=== PATIENT | female | born 1955 | race Caucasian/White ===

== ENCOUNTER 2020-02-24 17:44 | Inpatient (IN) | payer OTHER, SELFPAY ==
[2020-02-24] VITALS (9 sets, daily range): BP systolic 174–208; BP diastolic 77–105; PULSE 65–85; RESP 13–18; TEMP 36.4–36.5; O2SAT 92–100; BMI 46.8
--- NOTE | 2020-02-24 17:56 | XR_ITS ---
WS: [id number] PORTABLE CHEST HISTORY: near syncope COMPARISON: 07/24/2018 Lung volumes are decreased. No abnormality identified. No pleural effusion or pneumothorax. Cardiac size: Normal. Mediastinum/Aorta: Normal mediastinum. No osseous abnormality seen. XR/XR chest 1V portable [id number] IMPRESSION: Unremarkable portable chest.
--- NOTE | 2020-02-24 17:57 | ECG_ITS ---
Measurements Intervals [place] Rate: 74 P: 54 FL: 153 QRS: 10 QRSD: 89 T: 60 QT: 384 QTc: 428 SINUS RHYTHM LEFT VENTRICULAR HYPERTROPHY AND ST-T CHANGE [VOLTAGE CRITERIA PLUS ST/T ABNORMALITY] Compared to ECG 07/24/2018 15:37:15 Left ventricular hypertrophy now present ST (T wave) deviation now present Electronically Signed On 02-24-2020 21:54:43 CDT by Jael Pagan M.D. [id number]
--- NOTE | 2020-02-24 18:02 | W.ED.BACK ---
HPI - Back Pain/Injury General: Chief Complaint: Back Pain/Injury Stated Complaint: R SIDED BACK PAIN Time Seen by Provider: 02/24/20 17:46 History of Present Illness: HPI Narrative: Patient arrived via ambulance with an episode earlier today where she felt dizzy when vomited then she had a charley horse in the right side of her low back and she felt kind of faint and went and sat down and nurse that she does working with her decide an ambulance need to be called and she arrived here much improved since feels little tight in her low back on the right side but that it denies any inHas longstanding history of back pain also takes blood pressure medication has a history of fibromyalgia MD elicited complaint: back pain Pertinent past history: prior back pain Onset (ago): hour(s) Timing: now resolved Severity: mild Location: right flank Radiation: none Exacerbating factors: movement Relieving factors: immobilization Context: other (After vomiting) Associated symptoms: Reports vomiting (X1); Deny abdominal pain, chills, fever(s) or nausea Review of Systems Const: Denies: fever(s), chills or body aches Eyes: Denies: change in vision or blurry vision ENMT: Denies: throat pain or nasal congestion Card: Denies: chest pain or dyspnea on exertion Resp: Denies: dyspnea, productive cough or non-productive cough GI: Reports: vomiting (X1); Denies: abdominal pain or nausea Musc: Reports: back pain (Right flank); Denies: extremity pain Skin/Breast: Denies: rash Neuro: Denies: headache(s) Psych: Denies: anxiety or depression James/Lymph: Denies: easy bruising PFS ED PFSH: Social History Smoking and tobacco status: never smoked Physical Exam Const: COMMON NORMALS: no acute distress, average body habitus and patient oriented x3 HENMT: COMMON NORMALS: normocephalic HEAD & SCALP: normal to inspection and normocephalic FACE & SINUS: normal facial exam Eye: COMMON NORMALS: conjunctivae normal GENERAL EYE: appearance normal, both eyes and all related structures CONJUNCTIVA: Yes conjunctivae normal Neck/C-Spine: COMMON NORMALS: no JVD Chest: COMMONS NORMALS: normal inspection of the chest Resp: COMMON NORMALS: normal respiratory effort and clear to auscultation bilaterally AUSCULTATION: clear to auscultation bilaterally Cardio: COMMON NORMALS: no JVD, regular rate and regular rhythm RATE: regular rate RHYTHM: regular rhythm GI: COMMON NORMALS: Normal to inspection, nondistended, normoactive bowel sounds present : BLADDER/KIDNEY EXAM: Yes CVA tenderness Back/Pelvis: GENERAL BACK: Yes CVA tenderness CVA tenderness: right Extremity: COMMON NORMALS: normal to inspection and full ROM Neuro: COMMON NORMALS: patient oriented x3 Course Vital Signs: Vital signs: Vital Signs Temperature 97.7 F 02/24/20 17:46 Pulse Rate 71 02/24/20 17:46 Respiratory Rate 16 02/24/20 17:46 Blood Pressure 180/77 02/24/20 17:46 Pulse Oximetry 98 02/24/20 17:46 MDM - Back Pain/Injury MDM Narrative: Medical decision making narrative: Reviewed troponin level EKG with Dr. De 1929 Lab Data: Labs: Lab Results 02/24/20 02/24/20 02/24/20 Range/Units 18:08 18:08 18:08 WBC 9.0 (4.0-10.0) 10^3/ uL RBC 4.43 (4.1-5.3) 10^6/u L Hgb 13.1 (11.5-15.3) g/dL Hct 43.6 (37.0-47.0) % MCV 98.4 (81-99) fL MCH 29.6 (28.0-34.0) pg MCHC 30.0 (30.0-36.0) g/dL RDW 14.6 (12.1-15.1) % Plt Count 344 (130-400) 10^3/c mm MPV 10.4 (7.4-10.4) fL Neut % (Auto) 69.9 % Lymph % (Auto) 19.7 % [place] % (Auto) 8.8 % Eos % (Auto) 1.1 % Baso % (Auto) 0.3 % Neut # (Auto) 6.3 (1.8-7.7) 10^3/u L Lymph # (Auto) 1.8 (0.8-4.8) 10^3/u L [place] # (Auto) 0.8 (0.2-0.9) 10^3/u L Eos # (Auto) 0.1 (0.0-0.8) 10^3/u L Baso # (Auto) 0.0 (0.0-0.1) 10^3/u L Nucleated RBC % (a uto) 0 % Nucleated RBCs # 0.0 /100WBC Sodium 141 (136-145) mmol/L Potassium 3.9 (3.5-5.1) mmol/L Chloride 102 (98-107) mmol/L Carbon Dioxide 25 (22-29) mmol/L Anion Gap 17.9 (5-19) BUN 13 (8-23) mg/dL Creatinine 0.7 (0.5-0.9) mg/dL GFR Calculation 84.8 L (90-130) mL/min Glucose 120 H (65-115) mg/dL Calculated Osmolal ity 289 (285-295) mOsm/k g Lactate 2.3 H (0.5-2.2) mmol/L Calcium 9.3 (8.5-10.5) mg/dL Total Bilirubin 0.5 (0.15-1.2) mg/dL AST 24 (0-32) U/L ALT 27 (0-33) U/L Alkaline Phosphata se 73 (35-105) IU/L Troponin T Gen 5 n g/L (0-10) ng/mL Total Protein 7.2 (6.6-8.7) g/dL Albumin 4.1 (3.5-5.2) g/dL Globulin 3.1 (1.3-4.6) g/dL Lipase 19 (13-60) U/L Urine Color (Yellow) Urine Appearance (CLEAR) Urine pH (5-7) Ur Specific Gravit y (1.005-1.030) Urine Protein (Negative) Urine Glucose (UA) (Normal) Urine Ketones (Negative) Urine Blood (Negative) Urine Nitrate (Negative) Urine Bilirubin (NEGATIVE) Urine Urobilinogen (Negative) mg/dL Ur Leukocyte Cinda ase (Negative) Urine RBC (0-2) /hpf Urine WBC (0-5) /hpf Ur Squamous Epith Cells (0-5) Ur Transition Epit h Cell /hpf Urine Bacteria (NONE) Hyaline Casts Urine Mucus 02/24/20 02/24/20 Range/Units 18:08 18:17 WBC (4.0-10.0) 10^3/ uL RBC (4.1-5.3) 10^6/u L Hgb (11.5-15.3) g/dL Hct (37.0-47.0) % MCV (81-99) fL MCH (28.0-34.0) pg MCHC (30.0-36.0) g/dL RDW (12.1-15.1) % Plt Count (130-400) 10^3/c mm MPV (7.4-10.4) fL Neut % (Auto) % Lymph % (Auto) % [place] % (Auto) % Eos % (Auto) % Baso % (Auto) % Neut # (Auto) (1.8-7.7) 10^3/u L Lymph # (Auto) (0.8-4.8) 10^3/u L [place] # (Auto) (0.2-0.9) 10^3/u L Eos # (Auto) (0.0-0.8) 10^3/u L Baso # (Auto) (0.0-0.1) 10^3/u L Nucleated RBC % (a uto) % Nucleated RBCs # /100WBC Sodium (136-145) mmol/L Potassium (3.5-5.1) mmol/L Chloride (98-107) mmol/L Carbon Dioxide (22-29) mmol/L Anion Gap (5-19) BUN (8-23) mg/dL Creatinine (0.5-0.9) mg/dL GFR Calculation (90-130) mL/min Glucose (65-115) mg/dL Calculated Osmolal ity (285-295) mOsm/k g Lactate (0.5-2.2) mmol/L Calcium (8.5-10.5) mg/dL Total Bilirubin (0.15-1.2) mg/dL AST (0-32) U/L ALT (0-33) U/L Alkaline Phosphata se (35-105) IU/L Troponin T Gen 5 n g/L 102 H* (0-10) ng/mL Total Protein (6.6-8.7) g/dL Albumin (3.5-5.2) g/dL Globulin (1.3-4.6) g/dL Lipase (13-60) U/L Urine Color Brown (Yellow) Urine Appearance Cloudy (CLEAR) Urine pH 5 (5-7) Ur Specific Gravit y 1.025 (1.005-1.030) Urine Protein Trace (Negative) Urine Glucose (UA) Norm (Normal) Urine Ketones Negative (Negative) Urine Blood 3+ H (Negative) Urine Nitrate Negative (Negative) Urine Bilirubin 1+ H (NEGATIVE) Urine Urobilinogen Norm (Negative) mg/dL Ur Leukocyte Cinda ase Negative (Negative) Urine RBC Too numerous to c nt H (0-2) /hpf Urine WBC 0-4 H (0-5) /hpf Ur Squamous Epith Cells 0-4 H (0-5) Ur Transition Epit h Cell 0-4 /hpf Urine Bacteria 3+ H (NONE) Hyaline Casts 10-15 H Urine Mucus 4+ EKG Data^: EKG 1: EKG interpretation date: 02/24/20 EKG interpretation time: 18:31 Interpretation: Patient has sinus rhythm ventricular rate 74 bpm has left ventricular hypertrophy ER intervals 153 ms QRS durations [address] depression V5 V6 Discharge Plan Discharge Prescriptions: No Action levothyroxine 100 mcg tablet 100 mcg PO DAILY RF: 0 furosemide 20 mg tablet 20 mg PO DAILY RF: 0 losartan 100 mg tablet 100 mg PO DAILY RF: 0 atenolol 50 mg tablet 50 mg PO DAILY RF: 0 duloxetine 60 mg capsule,delayed release(DR/EC) 60 mg PO BID RF: 0 Coding Level of Care Code 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
[2020-02-24] MEDS: sodium chloride 0.9% 1,000 ML 999 ML IV (18:21)
[2020-02-24 18:22] LABS: Basophils % 0.3 %; Eosinophils # 0.1 10^3/uL (0.0-0.8); Eosinophils % 1.1 %; Hematocrit 43.6 % (37.0-47.0); Hemoglobin 13.1 g/dL (11.5-15.3); Lymphocytes # 1.8 10^3/uL (0.8-4.8); Lymphocytes % 19.7 %; Mean Corpuscular Hemoglobin 29.6 pg (28.0-34.0); Mean Corpuscular Volume 98.4 fL (81-99); Mean Platelet Volume 10.4 fL (7.4-10.4); Monocytes # 0.8 10^3/uL (0.2-0.9); Monocytes % 8.8 %; Neutrophils # 6.3 10^3/uL (1.8-7.7); Neutrophils % 69.9 %; Nucleated Red Blood Cells % 0 %; Platelet Count 344 10^3/cmm (130-400); Red Blood Count 4.43 10^6/uL (4.1-5.3); Red Cell Distribution Width 14.6 % (12.1-15.1)
[2020-02-24 18:35] LABS: Specific Gravity, Urine 1.025 (1.005-1.030); Urine Appearance Cloudy (CLEAR); Urine Color Brown (Yellow); pH Urine 5 (5-7)
[2020-02-24 18:36] LABS: Alanine Aminotransferase 27 U/L (0-33); Albumin Level 4.1 g/dL (3.5-5.2); Alkaline Phosphatase 73 IU/L (35-105); Anion Gap 17.9 (5-19); Aspartate Amino Transferase 24 U/L (0-32); Blood Urea Nitrogen 13 mg/dL (8-23); Calcium 9.3 mg/dL (8.5-10.5); Carbon Dioxide 25 mmol/L (22-29); Chloride 102 mmol/L (98-107); Globulin 3.1 g/dL (1.3-4.6); Glomerular Filtration Rate 84.8 mL/min (90-130); Glucose 120 mg/dL (65-115); Lactate (Lactic Acid level) 2.3 mmol/L (0.5-2.2); Lipase 19 U/L (13-60); Osmolality Calculated 289 mOsm/kg (285-295); Potassium 3.9 mmol/L (3.5-5.1); Sodium 141 mmol/L (136-145); Total Bilirubin 0.5 mg/dL (0.15-1.2); Total Protein 7.2 g/dL (6.6-8.7)
[2020-02-24 18:36] LABS: Add Urine Microscopic? YES; Bilirubin Urine 1+ (NEGATIVE); Blood Urine 3+ (Negative); Glucose Urine UA Norm (Normal); Ketones Urine Negative (Negative); Leukocyte Esterase Urine Negative (Negative); Nitrate Urine Negative (Negative); Protein Urine Trace (Negative); Urobilinogen Urine Norm (Negative)
--- NOTE | 2020-02-24 18:43 | CTR_ITS ---
PROCEDURE INFORMATION: Exam: CT Abdomen And Pelvis Without Contrast Exam date and time: 02/24/2020 6:43 PM Age: 64 years old Clinical indication: Abdominal pain; Localized; Right; Prior surgery; Surgery type: , hysto; Additional info: Right flank pain TECHNIQUE: Imaging protocol: Computed tomography of the abdomen and pelvis without contrast. Radiation optimization: All CT scans at this facility use at least one of these dose optimization techniques: automated exposure control; mA and/or kV adjustment per patient size (includes targeted exams where dose is matched to clinical indication); or iterative reconstruction. COMPARISON: No relevant prior studies available. FINDINGS: There is mild right hydronephrosis secondary to approximately 8 x 7 x 6 mm calculus in proximal portion of ureter. There is small stone in each kidney, without significant left hydronephrosis. Urinary bladder is nearly collapsed. Low density throughout the liver is most compatible with fatty infiltration. Spleen, pancreas, and adrenal glands appear grossly unremarkable. Structure felt to represent the appendix appears grossly unremarkable. Bowel loops do not appear significantly dilated. There is mild diverticulosis of the sigmoid colon. No large amount of free fluid demonstrated. Abdominal aorta does not appear dilated. There is retroaortic left renal vein. There is small fat-containing umbilical hernia. There are degenerative changes in the lumbar spine. There are prominent endplate degenerative changes at L5-S1. Visualized heart appears mildly enlarged. Visualized lung bases demonstrate no significant opacification. Please note examination is limited without IV contrast and enteric contrast. CT/CT kidney stone 31497 IMPRESSION: There is mild right hydronephrosis secondary to approximately 8 x 7 x 6 mm calculus in proximal portion of ureter. There is small stone in each kidney, without significant left hydronephrosis. Low density throughout the liver is most compatible with fatty infiltration. There are degenerative changes in the lumbar spine. There are prominent endplate degenerative changes at L5-S1. Visualized heart appears mildly enlarged. Other findings as discussed above. Total DLP: 1791.59 mGy-cm Radiation Dose CTDIVOL = (mGy): DLP = 1791.59 (mGy-cm)
[2020-02-24] MEDS: ondansetron 2 mg/ML SDV 2 mL 4 MG IVP (18:48)
[2020-02-24] MEDS: ketorolac 30 mg/mL INJ IVP (18:48)
[2020-02-24 18:59] LABS: Mucus Urine 4+; RBC Urine TOO NUMEROUS TO CNT /hpf (0-2)
[2020-02-24 19:01] LABS: Bacteria Urine 3+; Squamous Epithelial Cell Urine 0-4 (0-5); Transitional Epi Cells Urine 0-4 /hpf; WBC Urine 0-4 /hpf (0-5)
[2020-02-24 19:02] LABS: Add Urine Culture? Yes
--- NOTE | 2020-02-24 19:04 | PC.NURSE ---
REPORT RECEIVED FROM TRUMAN KNAPP AND CARE TRANSFERRED TO TRUMAN ARNDT
[2020-02-24 19:17] LABS: Troponin T (5th) Once 102 ng/mL (0-10)
[2020-02-24] MEDS: morphine 4 mg/mL SDV 1 mL IVP (19:47)
--- NOTE | 2020-02-24 20:14 | PM.HP ---
Providers/Chief Complaint Primary Care Provider: Antonio Walls DO Chief Complaint: R SIDED BACK PAIN History of Present Illness Amanda Simpson is a 64 year old female came in with chief complaint of right flank pain. Patient is stating that she was at work when she started experiencing right flank pain which are associated with nausea and vomiting. She vomited 3 times which was bilious in nature. She did not notice any fever but has been experiencing hot flashes. Her pain is not radiating towards her groin area, she is denying dysuria, she has not noticed any blood in her urine. She has not experienced these kind of symptoms before. After vomiting 3 times she felt dizzy and had 1 presyncopal event. She did not experience any chest pain, shortness of breath, orthopnea, PND. Patient has been experiencing acid reflux for last few weeks but she would not call it chest pain. Diagnostics in the ER revealed 6 mm stone in right kidney with mild hydronephrosis EKG showed ST depression in V5 V6, her systolic blood pressure was 200 mmHg Fifth generation troponin 102 with negative delta Patient chest pain-free at the time of my interview Review of Systems Const: Denies: fever(s) or chills Eyes: Denies: change in vision ENMT: Denies: throat pain Card: Denies: chest pain, palpitations, edema, swelling of feet/ankles, syncope or pre-syncope Resp: Denies: dyspnea GI: Reports: abdominal pain, nausea, vomiting and heartburn; Denies: hematemesis, diarrhea or constipation : Reports: flank pain; Denies: difficulty voiding, dysuria or urinary frequency Musc: Denies: neck pain Skin/Breast: Denies: rash Neuro: Denies: headache(s) Psych: Denies: anxiety Endo: Denies: polyuria James/Lymph: Denies: easy bruising All/Imm: Denies: urticaria Medications/Allergies Home Medications Medication Instructions Recorded Confirmed Last Taken Type atenolol 50 mg PO DAILY 02/24/20 02/24/20 02/23/20 History duloxetine 60 mg PO BID 02/24/20 02/24/20 02/23/20 History furosemide 20 mg PO DAILY 02/24/20 02/24/20 Unknown History levothyroxine 100 mcg PO DAILY 02/24/20 02/24/20 02/23/20 History losartan 100 mg PO DAILY 02/24/20 02/24/20 02/23/20 History Allergies Allergy/AdvReac Type Severity Reaction Status Date / Time No Known Allergies Allergy Verified 02/24/20 17:55 PFSH Acute PFSH: Medical History (Updated 02/24/20 @ 22:00 by Wyatt Miller MD) Anxiety Fibromyalgia Hypertension Hypothyroidism Surgical History (Updated 02/24/20 @ 21:55 by Wyatt Miller MD) H/O: hysterectomy Family History (Updated 02/24/20 @ 21:55 by Wyatt Miller MD) Grandfather Family history of premature coronary artery disease Grandfather of HI at age 50 Social History (Updated 02/24/20 @ 21:55 by Wyatt Miller MD) Smoking and tobacco status: never smoked Alcohol intake: never Substance/Drug Use: never Household members: family Housing: House Vitals/I&O/Wt Last Vital Signs Temp 97.7 F 02/24/20 17:46 Pulse 74 02/24/20 19:34 Resp 18 02/24/20 19:47 BP 208/86 02/24/20 19:34 Pulse Ox 98 02/24/20 19:34 Weight last 48 hrs Weight 108.862 kg Physical Exam Narrative: EXAM NARRATIVE: Head to toe examination Morbidly obese female Uncomfortable because of right flank pain Systolic blood pressure 180 mmHg Able to give me above-mentioned detail EOMI, PERRLA Awake alert oriented x3, GCS 15 Neurologically nonfocal exam Skin does not show any sign ischemia gangrene ulcer Abdomen soft, nontender, No CVA tenderness S1, S2 sinus tachycardia Lungs are clear to auscultation Nonpitting edema of lower extremities Appropriate mood and affect Pertinent negative No CVA tenderness Data : 02/24/20 18:08 02/24/20 18:08 A&P Assessment and plan (1) Nephrolithiasis: Status: Acute (2) Renal colic on right side: Status: Acute (3) Hydronephrosis: Status: Acute (4) Morbid obesity: Status: Acute (5) GERD (gastroesophageal reflux disease): Status: Acute (6) Abnormal finding on EKG: Status: Acute Additional A&P Information Right-sided nephrolithiasis 6 mm stone with mild hydronephrosis Creatinine is normal Patient is denying any signs of UTI I will go ahead and treat her with alpha-1 blocking agent to facilitate passage of stone since it is less than 10 mm no urgent need of intervention however hydronephrosis is unusual with a 6 mm stone we will consult Dr. Marc Marks with Dilaudid Abnormal EKG Patient is chest pain-free, ST depression V5 V6, hypertensive urgency, abnormal troponin 102 I would go ahead and treat her with full dose Lovenox for now we will get echo in the morning to see any wall motion abnormality, load her with aspirin and Plavix Hypothyroidism: Continue levothyroxine Hypertensive urgency due to renal colic I would continue her losartan and atenolol Full code DVT prophylaxis Lovenox Cardiac Attestations Medical Necessity Statement*: Anticipating her stay to be more than 2 midnights currently needs hospitalization for renal colic, hydronephrosis and abnormal EKG and abnormal troponin currently being treated with ACS work-up Time Spent in Patient Care: 50 Coding Level of Care Code 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
[2020-02-24] MEDS: HYDROmorphone 1 mg/mL INJ 1 mL IVP (20:43)
--- NOTE | 2020-02-24 21:24 | ECG_ITS ---
Measurements Intervals [place] Rate: 73 P: 63 AR: 155 QRS: 30 QRSD: 86 T: 67 QT: 396 QTc: [address] DEPRESSION [0.05+ mV ST DEPRESSION] Compared to ECG 07/24/2018 15:37:15 ST (T wave) deviation now present Electronically Signed On 02-24-2020 22:07:09 CDT by Jael Pagan M.D. [id number]
[2020-02-24 21:41] LABS: Troponin 5 2HR 85.73 ng/mL (0-10)
[2020-02-24] MEDS: atorvastatin 40 mg Tablet 80 MG PO (22:27)
[2020-02-24] MEDS: aspirin 325 mg EC Tablet PO (22:27)
[2020-02-24] MEDS: enoxaparin 120 mg/0.8 mL Syringe 110 MG SUBCUT (22:27)
[2020-02-24] MEDS: clopidogrel 300 mg Tablet PO (22:27)
[2020-02-24] MEDS: HYDROmorphone 1 mg/mL INJ 1 mL 2 MG IVP (23:22)
[2020-02-25] VITALS (14 sets, daily range): BP systolic 116–188; BP diastolic 57–109; PULSE 66–99; RESP 13–23; TEMP 36.5–36.7; O2SAT 91–99
--- NOTE | 2020-02-25 00:17 | PC.NURSE ---
The patient has been up and down in bed and side of bed for the last few hours, seemingly restless and cant leep. medication already in play will continue to monitor.
--- NOTE | 2020-02-25 00:26 | PC.NURSE ---
patient arrived on the floor via stretcher from ER. patient alert and oriented and not c/o pain until later. patients blood pressure was high upon arrival at near 200 over 80s
--- NOTE | 2020-02-25 01:24 | ECG_ITS ---
Measurements Intervals [place] Rate: 63 P: 19 WV: 156 QRS: 20 QRSD: 89 T: 65 QT: 437 QTc: [address] & T-WAVE ABNORMALITY Compared to ECG 02/24/2020 21:36:21 T-wave abnormality now present ST (T wave) deviation no longer present Electronically Signed On 02-25-2020 11:53:25 CDT by Jael Pagan M.D. [id number]
[2020-02-25] MEDS: hyDRALAzine 20 mg/mL INJ 1 mL 10 MG IVP (01:37)
--- NOTE | 2020-02-25 02:27 | PC.NURSE ---
Patients bp was still close to [address] Miller before 1 and got an order for hydralazine one time to see if it helps. Administered and bp was 185/97. Will run bp one hour after giving and continue to monitor.
[2020-02-25 05:00] LABS: Basophils % 0.3 %; Hematocrit 44.9 % (37.0-47.0); Hemoglobin 13.2 g/dL (11.5-15.3); Lymphocytes # 1.6 10^3/uL (0.8-4.8); Lymphocytes % 15.5 %; Mean Corpuscular HGB Conc 29.4 g/dL (30.0-36.0); Mean Corpuscular Hemoglobin 29.7 pg (28.0-34.0); Mean Corpuscular Volume 100.9 fL (81-99); Mean Platelet Volume 10.5 fL (7.4-10.4); Monocytes # 0.7 10^3/uL (0.2-0.9); Monocytes % 7.2 %; Neutrophils # 7.8 10^3/uL (1.8-7.7); Neutrophils % 76.8 %; Nucleated Red Blood Cells % 0 %; Platelet Count 340 10^3/cmm (130-400); Red Blood Count 4.45 10^6/uL (4.1-5.3); Red Cell Distribution Width 14.6 % (12.1-15.1); White Blood Count 10.1 10^3/uL (4.0-10.0)
[2020-02-25] MEDS: HYDROmorphone 1 mg/mL INJ 1 mL 2 MG IVP (05:04)
--- NOTE | 2020-02-25 05:06 | ECG_ITS ---
Measurements Intervals [place] Rate: 79 P: 40 MN: 155 QRS: 7 QRSD: 87 T: 71 QT: 395 QTc: 454 SINUS RHYTHM LEFT VENTRICULAR HYPERTROPHY AND ST-T CHANGE Compared to ECG 02/24/2020 21:36:21 Left ventricular hypertrophy now present ST (T wave) deviation still present Electronically Signed On 02-25-2020 11:50:14 CDT by Jael Pagan M.D. [id number]
[2020-02-25 05:14] LABS: Blood Urea Nitrogen 19 mg/dL (8-23); Calcium 9.1 mg/dL (8.5-10.5); Carbon Dioxide 27 mmol/L (22-29); Chloride 101 mmol/L (98-107); Glomerular Filtration Rate 84.8 mL/min (90-130); Glucose 147 mg/dL (65-115); Osmolality Calculated 289 mOsm/kg (285-295); Sodium 140 mmol/L (136-145)
[2020-02-25 05:22] LABS: Anion Gap 17.3 (5-19); Potassium 5.3 mmol/L (3.5-5.1)
--- NOTE | 2020-02-25 05:40 | NMCV_ITS ---
NM jade perf SPECT r/s* [id number] Amanda Simpson Age: 64 Gender: F : 1955 Exam Date: 02/25/2020 05:40 Ordering Phys: Wyatt Miller MD Technologist: LIZ Kaufman Exam Location: [facility] Indications: back pain STRESS TEST Please see separate stress test report in [facility]any for full findings IMAGE PROTOCOL Rest/Stress 1 Lexiscan Day Radiopharmaceutical Dose (mCi) Administration Site Administered by Rest: Tc-99m 11.0 IV LIZ Baig Sestamibi Stress:Tc-99m 32.6 IV LIZ Kaufman Sestamibi Rest: 25-Feb-2020 60 Discovery 630 Stress: 25-Feb-2020 45 Discovery 630 0.4mg Lexiscan. Images obtained in supine and prone position. SPECT RESULTS Technical Quality: Good Raw Data Analysis: Breast attenuation, Subdiaphragmatic activity Image Corrections: No attenuation or motion correction applied Summed Stress Score: 7 Summed Rest Score: 4 Summed Difference Score: 5 PERFUSION FINDINGS Small area of patchy decreased tracer uptake noted in mid to distal anterior wall on the rest images which showed medium-sized area of moderate reversibility on stress images suggestive of small area for myocardial infarction surrounded by moderate area of neel-infarct ischemia in LAD territory. Large area of decreased tracer uptake noted in basal to distal inferior and basal to mid inferolateral wall on the rest images which improved on stress images suggestive of artifact. FUNCTIONAL RESULTS (calculated via Gated SPECT) Stress Image LV EF (%): 71 Stress EDV (mL):75 TID: 1.15 Stress ESV (mL):22 FUNCTIONAL FINDINGS: There is normal left ventricular systolic function. IMPRESSIONS Small area of old myocardial infarction surrounded by moderate area of medium- sized neel-infarct ischemia noted in mid to distal anterior wall suggestive of possible lesion in LAD territory.TID ratio was elevated which could be secondary to left ventricle hypertrophy/subendocardial ischemia however cannot rule out multivessel coronary artery disease. EKG segment will be documented separately. Wyatt Blas MD (Electronically Signed) Final Date: 25 Feb 2020 14:13 S
--- NOTE | 2020-02-25 06:00 | ECG_ITS ---
NAME OF STUDY: LEXISCAN SESTAMIBI STRESS TEST INDICATION: Angina RESULTS TO LEONELA ESPINO DO LEXISCAN STRESS TEST ORDERING PHYSICIAN: Hospitalist CLINICAL INFORMATION: Unknown INTERPRETATION: 1. The patient was brought to the laboratory where Lexiscan was infused over 20 seconds. The resting blood pressure was 132/75. Maximum blood pressure was 232/68. The resting heart rate was 77 beats per minute. The maximum heart rate is 107 beats per minute. 2. The baseline electrocardiogram reveals sinus rhythm with unusual R wave progression and nonspecific ST wave changes 3. With Lexiscan infusion, there were no ST segment changes to suggest ischemia. 4. The patient experienced no symptoms or arrhythmias during the examination. CONCLUSION: 1. Unremarkable Lexiscan infusion. 2. Nuclear imaging to follow. Electronically Signed On 02-25-2020 12:00:24 CDT by Nomi Lora M.D. [id number]
--- NOTE | 2020-02-25 07:00 | USCV_ITS ---
Amanda Simpson Age: 64 Gender: F : 1955 Exam Date: 02/25/2020 06:12 Ordering Phys: Wyatt Miller MD Technologist: Dorothy Boudreaux [place] [facility] [place] Indication: wall motion abnormality BP: 167 / 107 HR: 75 Rhythm: Sinus Technical Quality: Suboptimal MEASUREMENTS (Male / Female) Normal Values 2D ECHO LV Diastolic Diameter PLAX 3.0 cm 4.2 - 5.9 / 3.9 - 5.3 cm LV Systolic Diameter PLAX 2.0 cm LV Chamber Size 2.9 cm IVS Diastolic Thickness 1.4 cm 0.6 - 1.0 / 0.6 - 0.9 cm IVS Systolic Thickness 1.3 cm LVPW Diastolic Thickness 2.2 cm 0.6 - 1.0 / 0.6 - 0.9 cm LVPW Systolic Thickness 2.1 cm RV Chamber Size 2.0 cm LVOT Diameter 2.0 cm LV Ejection Fraction 2D Teich 64.3 % LV Ejection Fraction MOD 2C 37.0 % LV Ejection Fraction 2C AL 39.1 % LA Diameter 4.0 cm LA Width 2.8 cm LA Height 4.3 cm RA Width 2.1 cm RA Height 2.6 cm Aorta at Sinotubular Diameter 2.5 cm M-MODE LV Diastolic Diameter MM 3.1 cm 4.2 - 5.9 / 3.9 - 5.3 cm LV Systolic Diameter MM 1.3 cm LV Ejection Fraction MM Teich 88.4 % IVS Diastolic Thickness MM 0.9 cm 0.6 - 1.0 / 0.6 - 0.9 cm IVS Systolic Thickness MM 1.3 cm LVPW Diastolic Thickness MM 1.2 cm 0.6 - 1.0 / 0.6 - 0.9 cm LVPW Systolic Thickness MM 2.1 cm Aortic Annulus Diameter 2.9 cm LA Ao Ratio MM 1.4 MV E Point Septal Separation 0.7 cm DOPPLER AV Peak Velocity 170.0 cm/s LVOT Peak Velocity 110.0 cm/s AV Area Cont Eq vti 2.1 cm squared AV Area Cont Eq pk 2.1 cm squared MV Area PHT 6.7 cm squared Mitral E to A Ratio 0.8 MV E' Velocity 11.0 cm/s Mitral E to MV E' Ratio 8.3 Mitral E to LV E' Lateral Ratio 8.3 Mitral E to LV E' Septal Ratio 8.3 TR Peak Velocity 253.0 cm/s TR Peak Gradient 25.5 mmHg TV Peak E Velocity 59.0 cm/s Right Atrial Pressure 3.0 mmHg Pulmonary Artery Systolic Pressu 28.6 mmHg PV Peak Velocity 88.0 cm/s RV Acceleration Time 0.1 s RV Ejection Time 0.3 s RV AcT/ET 0.4 FINDINGS Left Ventricle Left ventricle is poorly seen. There are no obvious wall motion disturbances. There may be mild left ventricular hypertrophy. The overall ejection fraction is within normal range. There is grade 1 diastolic dysfunction. Right Ventricle Normal right ventricular size and systolic function. Normal right ventricular systolic pressure. Right Atrium The right atrium is normal in size. Left Atrium Mildly increased left atrial size. Mitral Valve Poorly seen without obvious regurgitation Aortic Valve Poorly seen without obvious stenosis or regurgitation Tricuspid Valve Poorly seen Pulmonic Valve Not seen Pericardium Normal pericardium without effusion. Aorta Normal ascending aorta dimension. CONCLUSIONS Left ventricle is poorly seen. There are no obvious wall motion disturbances. There may be mild left ventricular hypertrophy. The overall ejection fraction is within normal range. There is grade 1 diastolic dysfunction. Mildly increased left atrial size. There are no prior echocardiogram studies to compare. Dr. Nomi Lora MD (Electronically Signed) Final Date: 25 Feb 2020 09:08 S
--- NOTE | 2020-02-25 07:47 | XR_ITS ---
WS: [id number] ABDOMEN 1 VIEW(S) HISTORY: f/u right ureteral stone COMPARISON: 02/24/2020 Normal bowel gas pattern. 9 mm calcification in the RIGHT abdomen at the L3 level corresponds in size and location to the guero mckee described stone in the ureter. Additional 7 mm calcification lower pole RIGHT kidney. No bone abnormality. XR/XR KUB [id number] IMPRESSION: Mid RIGHT ureteral calcification measures 9 mm. No interval change in location since 02/24/2020.
--- NOTE | 2020-02-25 07:49 | P.CONIM_ITS ---
Providers/Reason For Consult Consulting Physican/Specialty*: Urology/Tran Reason for Consult*: Obstructing right proximal ureteral stone Attending Physician: Wyatt Miller MD Primary Care Provider: Antonio Walls DO History of Present Illness History of Present Illness Amanda Simpson is a 64 year old female who I evaluated for the first time today at the request of Dr. Kraus for an obstructing right proximal ureteral stone complicated by concern for possible cardiac ischemia. No prior history of stones. Pain began suddenly the day of admission and was associated with nausea and vomiting but no fever and chills. No significant lower urinary tract symptoms. CT scan confirmed an 8 x 6 x 6 mm stone in the right proximal ureter and 2 smaller stones 1 in each kidney. Creatinine was well maintained in the normal range. Due to the severity of her pain which she described as 10 out of 10, the worst she is ever experienced she was admitted for further symptomatic control as well as work-up of elevated troponin, EKG changes with ST elevation. KUB this morning confirmed that the stone was roughly in the same position. Possibly slightly larger than initial measurement. Pain is been reasonably well controlled. Still with ongoing evaluation for cardiac status and final recommendations pending. I reviewed with the patient the findings on CT scan, usual treatment options available including ESWL and endoscopy or if necessary temporizing stent for relief of obstruction while remainder of cardiac evaluation is completed. Reviewed that ESWL cannot be performed on anticoagulation. Stent and endoscopy can though. Review of Systems Const: Denies: fever(s), chills or body aches Eyes: Denies: change in vision or other ENMT: Denies: odynophagia or hoarseness Card: Denies: chest pain, palpitations or orthopnea Resp: Denies: productive cough, non-productive cough or wheezing GI: Reports: abdominal pain, nausea and vomiting; Denies: change in bowel habits : Reports: flank pain; Denies: difficulty voiding, urinary urgency or hematuria Musc: Denies: extremity pain, joint swelling or joint redness Skin/Breast: Denies: rash, pruritus or erythema Neuro: Denies: headache(s), lack of coordination, difficulty walking or behavioral changes Psych: Reports: anxiety (Related to the severity of her pain.); Denies: depression Endo: Denies: polydipsia or flushing James/Lymph: Denies: easy bruising, easy bleeding or enlarged lymph nodes All/Imm: Denies: urticaria or throat swelling Meds/Allergies Home Medications and Allergies Home Medications Medication Instructions Recorded Confirmed Last Taken Type atenolol 50 mg PO DAILY 02/24/20 02/24/20 02/23/20 History duloxetine 60 mg PO BID 02/24/20 02/24/20 02/23/20 History furosemide 20 mg PO DAILY 02/24/20 02/24/20 Unknown History levothyroxine 100 mcg PO DAILY 02/24/20 02/24/20 02/23/20 History losartan 100 mg PO DAILY 02/24/20 02/24/20 02/23/20 History Allergies Allergy/AdvReac Type Severity Reaction Status Date / Time No Known Allergies Allergy Verified 02/24/20 17:55 Current Medications Current Medications Generic Name Dose Route Start Last Admin Trade Name Freq PRN Reason Stop Dose Admin Atorvastatin Calcium 80 mg 02/24/20 22:18 02/24/20 22:27 Lipitor PO 80 mg BEDTIME GABRIEL Administration PFSH Acute PFSH: Medical History Anxiety Fibromyalgia Hypertension Hypothyroidism Right ureteral calculus Surgical History H/O: hysterectomy Family History Grandfather Family history of premature coronary artery disease Grandfather of [place] at age 50 Social History Smoking and tobacco status: never smoked Alcohol intake: never Substance/Drug Use: never Household members: family Housing: House Vitals/I&O/Wt Last Vital Signs Temp 97.8 F 02/25/20 07:00 Pulse 77 02/25/20 07:00 Resp 14 02/25/20 07:00 BP 188/83 02/25/20 07:00 Pulse Ox 91 02/25/20 07:00 02/24/20 02/25/20 02/25/20 22:59 06:59 14:59 Intake Total 0 / 0 1230 / 1230 Balance 0 / 0 1230 / 1230 Weight last 48 hrs Weight 240 lb Physical Exam Const: COMMON NORMALS: no acute distress, alert and well nourished GENERAL APPEARANCE: well kempt and well developed ORIENTATION/CONSCIOUSNESS: not confused HENMT: COMMON NORMALS: normocephalic and atraumatic HEAD & SCALP: normocephalic and atraumatic Eye: COMMON NORMALS: conjunctivae normal and no scleral icterus CONJUNCTIVA: Yes conjunctivae normal Neck/C-Spine: COMMON NORMALS: full ROM GENERAL: Yes normal visual inspection Resp: COMMON NORMALS: normal respiratory effort EFFORT & INSPECTION: No labored and No Actively coughing Neuro: SENSORIUM/ORIENTATION: Yes alert Psych: COMMON NORMALS: mental status grossly normal APPEARANCE: Yes grossly normal and Yes well kempt ATTITUDE: Yes calm and Yes engaged Skin: COMMON NORMALS: no rashes or lesions noted and no jaundice GENERAL SKIN EXAM: no rashes or lesions noted A&P Assessment and plan (1) Right ureteral calculus: Approximately 9 mm right proximal ureteral stone with obstructive changes and severe symptomatology presentation. Pain being well managed now currently. Definitive treatment options pending evaluation of cardiac status (elevated troponin and ST elevation) at presentation to the emergency department. Reviewed temporizing stenting versus endoscopic laser lithotripsy versus ESWL all of which will be dependent to some degree on cardiac evaluation status. Recommendations: More to follow. Status: Acute (2) Renal colic on right side: Secondary to 9 mm proximal right ureteral stone Status: Acute (3) Hydronephrosis: Secondary to 9 mm proximal right ureteral stone Status: Acute Qualifiers: Hydronephrosis type: with ureteral calculous obstruction Qualified Code(s): N13.2 - Hydronephrosis with renal and ureteral calculous obstruction (4) Nephrolithiasis: Small bilateral nonobstructing stones. Identified on CT scan during evaluation of right renal colicky symptoms. Status: Acute Consult Attestations Medical Necessity Statement: See attending Coding Level of Care Code Acute Agricultural Adviser for [facility] Fwd Diagnoses Right ureteral calculus N20.1 Renal colic on right side N23 Hydronephrosis N13.2 Hydronephrosis type: with ureteral calculous obstruction Nephrolithiasis N20.0
--- NOTE | 2020-02-25 09:26 | SUR.PREOP ---
Patient reports no pain or discomfort prior to the start of the procedure.
[2020-02-25] MEDS: regadenoson 0.4 Mg/5 ml Syringe IVP (09:44)
--- NOTE | 2020-02-25 09:46 | P.PN_ITS ---
Subjective Subjective: Interval history: Chart reviewed, including imaging, AM labs noted with mild hyperkalemia. Significantly hypertensive but afebrile. Seen after returning from nuclear stress test, reports continued R flank pain and some substernal chest tightness but does not appear overtly uncomfortable or in acute distress. Discussed stress test results with Dr. Blas and case discussed with Dr. Tran. Medications: Reviewed: Yes Medication Review Details: Active Medications Generic Name Dose Route Start Last Admin Trade Name Freq PRN Reason Stop Dose Admin Aminophylline 25 mg 02/25/20 07:02 Aminophylline IVP 02/26/20 07:01 Q2M PRN see dose instruct ions Aspirin 81 mg 02/25/20 09:00 Aspirin Ec PO DAILY [facility] Atenolol 50 mg 02/25/20 09:00 Tenormin PO DAILY [facility] Atorvastatin Calci um 80 mg 02/24/20 22:18 02/24/20 22:27 Lipitor PO 80 mg BEDTIME GABRIEL Administration Clopidogrel Bisulf ate 75 mg 02/25/20 09:00 Plavix PO DAILY [facility] Duloxetine HCl 60 mg 02/25/20 09:00 Cymbalta PO BID [facility] Enoxaparin Sodium 110 mg 02/25/20 08:00 Lovenox SUBCUT Q12H [facility] Furosemide 20 mg 02/25/20 08:00 Lasix PO DAILY@0800 [facility] Hydromorphone HCl 1 mg 02/25/20 05:42 Dilaudid Inj IVP Q4H PRN PAIN Levothyroxine Sodi um 100 mcg 02/25/20 09:00 Synthroid PO DAILY [facility] Losartan Potassium 100 mg 02/25/20 09:00 Cozaar PO DAILY [facility] Nitroglycerin 0.5 inch 02/25/20 05:45 Nitro-Bid TOPICAL Q6H GABRIEL Nitroglycerin 0.4 mg 02/25/20 07:02 Nitrostat SUBLINGUAL 02/26/20 07:01 Q5M PRN CHEST PAIN Ondansetron HCl 4 mg 02/25/20 07:02 Zofran IVP Q2M PRN NAUSEA Senna/Docusate Sod ium 1 tab 02/25/20 09:00 Senna-S PO DAILY [facility] Tamsulosin HCl 0.4 mg 02/25/20 09:00 Flomax PO DAILY [facility] No Known Allergies Allergy (Verified 02/24/20 17:55) Vitals/I&O/Wt Last Vital Signs Temp 97.8 F 02/25/20 07:00 Pulse 77 02/25/20 08:57 Resp 14 02/25/20 07:00 BP 188/83 02/25/20 07:00 Pulse Ox 93 02/25/20 08:57 02/24/20 02/25/20 02/25/20 22:59 06:59 14:59 Intake Total 0 / 0 1230 / 1230 Balance 0 / 0 1230 / 1230 Weight last 48 hrs Weight 108.862 kg Physical Exam Const: COMMON NORMALS: no acute distress, patient oriented x3 and alert GENERAL APPEARANCE: cooperative and comfortable NUTRITIONAL APPEARANCE: obese morbidly obese ORIENTATION/CONSCIOUSNESS: Yes awake HENMT: COMMON NORMALS: normocephalic, atraumatic, hearing grossly normal bilaterally and moist oral mucous membranes HEAD & SCALP: normocephalic and atraumatic Eye: COMMON NORMALS: Equal, round and reactive pupils present, EOMs intact bilaterally and conjunctivae normal CONJUNCTIVA: Yes conjunctivae normal PUPIL: Yes Equal, round and reactive pupils present Neck/C-Spine: COMMON NORMALS: full ROM GENERAL: Yes normal visual inspection and Yes trachea midline Chest: CHEST: Yes Symmetrical chest wall rise Resp: COMMON NORMALS: normal respiratory effort, No retractions, No use of accessory muscles and clear to auscultation bilaterally EFFORT & INSPECTION: Yes able to speak in complete sentences, Yes symmetric chest movement and No tachypneic AUSCULTATION: clear to auscultation bilaterally OTHER: -on 2 L NC Cardio: COMMON NORMALS: regular rate, regular rhythm, S1 normal heart sound present, S2 normal heart sound present and No murmurs present (Cardio) RATE: regular rate RHYTHM: regular rhythm HEART SOUNDS: S1 normal heart sound present and S2 normal heart sound present GI: COMMON NORMALS: Normal to inspection, nondistended, normoactive bowel sounds present, Soft to palpation and non-tender INSPECTION: Yes central obesity PALPATION: Yes Soft to palpation : BLADDER/KIDNEY EXAM: Yes CVA tenderness on the right and localized Back/Pelvis: GENERAL BACK: Yes CVA tenderness CVA tenderness: right Extremity: COMMON NORMALS: normal to inspection, full ROM, no clubbing, cyanosis or edema and no pedal edema Neuro: COMMON NORMALS: patient oriented x3, moves all extremities, no focal motor deficits, no sensory deficits noted and gait normal SENSORIUM/ORIENTATION: Yes alert Psych: COMMON NORMALS: mental status grossly normal, Normal thought process present, cooperative, normal affect and speech normal SPEECH: Yes normal speech THOUGHT PROCESS: Normal thought process present Skin: COMMON NORMALS: no rashes or lesions noted, no jaundice, no petechiae and no mottling GENERAL SKIN EXAM: no rashes or lesions noted Data : 02/25/20 04:40 02/25/20 04:40 A&P Assessment and plan (1) Nephrolithiasis: -noted to have R 8 x 7 x 6 mm calculus with mild hydronephrosis -Urology consult by Dr. Tran appreciated -pain control, IVF hydration, strain urine -UA with noted hematuria, bacteria, hyaline casts -renal function wnl, continue to monitor -monitor urine output -flomax Status: Acute (2) Hydronephrosis: -as noted above Status: Acute Qualifiers: Hydronephrosis type: unspecified Qualified Code(s): N13.30 - Unspecified hydronephrosis (3) Renal colic on right side: -as noted above Status: Acute (4) Abnormal finding on EKG: -Noted to have ST depression on EKG -Troponins noted, delta not calculated -Telemetry monitoring -Echo limited study but no noted gross wall motion abnormalities, G1DD -Nuclear stress testing today with noted small area of old NH surrounded by moderate area of medium sized neel-infarct ischemia noted in leads to distal anterior wall suggestive of possible lesion in the LAD territory, TID ratio is elevated. Will likely need further evaluation with cardiac catheterization. Results discussed with Dr. Blas. -On therapeutic Lovenox, aspirin, statin, Plavix; resume beta-kassy post stress testing. We will hold anticoagulation for planned procedure tomorrow -Noted hypertensive urgency, otherwise hemodynamically stable, continue to monitor vital signs Status: Acute (5) GERD (gastroesophageal reflux disease): Status: Chronic Qualifiers: Esophagitis presence: without esophagitis Qualified Code(s): K21.9 - Gastro-esophageal reflux disease without esophagitis (6) Hypertension: -Presented with hypertensive urgency, remains hypertensive -Continue to monitor vital signs -Continue losartan, Lasix; resume atenolol after stress test Status: Chronic Qualifiers: Hypertension type: essential hypertension Qualified Code(s): I10 - Ess ential (primary) hypertension (7) Hypothyroidism: -check TSH -continue levothyroxine Status: Chronic Qualifiers: Hypothyroidism type: unspecified Qualified Code(s): E03.9 - Hypothyroidism, unspecified (8) Anxiety: Status: Chronic (9) Fibromyalgia: -on Cymbalta Status: Chronic (10) Morbid obesity: -BMI-47 kg/m2 -Planning on gastric bypass surgery Status: Chronic Additional A&P Information -noted hyperglycemia, no dx of DM, check A1c -GI ppx with famotidine -DVT ppx not needed as on therapeutic lovenox -Dispo: home -Code status: FULL code Attestations Medical Necessity Statement*: Patient requires hospitalization for continued management of right nephrolithiasis with associated mild hydronephrosis, pending nuclear stress testing due to noted abnormal ECG findings. Time Spent in Patient Care: Greater than 35 minutes (>than 50% of time spent in counselling and/or direct pt care on unit) . Coding Level of Care Code Acute Insurance Processing Clerk for [facility] Fwd Exam Comprehensive Diagnoses Nephrolithiasis N20.0 Hydronephrosis N13.30 Hydronephrosis type: unspecified Renal colic on right side N23 Abnormal finding on EKG R94.31 GERD (gastroesophageal reflux disease) K21.9 Esophagitis presence: without esophagitis Hypertension I10 Hypertension type: essential hypertension Hypothyroidism E03.9 Hypothyroidism type: unspecified Anxiety F41.9 Fibromyalgia M79.7 Morbid obesity E66.01
[2020-02-25] MEDS: aminophylline 25 mg/mL SDV 10 mL IVP (09:51)
--- NOTE | 2020-02-25 10:13 | PC.CHAP ---
Pastoral Care Encounter/Spiritual Assessment Type of Contact [] Declined breakfast cook visit [] Patient/Family/Request visit [] Outpatient visit [] Follow-up visit [] Physician referral [] Code/Alert [x] Routine visit [] Staff referral [] Actively dying [] Patient sleeping [] Family support [] [] Out of room [] Palliative care [] [] Receiving care in room [] Pre-surgical visit [] Trauma [] Long length of stay [] ICU visit [] Other: Relational/Emotional Strength [] Patient feels connected with others/family/visitors/staff [] Distress [] Loneliness/isolation [] Abandonment Spirituality of Patient [] Person of Adele [] Attends Zoroastrian of their Adele [] Believes in Prayer [] Reads Bible or Roman Catholic materials [] There are Spiritual issues to be addressed Cotton Ball Bagger Interventions [x] Prayer [] Active listening [] Non-anxious presence [] Spiritual/emotional support [] Crisis/trauma care [] Spiritual counseling [] Bereavement support [] Provided bereavement packet [] Provided Bible/devotional materials [] Provided toy/stuffed animal, coloring book to patient or family member [] Provided Communion [] Anointing/[place] [] Salvation [x] Completed spiritual assessment [] Other: Impact on Illness or Injury [] Angry [] Fearful [] Anxious [] Often cries [] Exhaustion [] Unable to work [] Unable to attend buddhism [] Unable to walk/stand [] Unable to read [] Unable to drive [] Unable to eat/drink [] Unable to sleep [] Unable to be with family [] Patient intubated [] Other: Summary Patient resting well. Time spent with patient 5 min
--- NOTE | 2020-02-25 10:14 | PC.CHAP ---
Pastoral Care Encounter/Spiritual Assessment Type of Contact [] Declined telephone supervisor visit [] Patient/Family/Request visit [] Outpatient visit [] Follow-up visit [] Physician referral [] Code/Alert [] Routine visit [] Staff referral [] Actively dying [] Patient sleeping [] Family support [] [] Out of room [] Palliative care [] [] Receiving care in room [] Pre-surgical visit [] Trauma [] Long length of stay [] ICU visit [] Other: Relational/Emotional Strength [] Patient feels connected with others/family/visitors/staff [] Distress [] Loneliness/isolation [] Abandonment Spirituality of Patient [] Person of Adele [] Attends Zoroastrian of their Adele [] Believes in Prayer [] Reads Bible or Cheondoism materials [] There are Spiritual issues to be addressed High Heel Builder Interventions [] Prayer [] Active listening [] Non-anxious presence [] Spiritual/emotional support [] Crisis/trauma care [] Spiritual counseling [] Bereavement support [] Provided bereavement packet [] Provided Bible/devotional materials [] Provided toy/stuffed animal, coloring book to patient or family member [] Provided Communion [] Anointing/[place] [] Salvation [] Completed spiritual assessment [] Other: Impact on Illness or Injury [] Angry [] Fearful [] Anxious [] Often cries [] Exhaustion [] Unable to work [] Unable to attend mormon [] Unable to walk/stand [] Unable to read [] Unable to drive [] Unable to eat/drink [] Unable to sleep [] Unable to be with family [] Patient intubated [] Other: Summary Time spent with patient
[2020-02-25] MEDS: FUROsemide 20 mg Tablet PO (11:36)
[2020-02-25] MEDS: aspirin 81 mg EC Tablet PO (11:37)
[2020-02-25] MEDS: duloxetine 60 mg Capsule PO ×2 (11:37→17:49)
[2020-02-25] MEDS: levothyroxine 100 mcg Tablet PO (11:37)
[2020-02-25] MEDS: sennosides-docusate Tablet 1 TAB PO (11:37)
[2020-02-25] MEDS: tamsulosin 0.4 mg Capsule PO (11:38)
[2020-02-25] MEDS: enoxaparin 120 mg/0.8 mL Syringe 110 MG SUBCUT (11:38)
[2020-02-25] MEDS: losartan 50 mg Tablet 100 MG PO (11:38)
[2020-02-25] MEDS: clopidogrel 75 mg Tablet PO (11:38)
[2020-02-25] MEDS: HYDROmorphone 1 mg/mL INJ 1 mL IVP ×2 (14:01→20:53)
[2020-02-25] MEDS: famotidine 20 mg Tablet PO (17:49)
[2020-02-25] MEDS: atorvastatin 40 mg Tablet 80 MG PO (20:53)
[2020-02-26] VITALS (19 sets, daily range): BP systolic 107–174; BP diastolic 56–80; PULSE 64–85; RESP 14–24; TEMP 36.5–36.8; O2SAT 90–99
--- NOTE | 2020-02-26 | SCC_ITS ---
Procedure Done: 1. Cystoscopy with right retrograde ureteropyelogram 2. Ureteroscopic laser lithotripsy and right ureteral stent placement 60.1 seconds of fluoroscopic guidance, for a cumulative dose of 30.44 mGy, was provided to Dr. Tran by the radiology department. C-arm images of the abdomen were saved for the patient's permanent record. [facility]
[2020-02-26 04:51] LABS: Basophils % 0.3 %; Eosinophils # 0.1 10^3/uL (0.0-0.8); Eosinophils % 1.4 %; Hematocrit 36.8 % (37.0-47.0); Hemoglobin 11.1 g/dL (11.5-15.3); Lymphocytes # 2.5 10^3/uL (0.8-4.8); Lymphocytes % 29.2 %; Mean Corpuscular HGB Conc 30.2 g/dL (30.0-36.0); Mean Corpuscular Hemoglobin 29.5 pg (28.0-34.0); Mean Corpuscular Volume 97.9 fL (81-99); Mean Platelet Volume 10.8 fL (7.4-10.4); Monocytes # 0.8 10^3/uL (0.2-0.9); Monocytes % 8.9 %; Neutrophils # 5.2 10^3/uL (1.8-7.7); Nucleated Red Blood Cells % 0 %; Platelet Count 305 10^3/cmm (130-400); Red Blood Count 3.76 10^6/uL (4.1-5.3); Red Cell Distribution Width 14.6 % (12.1-15.1); White Blood Count 8.6 10^3/uL (4.0-10.0)
[2020-02-26 05:12] LABS: Anion Gap 14.7 (5-19); Blood Urea Nitrogen 24 mg/dL (8-23); Calcium 8.9 mg/dL (8.5-10.5); Carbon Dioxide 26 mmol/L (22-29); Chloride 100 mmol/L (98-107); Glomerular Filtration Rate 63.4 mL/min (90-130); Glucose 122 mg/dL (65-115); Osmolality Calculated 282 mOsm/kg (285-295); Potassium 3.7 mmol/L (3.5-5.1); Sodium 137 mmol/L (136-145)
[2020-02-26 05:16] LABS: Estmated Average Glucose 166; Hemoglobin A1C 7.4 % (4.0-6.0)
[2020-02-26 05:22] LABS: Thyroid Stimulating Hormone 2.76 uIU/mL (0.27-4.20)
--- NOTE | 2020-02-26 08:03 | XR_ITS ---
WS: [id number] ABDOMEN 1 VIEW(S) HISTORY: Follow-up right proximal ureteral stone COMPARISON: 02/25/2020 Increased amount of air and fecal material throughout the colon with mild improvement since the prior study. 9 mm calcification persists just to the RIGHT of L3. This is probably within the RIGHT ureter. No bone abnormality. XR/XR KUB [id number] IMPRESSION: Mid RIGHT ureteral 9 mm calcification unchanged.
--- NOTE | 2020-02-26 08:08 | P.PN_ITS ---
Subjective Subjective: Interval history: Still having some intermittent right flank pain. No fever or chills. Doing well from a cardiac perspective. She still desires to have the stone treated while she is here due to severity of her previous symptoms. I spoke with Dr. Mckenna last night who had reviewed her work-up for her heart and spoken directly to Dr. Blas who felt that her cardiac risk was acceptable to proceed with treatment of the stone. We will plan on a KUB today to confirm location of the stone and then add her onto today schedule when time available. Plan will be to perform: Cystoscopy, right retrograde ureteroscopy laser stent. If the stone is inaccessible then place a stent for passive dilation and relief of obstruction with delayed reattempt. All the above was explained in detail to the patient. She expressed good understanding. She has given informed consent to proceed. Medications: Reviewed: Yes Medication Review Details: Hold Plavix this a.m. Vitals/I&O/Wt Last Vital Signs Temp 978 F H 02/26/20 06:54 Pulse 83 02/26/20 06:54 Resp 14 02/26/20 06:54 BP 150/76 02/26/20 06:54 Pulse Ox 95 02/26/20 06:54 02/25/20 02/26/20 02/26/20 22:59 06:59 14:59 Intake Total 240 / 360 240 / 600 Balance 240 / 360 240 / 600 Weight last 48 hrs Weight 240 lb Physical Exam Const: COMMON NORMALS: no acute distress, alert and well nourished GENERAL APPEARANCE: well kempt and well developed ORIENTATION/CONSCIOUSNESS: not confused HENMT: COMMON NORMALS: normocephalic and atraumatic HEAD & SCALP: normocephalic and atraumatic Neck/C-Spine: GENERAL: Yes normal visual inspection Resp: COMMON NORMALS: normal respiratory effort EFFORT & INSPECTION: No labored and No Actively coughing Neuro: SENSORIUM/ORIENTATION: Yes alert Psych: COMMON NORMALS: mental status grossly normal APPEARANCE: Yes grossly normal and Yes well kempt ATTITUDE: Yes calm and Yes engaged Data : 02/26/20 04:20 02/26/20 04:20 A&P Assessment and plan (1) Right ureteral calculus: Approximately 9 mm right proximal ureteral stone with obstructive changes and severe symptomatology presentation. Pain being well managed now currently. Since yesterday her cardiac evaluation has led to the conclusion that she is reasonably a good candidate for intervention. We will plan on endoscopic approach today. Primary goal is drainage but if the stone is easily accessible in her clinical status is good in the operating room we will proceed with laser lithotripsy. Status: Acute (2) Renal colic on right side: Secondary to 9 mm proximal right ureteral stone. Ongoing Status: Acute (3) Hydronephrosis: Secondary to 9 mm proximal right ureteral stone Status: Acute Qualifiers: Hydronephrosis type: with ureteral calculous obstruction Qualified Code(s): N13.2 - Hydronephrosis with renal and ureteral calculous obstruction (4) Nephrolithiasis: Small bilateral nonobstructing stones. Identified on CT scan during evaluation of right renal colicky symptoms. Status: Acute Attestations Medical Necessity Statement*: See attending Coding Level of Care Code Acute Client Support Administrator for [facility] Fwd Diagnoses Right ureteral calculus N20.1 Renal colic on right side N23 Hydronephrosis N13.2 Hydronephrosis type: with ureteral calculous obstruction Nephrolithiasis N20.0
--- NOTE | 2020-02-26 08:25 | P.PN_ITS ---
Subjective Subjective: Interval history: Afebrile, hemodynamically stable, slight increase in BUN, Cr remains wnl, stable Hg, no leukocytosis. Patient resting quietly in bed, no apparent distress, reports continued right flank pain though less so compared to yesterday, denies difficulty with urination. Pending stent placement and lithotripsy scheduled for this afternoon by Dr. Tran. Medications: Reviewed: Yes Medication Review Details: Active Medications Generic Name Dose Route Start Last Admin Trade Name Freq PRN Reason Stop Dose Admin Aspirin 81 mg 02/25/20 09:00 02/25/20 11:37 Aspirin Ec PO 81 mg DAILY GABRIEL Administration Atenolol 50 mg 02/25/20 09:00 Tenormin PO DAILY GABRIEL Atorvastatin Calci um 80 mg 02/24/20 22:18 02/25/20 20:53 Lipitor PO 80 mg BEDTIME GABRIEL Administration Clopidogrel Bisulf ate 75 mg 02/25/20 09:00 02/25/20 11:38 Plavix PO 75 mg DAILY GABRIEL Administration Duloxetine HCl 60 mg 02/25/20 09:00 02/25/20 17:49 Cymbalta PO 60 mg BID GABRIEL Administration Enoxaparin Sodium 110 mg 02/25/20 08:00 02/25/20 11:38 Lovenox SUBCUT 110 mg Q12H GABRIEL Administration Famotidine 20 mg 02/25/20 18:00 02/25/20 17:49 Pepcid Tab PO 20 mg BID GABRIEL Administration Furosemide 20 mg 02/25/20 08:00 02/25/20 11:36 Lasix PO 20 mg DAILY@0800 GABRIEL Administration Hydromorphone HCl 1 mg 02/25/20 19:18 02/25/20 20:53 Dilaudid Inj IVP 1 mg Q2H PRN Administration PAIN Isosorbide Mononit rate 30 mg 02/26/20 09:00 Imdur PO DAILY GABRIEL Levothyroxine Sodi um 100 mcg 02/25/20 09:00 02/25/20 11:37 Synthroid PO 100 mcg DAILY GABRIEL Administration Losartan Potassium 100 mg 02/25/20 09:00 02/25/20 11:38 Cozaar PO 100 mg DAILY GABRIEL Administration Ondansetron HCl 4 mg 02/25/20 07:02 Zofran IVP Q2M PRN NAUSEA Senna/Docusate Sod ium 1 tab 02/25/20 09:00 02/25/20 11:37 Senna-S PO 1 tab DAILY GABRIEL Administration Tamsulosin HCl 0.4 mg 02/25/20 09:00 02/25/20 11:38 Flomax PO 0.4 mg DAILY GABRIEL Administration No Known Allergies Allergy (Verified 02/24/20 17:55) Vitals/I&O/Wt Last Vital Signs Temp 978 F H 02/26/20 06:54 Pulse 83 02/26/20 06:54 Resp 14 02/26/20 06:54 BP 150/76 02/26/20 06:54 Pulse Ox 95 02/26/20 06:54 02/25/20 02/26/20 02/26/20 22:59 06:59 14:59 Intake Total 240 / 360 240 / 600 Balance 240 / 360 240 / 600 Weight last 48 hrs Weight 108.862 kg Physical Exam Const: COMMON NORMALS: no acute distress, patient oriented x3 and alert GENERAL APPEARANCE: cooperative and comfortable NUTRITIONAL APPEARANCE: obese morbidly obese ORIENTATION/CONSCIOUSNESS: Yes awake HENMT: COMMON NORMALS: normocephalic, atraumatic, hearing grossly normal bilaterally and moist oral mucous membranes HEAD & SCALP: normocephalic and atraumatic Eye: COMMON NORMALS: Equal, round and reactive pupils present, EOMs intact bilaterally and conjunctivae normal CONJUNCTIVA: Yes conjunctivae normal PUPIL: Yes Equal, round and reactive pupils present Neck/C-Spine: COMMON NORMALS: full ROM GENERAL: Yes normal visual inspecti on and Yes trachea midline Chest: CHEST: Yes Symmetrical chest wall rise Resp: COMMON NORMALS: normal respiratory effort, No retractions, No use of accessory muscles and clear to auscultation bilaterally EFFORT & INSPECTION: Yes able to speak in complete sentences, Yes symmetric chest movement and No tachypneic AUSCULTATION: clear to auscultation bilaterally OTHER: -on CPAP Cardio: COMMON NORMALS: regular rate, regular rhythm, S1 normal heart sound present, S2 normal heart sound present and No murmurs present (Cardio) RATE: regular rate RHYTHM: regular rhythm HEART SOUNDS: S1 normal heart sound present and S2 normal heart sound present GI: COMMON NORMALS: Normal to inspection, nondistended, normoactive bowel sounds present, Soft to palpation and non-tender INSPECTION: Yes central obesity PALPATION: Yes Soft to palpation : BLADDER/KIDNEY EXAM: Yes CVA tenderness on the right and localized Back/Pelvis: GENERAL BACK: Yes CVA tenderness CVA tenderness: right Extremity: COMMON NORMALS: normal to inspection, full ROM, no clubbing, c yanosis or edema and no pedal edema Neuro: COMMON NORMALS: patient oriented x3, moves all extremities, no focal motor deficits, no sensory deficits noted and gait normal SENSORIUM/ORIENTATION: Yes alert Psych: COMMON NORMALS: mental status grossly normal, Normal thought process present, cooperative, normal affect and speech normal SPEECH: Yes normal speech THOUGHT PROCESS: Normal thought process present Skin: COMMON NORMALS: no rashes or lesions noted, no jaundice, no petechiae and no mottling GENERAL SKIN EXAM: no rashes or lesions noted Data : 02/26/20 04:20 02/26/20 04:20 A&P Assessment and plan (1) Nephrolithiasis: -noted to have R 8 x 7 x 6 mm calculus with mild hydronephrosis -Urology consult by Dr. Tran appreciated; scheduled for lithotripsy and right ureteral stent placement this afternoon -pain control, IVF hydration, strain urine -UA with noted hematuria, bacteria, hyaline casts -renal function wnl with slight increase in BUN today (19->24), continue to monitor -continue to monitor urine output; has been voiding independently -flomax Status: Acute (2) Hydronephrosis: -as noted above Status: Acute Qualifiers: Hydronephrosis type: with ureteral calculous obstruction Qualified Code(s): N13.2 - Hydronephrosis with renal and ureteral calculous obstruction (3) Renal colic on right side: -as noted above Status: Acute (4) Abnormal finding on EKG: -Noted to have ST depression on EKG -Troponins noted, delta not calculated -Telemetry monitoring -Echo limited study but no noted gross wall motion abnormalities, G1DD -Nuclear stress testing today with noted small area of old [place] surrounded by moderate area of medium sized neel-infarct ischemia noted in leads to distal anterior wall suggestive of possible lesion in the LAD territory, TID ratio is elevated. Will likely need further evaluation with cardiac catheterization. Results discussed with Dr. Blas. -on aspirin, statin, Plavix, beta-kassy. We will hold anticoagulation for planned procedure today. Given non-invasive nature of procedure, do not anticipate higher than average risk for complications -BP better controlled today, continue to monitor vital signs Status: Acute (5) GERD (gastroesophageal reflux disease): -on famotidine Status: Chronic Qualifiers: Esophagitis presence: without esophagitis Qualified Code(s): K21.9 - Gastro-esophageal reflux disease without esophagitis (6) Hypertension: -Presented with hypertensive urgency, remains hypertensive -Continue to monitor vital signs -Continue losartan, Lasix; resume atenolol after stress test Status: Chronic Qualifiers: Hypertension type: essential hypertension Qualified Code(s): I10 - Essential (primary) hypertension (7) Hypothyroidism: -check TSH -continue levothyroxine Status: Chronic Qualifiers: Hypothyroidism type: unspecified Qualified Code(s): E03.9 - Hypothyroidism, unspecified (8) Anxiety: Status: Chronic (9) Fibromyalgia: -on Cymbalta Status: Chronic (10) Morbid obesity: -BMI-47 kg/m2 -Planning on gastric bypass surgery Status: Chronic Additional A&P Information -noted hyperglycemia, no dx of DM, check A1c -GI ppx with famotidine -DVT ppx not needed as on therapeutic lovenox -Dispo: home -Code status: FULL code Attestations Medical Necessity Statement*: Patient requires hospitalization for continued management of right nephrolithiasis with hydronephrosis pending surgical intervention. Time Spent in Patient Care: 16 - 35 minutes (>than 50% of time spent in counselling and/or direct pt care on unit) . 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
[2020-02-26] MEDS: sennosides-docusate Tablet 1 TAB PO (08:59)
[2020-02-26] MEDS: atenolol 50 mg Tablet PO (08:59)
[2020-02-26] MEDS: duloxetine 60 mg Capsule PO ×2 (08:59→19:28)
[2020-02-26] MEDS: FUROsemide 20 mg Tablet PO (08:59)
[2020-02-26] MEDS: isosorbide mononitrate ER 30 mg Tablet PO (08:59)
--- NOTE | 2020-02-26 08:59 | PC.NURSE ---
dr bernal rounded on pt. decided to proceed with procedure this afternoon. dr bahena notified of the plan. instructed to hold morning aspirin and plavix until after procedure.
[2020-02-26] MEDS: famotidine 20 mg Tablet PO ×2 (09:00→19:28)
[2020-02-26] MEDS: losartan 50 mg Tablet 100 MG PO (09:00)
[2020-02-26] MEDS: levothyroxine 100 mcg Tablet PO (09:00)
[2020-02-26] MEDS: tamsulosin 0.4 mg Capsule PO (09:00)
[2020-02-26] MEDS: HYDROmorphone 1 mg/mL INJ 1 mL IVP ×2 (09:50→19:53)
--- NOTE | 2020-02-26 14:16 | SC_ITS ---
WS: [id number] C-ARM RADIOGRAPHS ABDOMEN; 6 IMAGES HISTORY: STENT PLACEMENT COMPARISON: None available. Retrograde imaging of the RIGHT ureter with intraoperative RIGHT ureteral stent placement. NV/C-arm FL for Urology IMPRESSION: Retrograde RIGHT ureteral imaging and RIGHT ureteral stent placement.
--- NOTE | 2020-02-26 15:06 | ANES.PREANE2 ---
Pre-Anesthetic Assessment Pre-Anesthetic Assessment: Height/Weight: Height 1.52 m Weight 108.862 kg Temp Pulse Resp BP Pulse Ox 98.3 F 85 15 123/70 90 02/26/20 10:35 02/26/20 10:35 02/26/20 10:35 02/26/20 10:35 02/26/20 10:35 Preop Diagnosis: Right proximal ureteral stone Proposed Procedure: Operation Date: 02/26/20 15:50 Proposed Procedures p Cystoscopy(Not Applicable) - Sumeet Tran MD s Laser Lithotripsy(Right) - Sumeet Tran MD s Ureteral Stent Placement(Right) - Sumeet Tran MD s Flexible Ureteroscopy(Not Applicable) - Sumeet Tran MD Social: Social History: No alcohol and No tobacco Exam: Pre-Anes Outpt Exam: alert, oriented x 3, clear to auscultation bilaterally and regular rate & rhythm Airway: Submandibular: WNL Cervical ROM: WNL MP: 1 Dentition: Other (teeth ok) History/ROS: No significant history except as noted Pulmonary: Pulmonary: BERGERON and Sleep apnea CV/HEM: CV/HEM: HTN and [place] Comments: stress test neg : Comments: kidney stones Hepatic: Hepatic: None reported GI: GI: GERD (not well controlled) Metabolic: Metabolic: Morbid obesity and Thyroid Musc/skel: Musc/skel: Lower Back Pain and OA/DJD Neuropsych: Neuropsych: Anxiety and Depression Anesthetic Plan: ASA status: 3 Anesthesia: Anesthesia Evaluation and General Risk of > 500 ml blood loss (7ml/kg in children): No Meds/Allergies Current Medications: Current Medications Generic Name Dose Route Start Last Admin Trade Name Freq PRN Reason Stop Dose Admin Aspirin 81 mg 02/25/20 09:00 02/25/20 11:37 Aspirin Ec PO 81 mg DAILY GABRIEL Administration Atenolol 50 mg 02/25/20 09:00 02/26/20 08:59 Tenormin PO 50 mg DAILY GABRIEL Administration Atorvastatin Calci um 80 mg 02/24/20 22:18 02/25/20 20:53 Lipitor PO 80 mg BEDTIME GABRIEL Administration Clopidogrel Bisulf ate 75 mg 02/25/20 09:00 02/25/20 11:38 Plavix PO 75 mg DAILY GABRIEL Administration Duloxetine HCl 60 mg 02/25/20 09:00 02/26/20 08:59 Cymbalta PO 60 mg BID GABRIEL Administration Enoxaparin Sodium 110 mg 02/25/20 08:00 02/25/20 11:38 Lovenox SUBCUT 110 mg Q12H GABRIEL Administration Famotidine 20 mg 02/25/20 18:00 02/26/20 09:00 Pepcid Tab PO 20 mg BID GABRIEL Administration Furosemide 20 mg 02/25/20 08:00 02/26/20 08:59 Lasix PO 20 mg DAILY@0800 GABRIEL Administration Hydromorphone HCl 1 mg 02/25/20 19:18 02/26/20 09:50 Dilaudid Inj IVP 1 mg Q2H PRN Administration PAIN Isosorbide Mononit rate 30 mg 02/26/20 09:00 02/26/20 08:59 Imdur PO 30 mg DAILY GABRIEL Administration Levothyroxine Sodi um 100 mcg 02/25/20 09:00 02/26/20 09:00 Synthroid PO 100 mcg DAILY GABRIEL Administration Losartan Potassium 100 mg 02/25/20 09:00 02/26/20 09:00 Cozaar PO 100 mg DAILY [facility] Administration Senna/Docusate Sod ium 1 tab 02/25/20 09:00 02/26/20 08:59 Senna-S PO 1 tab DAILY [facility] Administration Tamsulosin HCl 0.4 mg 02/25/20 09:00 02/26/20 09:00 Flomax PO 0.4 mg DAILY GABRIEL Administration Additional Medication Information: Active Medications Generic Name Dose Route Start Last Admin Trade Name Freq PRN Reason Stop Dose Admin Aspirin 81 mg 02/25/20 09:00 02/25/20 11:37 Aspirin Ec PO 81 mg DAILY [facility] Administration Atenolol 50 mg 02/25/20 09:00 Tenormin PO DAILY [facility] Atorvastatin Calci um 80 mg 02/24/20 22:18 02/25/20 20:53 Lipitor PO 80 mg BEDTIME GABRIEL Administration Clopidogrel Bisulf ate 75 mg 02/25/20 09:00 02/25/20 11:38 Plavix PO 75 mg DAILY GABRIEL Administration Duloxetine HCl 60 mg 02/25/20 09:00 02/25/20 17:49 Cymbalta PO 60 mg BID GABRIEL Administration Enoxaparin Sodium 110 mg 02/25/20 08:00 02/25/20 11:38 Lovenox SUBCUT 110 mg Q12H GABRIEL Administration Famotidine 20 mg 02/25/20 18:00 02/25/20 17:49 Pepcid Tab PO 20 mg BID GABRIEL Administration Furosemide 20 mg 02/25/20 08:00 02/25/20 11:36 Lasix PO 20 mg DAILY@0800 GABRIEL Administration Hydromorphone HCl 1 mg 02/25/20 19:18 02/25/20 20:53 Dilaudid Inj IVP 1 mg Q2H PRN Administration PAIN Isosorbide Mononit rate 30 mg 02/26/20 09:00 Imdur PO DAILY GABRIEL Levothyroxine Sodi um 100 mcg 02/25/20 09:00 02/25/20 11:37 Synthroid PO 100 mcg DAILY GABRIEL Administration Losartan Potassium 100 mg 02/25/20 09:00 02/25/20 11:38 Cozaar PO 100 mg DAILY GABRIEL Administration Ondansetron HCl 4 mg 02/25/20 07:02 Zofran IVP Q2M PRN NAUSEA Senna/Docusate Sod ium 1 tab 02/25/20 09:00 02/25/20 11:37 Senna-S PO 1 tab DAILY GABRIEL Administration Tamsulosin HCl 0.4 mg 02/25/20 09:00 02/25/20 11:38 Flomax PO 0.4 mg DAILY GABRIEL Administration No Known Allergies Allergy (Verified 02/24/20 17:55) PFSH Anesthesia PFSH: Medical History Anxiety Fibromyalgia Hypertension Hypothyroidism Right ureteral calculus Surgical History H/O: hysterectomy Family History Grandfather Family history of premature coronary artery disease Grandfather of [place] at age 50 Social History Smoking and tobacco status: never smoked Alcohol intake: never Substance/Drug Use: never Household members: family Housing: House Data Anesthesia CBC & Chem 7: 02/26/20 04:20 02/26/20 04:20 Other Labs: Laboratory Results - last 48 hr 02/24/20 02/24/20 02/24/20 18:08 18:08 18:08 WBC 9.0 RBC 4.43 Hgb 13.1 Hct 43.6 MCV 98.4 MCH 29.6 MCHC 30.0 RDW 14.6 Plt Count 344 MPV 10.4 Neut % (Auto) 69.9 Lymph % (Auto) 19.7 White % (Auto) 8.8 Eos % (Auto) 1.1 Baso % (Auto) 0.3 Neut # (Auto) 6.3 Lymph # (Auto) 1.8 White # (Auto) 0.8 Eos # (Auto) 0.1 Baso # (Auto) 0.0 Nucleated RBC % (auto) 0 Nucleated RBCs # 0.0 Sodium 141 Potassium 3.9 Chloride 102 Carbon Dioxide 25 Anion Gap 17.9 BUN 13 Creatinine 0.7 GFR Calculation 84.8 L Glucose 120 H Estimat Average Glucose Hemoglobin A1c Calculated Osmolality 289 Lactate 2.3 H Calcium 9.3 Total Bilirubin 0.5 AST 24 ALT 27 Alkaline Phosphatase 73 Troponin I 6 Hour Troponin I Hi Sens Del Troponin T Gen 5 ng/L Troponin T 120 Minute Delta Troponin T Total Protein 7.2 Albumin 4.1 Globulin 3.1 Lipase 19 TSH Urine Color Urine Appearance Urine pH Ur Specific [place] Urine Protein Urine Glucose (UA) Urine Ketones Urine Blood Urine Nitrate Urine Bilirubin Urine Urobilinogen Ur Leukocyte Esterase Urine RBC Urine WBC Ur Squamous Epith Cells Ur Transition Epith Cell Urine Bacteria Hyaline Casts Urine Mucus 02/24/20 02/24/20 02/24/20 18:08 18:17 21:16 WBC RBC Hgb Hct MCV MCH MCHC RDW Plt Count MPV Neut % (Auto) Lymph % (Auto) White % (Auto) Eos % (Auto) Baso % (Auto) Neut # (Auto) Lymph # (Auto) White # (Auto) Eos # (Auto) Baso # (Auto) Nucleated RBC % (auto) Nucleated RBCs # Sodium Potassium Chloride Carbon Dioxide Anion Gap BUN Creatinine GFR Calculation Glucose Estimat Average Glucose Hemoglobin A1c Calculated Osmolality Lactate Calcium Total Bilirubin AST ALT Alkaline Phosphatase Troponin I 6 Hour Troponin I Hi Sens Del Troponin T Gen 5 ng/L 102 H* Troponin T 120 Minute 85.73 H Delta Troponin T TNP Total Protein Albumin Globulin Lipase TSH Urine Color Brown Urine Appearance Cloudy Urine pH 5 Ur Specific [place] 1.025 Urine Protein Trace Urine Glucose (UA) Norm Urine Ketones Negative Urine Blood 3+ H Urine Nitrate Negative Urine Bilirubin 1+ H Urine Urobilinogen Norm Ur Leukocyte Esterase Negative Urine RBC Too numerous to cnt H Urine WBC 0-4 H Ur Squamous Epith Cells 0-4 H Ur Transition Epith Cell 0-4 Urine Bacteria 3+ H Hyaline Casts 10-15 H Urine Mucus 4+ 02/25/20 02/25/20 02/25/20 01:29 04:40 04:40 WBC 10.1 H RBC 4.45 Hgb 13.2 Hct 44.9 MCV 100.9 H MCH 29.7 MCHC 29.4 L RDW 14.6 Plt Count 340 MPV 10.5 H Neut % (Auto) 76.8 Lymph % (Auto) 15.5 White % (Auto) 7.2 Eos % (Auto) 0.0 Baso % (Auto) 0.3 Neut # (Auto) 7.8 H Lymph # (Auto) 1.6 White # (Auto) 0.7 Eos # (Auto) 0.0 Baso # (Auto) 0.0 Nucleated RBC % (auto) 0 Nucleated RBCs # 0.0 Sodium 140 Potassium 5.3 H Chloride 101 Carbon Dioxide 27 Anion Gap 17.3 BUN 19 Creatinine 0.7 GFR Calculation 84.8 L Glucose 147 H Estimat Average Glucose Hemoglobin A1c Calculated Osmolality 289 Lactate Calcium 9.1 Total Bilirubin AST ALT Alkaline Phosphatase Troponin I 6 Hour 74.90 H Troponin I Hi Sens Del TNP Troponin T Gen 5 ng/L Troponin T 120 Minute Delta Troponin T Total Protein Albumin Globulin Lipase TSH Urine Color Urine Appearance Urine pH Ur Specific [place] Urine Protein Urine Glucose (UA) Urine Ketones Urine Blood Urine Nitrate Urine Bilirubin Urine Urobilinogen Ur Leukocyte Esterase Urine RBC Urine WBC Ur Squamous Epith Cells Ur Transition Epith Cell Urine Bacteria Hyaline Casts Urine Mucus 02/26/20 02/26/20 02/26/20 04:20 04:20 04:20 WBC 8.6 RBC 3.76 L Hgb 11.1 L Hct 36.8 L MCV 97.9 MCH 29.5 MCHC 30.2 RDW 14.6 Plt Count 305 MPV 10.8 H Neut % (Auto) 60.0 Lymph % (Auto) 29.2 White % (Auto) 8.9 Eos % (Auto) 1.4 Baso % (Auto) 0.3 Neut # (Auto) 5.2 Lymph # (Auto) 2.5 White # (Auto) 0.8 Eos # (Auto) 0.1 Baso # (Auto) 0.0 Nucleated RBC % (auto) 0 Nucleated RBCs # 0.0 Sodium 137 Potassium 3.7 Chloride 100 Carbon Dioxide 26 Anion Gap 14.7 BUN 24 H Creatinine 0.9 GFR Calculation 63.4 L Glucose 122 H Estimat Average Glucose Hemoglobin A1c Calculated Osmolality 282 L Lactate Calcium 8.9 Total Bilirubin AST ALT Alkaline Phosphatase Troponin I 6 Hour Troponin I Hi Sens Del Troponin T Gen 5 ng/L Troponin T 120 Minute Delta Troponin T Total Protein Albumin Globulin Lipase TSH 2.76 Urine Color Urine Appearance Urine pH Ur Specific [place] Urine Protein Urine Glucose (UA) Urine Ketones Urine Blood Urine Nitrate Urine Bilirubin Urine Urobilinogen Ur Leukocyte Esterase Urine RBC Urine WBC Ur Squamous Epith Cells Ur Transition Epith Cell Urine Bacteria Hyaline Casts Urine Mucus 02/26/20 04:20 WBC RBC Hgb Hct MCV MCH MCHC RDW Plt Count MPV Neut % (Auto) Lymph % (Auto) White % (Auto) Eos % (Auto) Baso % (Auto) Neut # (Auto) Lymph # (Auto) White # (Auto) Eos # (Auto) Baso # (Auto) Nucleated RBC % (auto) Nucleated RBCs # Sodium Potassium Chloride Carbon Dioxide Anion Gap BUN Creatinine GFR Calculation Glucose Estimat Average Glucose 166 Hemoglobin A1c 7.4 H Calculated Osmolality Lactate Calcium Total Bilirubin AST ALT Alkaline Phosphatase Troponin I 6 Hour Troponin I Hi Sens Del Troponin T Gen 5 ng/L Troponin T 120 Minute Delta Troponin T Total Protein Albumin Globulin Lipase TSH Urine Color Urine Appearance Urine pH Ur Specific [place] Urine Protein Urine Glucose (UA) Urine Ketones Urine Blood Urine Nitrate Urine Bilirubin Urine Urobilinogen Ur Leukocyte Esterase Urine RBC Urine WBC Ur Squamous Epith Cells Ur Transition Epith Cell Urine Bacteria Hyaline Casts Urine Mucus Micro: Microbiology 02/24/20 18:17 Urine Culture - Preliminary Urine,Clean Catch Cardiac Studies: No Data to Display
--- NOTE | 2020-02-26 15:30 | PC.NURSE ---
pt taken to surgery for her procedure via wheelchair.
--- NOTE | 2020-02-26 16:38 | P.OP_ITS ---
Operative Report Date of procedure: February 26, 2020 Pre-op Diagnosis: Right proximal ureteral stone approximately 9 mm in size Post-op diagnosis: same Procedure Done: 1. Cystoscopy with right retrograde ureteropyelogram 2. Ureteroscopic laser lithotripsy and right ureteral stent placement Specimens removed/disposition: Stone fragments Pathology: Stone fragments Surgeon: Marc Anesthesia: General Estimated blood loss: Minimal Urine output: Not measured Complications: None Findings: Stone in the expected position. Treated with laser lithotripsy. Stent left indwelling. Condition: stable Disposition: PACU Brief History: Mrs. Simpson is a very pleasant 64-year-old white female who I have met for the first time during this hospital stay where she was admitted for severe right renal colicky symptoms and found to have a large right proximal ureteral stone with obstruction. This was further complicated by concern related to her heart with elevated troponins and ST-T wave changes. Her cardiac work-up showed no acute issues requiring intervention. Serial x-rays showed no evidence of progress of the stone. When given options for treatment now or delayed after further cardiac assessment she elected to proceed with intervention to treat the condition resulting in the severe pain that brought her in in the first place. We elected endoscopy given her anticoagulation prescribed for her cardiac status. Procedure: After urgent preoperative evaluation examination and obtaining of informed consent she was taken to the operating suite on 02/26/2020 where general anesthesia was administered without difficulty after appropriate timeout was performed, SCDs confirmed to be functioning, preoperative antibiotics administered, beta-kassy protocol confirmed. Prepped and draped in usual sterile fashion in dorsolithotomy position pain careful attention to avoiding pressure points. 21 Nigerian cystoscope with 30 degree lens was introduced into the urethral meatus and advanced into the bladder under videoscopy bladder was systematically examined and found to be within normal limits. No stone was seen. An 8 Nigerian cone-tipped catheter was intubated into the right ureteral orifice where a RIGHT RETROGRADE URETEROPYELOGRAM was performed: The ureter from the ureteral orifice up to the stone that appeared as a filling defect appeared normal. Normal course and count. The stone was in its expected position. The ureter proximal to the stone showed hydronephrotic changes. A flexible tip guidewire was then advanced up the right ureter bypassing the stone and curling in the area of the upper pole calyx. The distal ureter was then dilated with a 15 Nigerian 4 cm balloon and the wire was secured to the drapes as a safety wire. The offset semirigid ureteroscope was advanced next to the guidewire up the right ureter to the level of the stone. Utilizing a 365 ?m homing laser fiber the stone was fragmented into small enough pieces that were felt to be easily withdrawal. Because there were many of them it was decided to pass ureteral access sheath and therefore a second guidewire was passed. A 38 cm ureteral access sheath was attempted to be passed but could not be easily passed beyond the mid ureter due to the generalized narrowing of the ureter. The guidewire and the sheath were removed and the ureteroscope was then passed up into the proximal ureter where the pieces were removed sequentially with combination grasping forceps and parachute basket. Eventually all the fragments were removed. Final inspection showed no significant trauma to the ureter but it was decided because of multiple passage of the scope to leave a stent indwelling for avoidance of obstructive swelling. The safety wire was then utilized for stent placement. The cystoscope was then backloaded over the guidewire and a 7 Nigerian by 24 cm double-pigtail stent was advanced over the guidewire through the cystoscope into appropriate position as confirmed via fluoroscopy and cystoscopy. Several fragments were washed free from the bladder. The stent was confirmed to be functioning well and the procedure completed. Bladder was drained. Tolerated the procedure well without complications and was awakened in the operating room and returned to the recovery room in stable condition. PLANS: 1. Maintain right ureteral stent with plans tentatively for removal in my office after a KUB next week. 2. When deemed safe for discharge from the hospitalist perspective she should be fine from a urologic perspective to go home.
[2020-02-26] MEDS: levofloxacin-dextrose 5 % 500 MG/100 ML PREMIX 100 MG IV (16:53)
[2020-02-26] MEDS: iohexol 300 mg/mL 50 mL Btl (OR ONLY) XX (17:15)
--- NOTE | 2020-02-26 18:30 | PC.NURSE ---
pt back from procedure via stretcher. pt transferred self from stretcher to bed. hooked up to monitor, vital signs stable. pt then wanted to get up to bedside commode. assisted to commode, pt a little wobbly during transfer. pt voided and returned to bed, bed alarm set and pt instructed to use call light if she needed anything and reinforced not getting up without assistance.
[2020-02-26] MEDS: aspirin 81 mg EC Tablet PO (19:28)
[2020-02-26] MEDS: cetylpyridinium Lozenge 1 EACH MUCOUS MEM (19:28)
[2020-02-26] MEDS: sodium chloride 0.9% 1,000 ML 100 ML IV (19:28)
[2020-02-26] MEDS: enoxaparin 40 mg/0.4 mL Syringe SUBCUT (19:28)
[2020-02-26] MEDS: clopidogrel 75 mg Tablet PO (19:28)
--- NOTE | 2020-02-26 19:28 | PC.NURSE ---
aspirin, plavix, cymbalta, pepcid, and lovenox given after patients arrival back to floor from her procedure.
--- NOTE | 2020-02-26 19:28 | PC.NURSE ---
Patient complaint of nausea post op. Orders on NOV for Nausea medication are for PACU and PRE OP use. Orders received for Zofran 4mg every 4 hours PRN. Will continue to monitor.
[2020-02-26] MEDS: ondansetron 2 mg/ML SDV 2 mL 4 MG IVP (19:52)
[2020-02-26] MEDS: atorvastatin 40 mg Tablet 80 MG PO (20:46)
[2020-02-26] MEDS: phenazopyridine 100 mg Tablet 200 MG PO (20:46)
--- NOTE | 2020-02-26 20:52 | PC.NURSE ---
Patient given pyridrim for complaint of burning when urinating post op. Will continue to monitor.
[2020-02-26 21:29] LABS: Glucose Point of Care 129 mg/dL (70-110)
[2020-02-27] VITALS (7 sets, daily range): BP systolic 120–161; BP diastolic 43–73; PULSE 76–84; RESP 16–20; TEMP 36.6; O2SAT 94–100
[2020-02-27] MEDS: HYDROmorphone 1 mg/mL INJ 1 mL IVP (00:57)
[2020-02-27] MEDS: sodium chloride 0.9% 1,000 ML 100 ML IV (00:58)
--- NOTE | 2020-02-27 01:08 | PC.NURSE ---
Patient has been able to eat two containers of jello with no nausea. Patient stated she hasn't passed gas. Patient has bowel sounds. Patient is ambulating to the BSC with nurses standing by. Patient encouraged to ambulate in the terry when she feels ready post op. Patient voiced understanding.
--- NOTE | 2020-02-27 05:28 | PC.NURSE ---
End of Shift: Patient has ambulated to the BSC and to the Toilet with a nurse standing by. Patient has not passed gas but good bowel sounds. Encouraged patient to ambulate in the terry. Patient remains Alert and oriented, vitals are stable. Call light is within reach and bed in low position.
[2020-02-27 05:44] LABS: Basophils % 0.2 %; Eosinophils # 0.1 10^3/uL (0.0-0.8); Eosinophils % 0.8 %; Hematocrit 38.8 % (37.0-47.0); Hemoglobin 11.3 g/dL (11.5-15.3); Lymphocytes % 22.6 %; Mean Corpuscular HGB Conc 29.1 g/dL (30.0-36.0); Mean Corpuscular Hemoglobin 29.4 pg (28.0-34.0); Mean Platelet Volume 10.7 fL (7.4-10.4); Monocytes # 0.8 10^3/uL (0.2-0.9); Monocytes % 9.1 %; Neutrophils # 5.8 10^3/uL (1.8-7.7); Neutrophils % 67.1 %; Nucleated Red Blood Cells % 0 %; Platelet Count 280 10^3/cmm (130-400); Red Blood Count 3.84 10^6/uL (4.1-5.3); Red Cell Distribution Width 14.5 % (12.1-15.1); White Blood Count 8.6 10^3/uL (4.0-10.0)
[2020-02-27 06:10] LABS: Anion Gap 12.1 (5-19); Blood Urea Nitrogen 16 mg/dL (8-23); Calcium 8.8 mg/dL (8.5-10.5); Carbon Dioxide 27 mmol/L (22-29); Chloride 103 mmol/L (98-107); Glomerular Filtration Rate 84.8 mL/min (90-130); Glucose 134 mg/dL (65-115); Osmolality Calculated 284 mOsm/kg (285-295); Potassium 4.1 mmol/L (3.5-5.1); Sodium 138 mmol/L (136-145)
--- NOTE | 2020-02-27 08:52 | P.PN_ITS ---
Subjective Subjective: Interval history: Postoperative day #1 right ureteroscopic laser lithotripsy with stent. Doing well. Decreased pain in the right flank following relief of obstruction with stone treatment and stenting. Voiding well. Denies any chest pain this morning. No shortness of breath fever chills etc. From a urologic perspective I think she is doing well enough to be discharged. Hospitalist follow-up is pending. I will plan on seeing her back late next week with a KUB and if everything looks good remove the stent at that time. Medications: Reviewed: Yes Vitals/I&O/Wt Last Vital Signs Temp 97.8 F 02/27/20 04:34 Pulse 80 02/27/20 08:52 Resp 16 02/27/20 04:34 BP 161/73 02/27/20 04:34 Pulse Ox 94 02/27/20 08:52 02/26/20 02/27/20 02/27/20 22:59 06:59 14:59 Intake Total 100 / 760 1200 / 1960 Output Total 0 / 400 600 / 1000 Balance 100 / 360 600 / 960 Weight last 48 hrs Weight 246 lb 6.4 oz Physical Exam Const: COMMON NORMALS: no acute distress, alert and well nourished GENERAL APPEARANCE: well kempt and well developed ORIENTATION/CONSCIOUSNESS: not confused Resp: COMMON NORMALS: normal respiratory effort EFFORT & INSPECTION: No labored and No Actively coughing Neuro: COMMON NORMALS: no focal motor deficits SENSORIUM/ORIENTATION: Yes alert Psych: COMMON NORMALS: mental status grossly normal APPEARANCE: Yes grossly normal and Yes well kempt ATTITUDE: Yes calm and Yes engaged Data : 02/27/20 05:28 02/27/20 05:28 Micro: Microbiology 02/24/20 18:17 Urine Culture - Preliminary Urine,Clean Catch A&P Assessment and plan (1) Right ureteral calculus: Doing well after definitive treatment of the stone with laser lithotripsy endoscopically. Stent left indwelling. Status: Acute (2) Renal colic on right side: Secondary to 9 mm proximal right ureteral stone. Resolved Status: Acute (3) Hydronephrosis: Secondary to 9 mm proximal right ureteral stone. Resolved Status: Acute Qualifiers: Hydronephrosis type: with ureteral calculous obstruction Qualified Code(s): N13.2 - Hydronephrosis with renal and ureteral calculous obstruction (4) Nephrolithiasis: Small bilateral nonobstructing stones. Identified on CT scan during evaluation of right renal colicky symptoms. Status: Acute Attestations Medical Necessity Statement*: See attending Coding Level of Care Code Acute [employer] for g Fwd Diagnoses Right ureteral calculus N20.1 Renal colic on right side N23 Hydronephrosis N13.2 Hydronephrosis type: with ureteral calculous obstruction Nephrolithiasis N20.0
[2020-02-27] MEDS: losartan 50 mg Tablet 100 MG PO (09:44)
[2020-02-27] MEDS: aspirin 81 mg EC Tablet PO (09:44)
[2020-02-27] MEDS: phenazopyridine 100 mg Tablet 200 MG PO (09:46)
[2020-02-27] MEDS: levothyroxine 100 mcg Tablet PO (09:46)
[2020-02-27] MEDS: famotidine 20 mg Tablet PO (09:46)
[2020-02-27] MEDS: atenolol 50 mg Tablet PO (09:46)
[2020-02-27] MEDS: duloxetine 60 mg Capsule PO (09:46)
[2020-02-27] MEDS: isosorbide mononitrate ER 30 mg Tablet PO (09:46)
[2020-02-27] MEDS: sennosides-docusate Tablet 1 TAB PO (09:47)
[2020-02-27] MEDS: tamsulosin 0.4 mg Capsule PO (09:47)
[2020-02-27] MEDS: FUROsemide 20 mg Tablet PO (09:47)
[2020-02-27] MEDS: clopidogrel 75 mg Tablet PO (09:47)
--- NOTE | 2020-02-27 10:15 | P.DS_ITS ---
Discharge Providers Date of Admission: 02/24/20 20:14 Date of Discharge: February 27, 2020 Attending Provider at Admission: Wyatt Miller MD Attending Provider at Discharge: Guadalupe Mckenna MD Consults: Urology, Dr. Tran Primary Care Provider: Antonio Walls DO Diagnoses at Discharge Discharge Diagnosis (1) Right ureteral calculus: Status: Acute (2) Renal colic on right side: Status: Acute (3) Hydronephrosis: Status: Acute Qualifiers: Hydronephrosis type: with ureteral calculous obstruction Qualified Code(s): N13.2 - Hydronephrosis with renal and ureteral calculous obstruction (4) Nephrolithiasis: Status: Acute Problem details: -noted to have R 8 x 7 x 6 mm calculus with mild hydronephrosis -Urology consult by Dr. Tran appreciated; s/p lithotripsy and right ureteral stent placement (POD # 1) -pain control, IVF hydration, strain urine -UA with noted hematuria, bacteria, hyaline casts -renal function wnl -continue to monitor urine output; has been voiding independently -flomax, pyridium PRN (5) DM type 2 (diabetes mellitus, type 2): Status: Acute Problem details: -appears to be new onset -A1c-7.4 -accuchecks, will start on low dose metformin, encourage to monitor blood glucose once per day with log which will need to be reviewed by PCP Qualifiers: Diabetes mellitus custodial insulin use: without custodial use Diabetes mellitus complication status: without complication Qualified Code(s): E11.9 - Type 2 diabetes mellitus without complications (6) Abnormal finding on EKG: Status: Acute Problem details: -Noted to have ST depression on EKG -Troponins noted, delta not calculated -Telemetry monitoring -Echo limited study but no noted gross wall motion abnormalities, G1DD -Nuclear stress testing with noted small area of old [place] surrounded by moderate area of medium sized neel-infarct ischemia noted in leads to distal anterior wall suggestive of possible lesion in the LAD territory, TID ratio is elevated. Will likely need further evaluation with cardiac catheterization. Results discussed with Dr. Blas. -on aspirin, statin, Plavix, beta-kassy. We will hold anticoagulation for planned procedure today. Given non-invasive nature of procedure, do not anticipate higher than average risk for complications -BP controlled, continue to monitor vital signs (7) GERD (gastroesophageal reflux disease): Status: Chronic Problem details: -on famotidine Qualifiers: Esophagitis presence: without esophagitis Qualified Code(s): K21.9 - Gastro-esophageal reflux disease without esophagitis (8) Morbid obesity: Status: Chronic Problem details: -BMI-48 kg/m2 -working on getting gastric bypass in [place] (9) Hypothyroidism: Status: Chronic Problem details: -TSH wnl -on levothyroxine Qualifiers: Hypothyroidism type: unspecified Qualified Code(s): E03.9 - Hypothyroidism, unspecified (10) Hypertension: Status: Chronic Problem details: -Presented with hypertensive urgency, BP controlled -Continue to monitor vital signs -Continue losartan, Lasix, atenolol Qualifiers: Hypertension type: essential hypertension Qualified Code(s): I10 - Essential (primary) hypertension (11) Fibromyalgia: Status: Chronic (12) Anxiety: Status: Chronic Reason for Visit Reason for Visit: Reason For Visit: R SIDED BACK PAIN Hospital Course Hospital Course: Patient was admitted to the cardiac stepdown unit and placed on telemetry monitoring. She had been noted to have ST depression on EKG upon elevation. She presented with hypertensive urgency will BP controlled following monitoring and oral antihypertensive treatment. She had also been noted to have right nephrolithiasis with associated hydronephrosis for which Dr. Tran was consulted. In light of her cardiac presentation she had nuclear stress testing done which indicated medium-sized neel-infarct ischemia in mid to distal anterior wall suggestive of possible lesion in LAD territory. Findings were discussed with Dr. Blas as patient would require lithotripsy and ureteral stent placement. Given the non-invasive nature of the procedure no further evaluation was recommended but patient will require angiogram done to further evaluate stress test findings which can be done as an outpatient as she is chest pain free and hemodynamically stable. She did have lithotripsy and a right ureteral stent placement yesterday, procedure was uncomplicated and patient symptoms have improved. Outpatient follow-up with Dr. Tran has been arranged and she has also been referred to cardiology for further evaluation for possible CAD. In the interim she has been started on aspirin, Plavix, statin, long acting nitrate. She was already on a beta-kassy and ARB which she is to continue. She is counseled on need to seek medical attention immediately if noted chest pain, SOB, palpitation, fever/chills, persistent hematuria. She is to follow up with primary care physician within 1 week. Of note, she was found to have A1c- 7.4 consistent with new onset DM type II, and has been started on low dose metformin with PCP follow up on this. Discharge Summary: -Patient to follow up with Dr. Walls within 1 week -Patient to follow up with Dr. Tran in 1 week -Patient to follow up with Dr. Blas in 2 weeks Physical Exam Const: COMMON NORMALS: no acute distress, patient oriented x3 and alert GENERAL APPEARANCE: cooperative and comfortable NUTRITIONAL APPEARANCE: obese morbidly obese ORIENTATION/CONSCIOUSNESS: Yes awake HENMT: COMMON NORMALS: normocephalic, atraumatic, hearing grossly normal bilaterally and moist oral mucous membranes HEAD & SCALP: normocephalic and atraumatic Eye: COMMON NORMALS: Equal, round and reactive pupils present, EOMs intact bilaterally and conjunctivae normal CONJUNCTIVA: Yes conjunctivae normal PUPIL: Yes Equal, round and reactive pupils present Neck/C-Spine: COMMON NORMALS: full ROM GENERAL: Yes normal visual inspection and Yes trachea midline Chest: CHEST: Yes Symmetrical chest wall rise Resp: COMMON NORMALS: normal respiratory effort, No retractions, No use of accessory muscles and clear to auscultation bilaterally EFFORT & INSPECTION: Yes able to speak in complete sentences, Yes symmetric chest movement and No tachypneic AUSCULTATION: clear to auscultation bilaterally OTHER: -on RA Cardio: COMMON NORMALS: regular rate, regular rhythm, S1 normal heart sound present, S2 normal heart sound present and No murmurs present (Cardio) RATE: regular rate RHYTHM: regular rhythm HEART SOUNDS: S1 normal heart sound present and S2 normal heart sound present GI: COMMON NORMALS: Normal to inspection, nondistended, normoactive bowel sounds present, Soft to palpation and non-tender INSPECTION: Yes central obesity PALPATION: Yes Soft to palpation : BLADDER/KIDNEY EXAM: Yes CVA tenderness (minimal) on the right and localized Back/Pelvis: GENERAL BACK: Yes CVA tenderness (minimal) CVA tenderness: right Extremity: COMMON NORMALS: normal to inspection, full ROM, no clubbing, cyanosis or edema and no pedal edema Neuro: COMMON NORMALS: patient oriented x3, moves all extremities, no focal motor deficits, no sensory deficits noted and gait normal SENSORIUM/ORIENTATION: Yes alert Psych: COMMON NORMALS: mental status grossly normal, Normal thought process present, cooperative, normal affect and speech normal SPEECH: Yes normal speech THOUGHT PROCESS: Normal thought process present Skin: COMMON NORMALS: no rashes or lesions noted, no jaundice, no petechiae and no mottling GENERAL SKIN EXAM: no rashes or lesions noted Discharge Data Data Completed and Pending: Completed Studies During Hospitalization Category Date Time Status CT kidney stone 7 [id number] Urgent Cat Scan 02/24/20 18:43 Completed Sestamibi Stress Test Request Routi ne Exams 02/25/20 06:00 Completed XR KUB [id number] Rout ine Exams 02/25/20 07:47 Completed XR KUB [id number] Rout ine Exams 02/26/20 08:03 Completed XR chest 1V rosalia ble [id number] Urgent Exams 02/24/20 17:56 Completed NM jade perf SPECT r/s* [id number] Routin e Nuc Med 02/25/20 05:40 Completed CV echo complete* [id number] Routine Ultrasound 02/25/20 07:00 Completed Pending at discharge Category Date Time Status Sestamibi Stress Test Request Routi ne Exams 02/26/20 06:00 Stop Req Stone Analysis Ro utine Lab 02/26/20 17:34 Ordered Urine Culture Sta t Lab 02/24/20 18:17 Results Pathology: Surgic al [PTH] Routine Pth 02/26/20 17:40 Ordered Labs from last 24 hours 02/27/20 02/27/20 02/26/20 05:28 05:28 20:29 WBC 8.6 RBC 3.84 L Hgb 11.3 L Hct 38.8 MCV 101.0 H MCH 29.4 MCHC 29.1 L RDW 14.5 Plt Count 280 MPV 10.7 H Neut % (Auto) 67.1 Lymph % (Auto) 22.6 [place] % (Auto) 9.1 Eos % (Auto) 0.8 Baso % (Auto) 0.2 Neut # (Auto) 5.8 Lymph # (Auto) 2.0 [place] # (Auto) 0.8 Eos # (Auto) 0.1 Baso # (Auto) 0.0 Nucleated RBC % (a uto) 0 Nucleated RBCs # 0.0 Sodium 138 Potassium 4.1 Chloride 103 Carbon Dioxide 27 Anion Gap 12.1 BUN 16 Creatinine 0.7 GFR Calculation 84.8 L Glucose 134 H POC Glucose 129 Calculated Osmolal ity 284 L Calcium 8.8 Vitals: Last Vital Signs Temp 97.8 F 02/27/20 04:34 Pulse 84 02/27/20 09:42 Resp 16 02/27/20 09:42 BP 120/43 02/27/20 09:44 Pulse Ox 94 02/27/20 09:42 Discharge Plan Discharge Patient Disposition: Home, Self-Care Condition: Stable Prescriptions: New atorvastatin 40 mg Tablet 40 mg PO BEDTIME 30 Days Qty: 30 RF: 0 isosorbide mononitrate 30 mg Tablet Extended Release 24 Hr 30 mg PO DAILY 30 Days Qty: 30 RF: 0 sennosides-docusate sodium 8.6-50 mg Tablet 1 tab PO DAILY 30 Days Qty: 30 RF: 0 clopidogrel 75 mg Tablet 75 mg PO DAILY 30 Days Qty: 30 RF: 0 aspirin 81 mg Tablet,Delayed Release (Dr/Ec) 81 mg PO DAILY 30 Days Qty: 30 RF: 0 famotidine 20 mg Tablet 20 mg PO BID 30 Days Qty: 60 RF: 0 tamsulosin 0.4 mg Capsule 0.4 mg PO DAILY 30 Days Qty: 30 RF: 0 phenazopyridine 100 mg Tablet 200 mg PO TID PRN (Reason: Dysuria) Qty: 30 RF: 0 metformin 500 mg tablet 500 mg PO DAILY Qty: 30 RF: 0 Continued levothyroxine 100 mcg tablet 100 mcg PO DAILY 30 Days Qty: 30 RF: 0 furosemide 20 mg tablet 20 mg PO DAILY 30 Days Qty: 30 RF: 0 losartan 100 mg tablet 100 mg PO DAILY 30 Days Qty: 30 RF: 0 atenolol 50 mg tablet 50 mg PO DAILY 30 Days Qty: 30 RF: 0 duloxetine 60 mg capsule,delayed release(DR/EC) 60 mg PO BID 30 Days Qty: 60 RF: 0 Discharge Orders: Discharge Order (Routine); Ordered 02/27/20 Ordered By: Sumeet Tran Referrals: Sumeet Tran MD [Physician] - 1 week (Late next week with KUB first and follow-up in my office afterwards for possible cystoscopy and stent removal.) Wyatt Blas MD [Physician] - 2 weeks (Referral for abnormal stress test findings. ) Antonio Walls DO [Primary Care Provider] - 4-7 days (Post hospital discharge follow up. Had R ureteral stent placement due to nephrolithiasis and hydronephrosis. Noted to have ischemia in LAD territory that will require further evaluation. Referred to cardiology. Also noted new onset DM, started on low dose metformin. ) Discharge Diet: Cardiac Discharge Activity: Increase activity as tolerated Patient Instructions: Diabetes and Diet, How to Check Your Blood Sugar (GEN), Diabetes Mellitus Type 2 in Adults (DC), Meal Planning with the Plate Model (DC) Activity Restrictions/Additional Instructions: Urology: 1. Follow-up late next week with KUB first to assess results of stone treatment. Likely remove stent in the office after. 2. The ureteral stent causes urgency, frequency, sometimes flank pain with voiding that subsides quickly. These are all normal. Is also normal to see blood in the urine associated with the stent and the procedure. This will resolve after the stent has been removed. 3. Please call if you have any questions or concerns prior to your scheduled follow-up appointment. -You will need to obtain a glucose meter kit which can be bought over the counter, to monitor your blood sugar once a day. Please keep a log for review with your primary care physician Discharge Attestations Time Spent in Discharge Care*: greater than 30 min Specific Discharge Activities: Specific discharge activities: educating patient, discussing with block and case maker/social workers/dc planners, documenting/other paperwork and evaluating patient/reviewing data Status at Discharge: Cognitive status at discharge: cognitively intact , Behavioral status at discharge: cooperative , Functional status at discharge: independent ambulation Overall status at discharge: patient is progressing back to baseline Quality Metrics Clinical Quality Measures During this hospital stay, did patient experience: None Coding Level of Care Code Acute [facility] for [facility] Fwd Diagnoses Right ureteral calculus N20.1 Renal colic on right side N23 Hydronephrosis N13.2 Hydronephrosis type: with ureteral calculous obstruction Nephrolithiasis N20.0 DM type 2 (diabetes mellitus, type 2) E11.9 Diabetes mellitus custodial insulin use: without tank terminal gauger use Diabetes mellitus complication status: without complication Abnormal finding on EKG R94.31 GERD (gastroesophageal reflux disease) K21.9 Esophagitis presence: without esophagitis Morbid obesity E66.01 Hypothyroidism E03.9 Hypothyroidism type: unspecified Hypertension I10 Hypertension type: essential hypertension Fibromyalgia M79.7 Anxiety F41.9
[2020-03-03 23:11] LABS: Stone Source RIGHT URETER STONE
== END 2020-02-27 12:18 | disposition home or self-care (01) | DRG 660 ==
LOC: ER 18:28 → CSU 21:00
PROVIDERS: Nurse Practitioner Family; Urology; Admitting Provider Internal Medicine; PCP Family Medicine; Visit Provider Family Medicine
PROC: 0TJB8ZZ Inspection of Bladder, Via Natural or Artificial Opening Endoscopic (ICD-10-PCS; CPT 52000; principal; 2020-02-26 15:50)
PROC: 0T768DZ Dilation of Right Ureter with Intraluminal Device, Via Natural or Artificial Opening Endoscopic (ICD-10-PCS; 2020-02-26 15:50)
PROC: 0T768DZ Dilation of Right Ureter with Intraluminal Device, Via Natural or Artificial Opening Endoscopic (ICD-10-PCS; CPT 50605; 2020-02-26 15:50)
PROC: 0TJ98ZZ Inspection of Ureter, Via Natural or Artificial Opening Endoscopic (ICD-10-PCS; CPT 52351; 2020-02-26 15:50)
DX: N13.2 Hydronephrosis with renal and ureteral calculous obstruction (principal); Z68.42 Body mass index [BMI] 45.0-49.9, adult; F41.9 Anxiety disorder, unspecified; M79.7 Fibromyalgia; I10 Essential (primary) hypertension; E03.9 Hypothyroidism, unspecified; E66.01 Morbid (severe) obesity due to excess calories; K21.9 Gastro-esophageal reflux disease without esophagitis; I16.0 Hypertensive urgency; E87.5 Hyperkalemia; R31.9 Hematuria, unspecified; I25.2 Old myocardial infarction; E11.9 Type 2 diabetes mellitus without complications
CPT/HCPCS: 12345; 36415; 36416; 71045; 74018; 74176; 76000; 78452; 80048; 80053; 81001; 82365; 82962; 83036; 83605; 83690; 84443; 84484; 85025; 87086; 88300; 93005; 93017; 93306; 94660; 96372; 96374; 96375; 99283; A9500; C1725; C2625; J0280; J0360; J1170; J1650; J1885; J1956; J2001; J2270; J2405; J2704; J2710; J2785; J3010; J3490; J7030

== ENCOUNTER 2020-03-03 16:45 | Emergency (ER) | payer OTHER, SELFPAY ==
[2020-03-03 16:54] VITALS: BP 134/61; PULSE 74; RESP 17; TEMP 36.6; O2SAT 94; BMI 45.8
[2020-03-03 17:01] VITALS: PULSE 71; RESP 16; O2SAT 97
--- NOTE | 2020-03-03 17:09 | W.ED.NEUROSD ---
HPI - Neuro Symptoms/Deficit General: Chief Complaint: Neuro Symptoms/Deficit Stated Complaint: dizzy/r side tingling and numb Time Seen by Provider: 03/03/20 16:59 Source: patient Mode of arrival: ambulatory Limitations: no limitations History of Present Illness: HPI Narrative: 64-year-old female patient who presents to the emergency department with concerns of right-sided tingling. Symptoms started about 2 hours prior to presentation. No headache or dizziness. No weakness. No prior CVA history. She was discharged about 5 days ago from the hospital following an admission for ureteric colic and she needed lithotripsy and a stent placed. She denies any urinary symptoms. Onset (ago): hour(s) (2) Location: right face, right arm and right leg History of same: No Severity: mild Quality: tingling Relieving factors: none Exacerbating factors: none On Anticoagulants: No Associated symptoms: Reports no associated symptoms; Deny chest pain, headache(s), nausea or vomiting Review of Systems General: Reports: 10 or more systems reviewed and unremarkable except in HPI and below Const: Denies: fever(s), chills or body aches Eyes: Denies: change in vision or blurry vision ENMT: Denies: throat pain, enlarged tonsils, odynophagia, hoarseness, mouth pain or swelling of lips/tongue Card: Denies: chest pain, palpitations, irregular heart rhythm, edema or swelling of feet/ankles Resp: Denies: dyspnea, productive cough or non-productive cough GI: Denies: abdominal pain, nausea or vomiting : Denies: flank pain, difficulty voiding, dysuria, urinary frequency, urinary urgency or urinary hesitancy Musc: Denies: neck pain, back pain or extremity swelling Skin/Breast: Denies: rash, pruritus or erythema Neuro: Reports: numbness in extremities and sensory changes; Denies: headache(s) or weakness in extremities Endo: Denies: polyuria, polydipsia or tired all the time [facility] PFSH: Medical History Abnormal finding on EKG -Noted to have ST depression on EKG -Troponins noted, delta not calculated -Telemetry monitoring -Echo limited study but no noted gross wall motion abnormalities, G1DD -Nuclear stress testing with noted small area of old DE surrounded by moderate area of medium sized neel-infarct ischemia noted in leads to distal anterior wall suggestive of possible lesion in the LAD territory, TID ratio is elevated. Will likely need further evaluation with cardiac catheterization. Results discussed with Dr. Blas. -on aspirin, statin, Plavix, beta-kassy. We will hold anticoagulation for planned procedure today. Given non-invasive nature of procedure, do not anticipate higher than average risk for complications -BP controlled, continue to monitor vital signs Anxiety DM type 2 (diabetes mellitus, type 2) -appears to be new onset -A1c-7.4 -accuchecks, will start on low dose metformin, encourage to monitor blood glucose once per day with log which will need to be reviewed by PCP Fibromyalgia GERD (gastroesophageal reflux disease) -on famotidine Hydronephrosis Hypertension -Presented with hypertensive urgency, BP controlled -Continue to monitor vital signs -Continue losartan, Lasix, atenolol Hypothyroidism -TSH wnl -on levothyroxine Morbid obesity -BMI-48 kg/m2 -working on getting gastric bypass in [place] Right ureteral calculus Surgical History H/O: hysterectomy Family History Grandfather Family history of premature coronary artery disease Grandfather of [place] at age 50 Social History Smoking and tobacco status: never smoked Alcohol intake: never Household members: family Housing: House NIH stroke score NIHSS: Level Of Consciousness - 1a: 0 Level Of Consciousness Questions - 1b: Both Correct Level Of Consciousness Commands - 1c: Both Correct Best Gaze - 2: Normal Visual Kendrick - 3: No Visual Loss Facial Palsy - 4: Normal Motor Arm Right - 5: No Drift Motor Arm Left - 5: No Drift Motor Leg Right - 6: No Drift Motor Leg Left - 6: No Drift Limb Ataxia - 7: Absent Sensory - 8: Mild To Moderate Loss Best Language - 9: No Aphasia Dysarthia - 10: Normal Physical Exam Const: COMMON NORMALS: no acute distress, average body habitus, patient oriented x3, no limitations, healthy appearing, alert and well nourished HENMT: COMMON NORMALS: normocephalic, atraumatic and moist oral mucous membranes HEAD & SCALP: normocephalic and atraumatic Eye: COMMON NORMALS: Equal, round and reactive pupils present, EOMs intact bilaterally, conjunctivae normal and no scleral icterus CONJUNCTIVA: Yes conjunctivae normal PUPIL: Yes Equal, round and reactive pupils present Neck/C-Spine: COMMON NORMALS: full ROM, supple, no meningeal signs, no JVD and No carotid bruits Resp: COMMON NORMALS: normal respiratory effort, No retractions, No use of accessory muscles, clear to auscultation bilaterally and percussion normal AUSCULTATION: clear to auscultation bilaterally PERCUSSION: percussion normal Cardio: COMMON NORMALS: no JVD, regular rate, regular rhythm, S1 normal heart sound present, S2 normal heart sound present, No gallops present (Cardio), No clicks present (Cardio), No murmurs present (Cardio), No rub (Cardio) and Peripheral pulses 2+ throughout RATE: regular rate RHYTHM: regular rhythm HEART SOUNDS: S1 normal heart sound present and S2 normal heart sound present PERIPHERAL PULSES: Peripheral pulses 2+ throughout GI: COMMON NORMALS: Normal to inspection, nondistended, normoactive bowel sounds present, Soft to palpation, non-tender, No hepatosplenomegaly present, no masses and no bruits PALPATION: Yes Soft to palpation and Yes No hepatosplenomegaly present : COMMON NORMALS: Yes no CVA tenderness BLADDER/KIDNEY EXAM: Yes no CVA tenderness Back/Pelvis: COMMON NORMALS: no CVA tenderness Extremity: COMMON NORMALS: normal to inspection, full ROM, capillary refill normal, no calf tenderness and no pedal edema Neuro: COMMON NORMALS: patient oriented x3 SENSORIUM/ORIENTATION: Yes alert MENINGEAL SIGNS: Yes no meningeal signs Skin: COMMON NORMALS: no rashes or lesions noted, no wounds, turgor normal, no jaundice, no petechiae and no mottling GENERAL SKIN EXAM: no rashes or lesions noted and turgor normal Course Reevaluation(s): Reevaluation #1: Discussed her lab and imaging findings with her. Negative for acute findings. Discussed my conversation with the neurologist for her, has a low NIH SS score as well as her clinical findings do not support a CVA and no need for further testing. She is on the maximal medical management anyway with aspirin, Plavix, atorvastatin. We will discharge her home with no new orders. She voiced understanding and is in agreement with the plan Time: 22:24 Consultations: Consultation #1: Dr. Nolan, neurologist. Patient unlikely to have a CVA, NIHSS low. No indication for further neurologic testing. She is already on the maximal medical management. Time: 17:56 Vital Signs: Vital signs: Vital Signs Temperature 97.9 F 03/03/20 16:54 Pulse Rate 74 03/03/20 22:42 Respiratory Rate 17 03/03/20 22:42 Blood Pressure 132/74 03/03/20 22:42 Pulse Oximetry 98 03/03/20 22:42 MDM - Neuro Symptoms/Deficit MDM Narrative: Medical decision making narrative: 64-year-old female patient who was recently discharged from the hospital following lithotripsy for renal calculi. She presents today with paresthesia of her right side of her body. No focal weakness. NIHSS 1. Evaluation in the emergency department is unremarkable, she is already on aspirin, clopidogrel, atorvastatin and beta-kassy. She is discharged home with no new orders and to follow-up with her primary care provider and her specialists. Medical Records: Attestation: I reviewed the patient's medical records. Lab Data: Attestation: I reviewed the patient's lab results. Labs: Lab Results 03/03/20 03/03/20 03/03/20 Range/Units 17:20 17:20 17:20 WBC 9.6 (4.0-10.0) 10^3/ uL RBC 4.18 (4.1-5.3) 10^6/u L Hgb 12.4 (11.5-15.3) g/dL Hct 40.6 (37.0-47.0) % MCV 97.1 (81-99) fL MCH 29.7 (28.0-34.0) pg MCHC 30.5 (30.0-36.0) g/dL RDW 14.1 (12.1-15.1) % Plt Count 356 (130-400) 10^3/c mm MPV 10.8 H (7.4-10.4) fL Neut % (Auto) 68.4 % Lymph % (Auto) 20.5 % Braxton % (Auto) 8.8 % Eos % (Auto) 1.7 % Baso % (Auto) 0.4 % Neut # (Auto) 6.6 (1.8-7.7) 10^3/u L Lymph # (Auto) 2.0 (0.8-4.8) 10^3/u L Braxton # (Auto) 0.9 (0.2-0.9) 10^3/u L Eos # (Auto) 0.2 (0.0-0.8) 10^3/u L Baso # (Auto) 0.0 (0.0-0.1) 10^3/u L Nucleated RBC % (a uto) 0 % Nucleated RBCs # 0.0 /100WBC PT 13.00 (10.5-13.3) SECO NDS INR 0.96 (0.8-1.2) APTT 31.6 (23.9-36.7) SECO NDS Sodium 142 (136-145) mmol/L Potassium 3.5 (3.5-5.1) mmol/L Chloride 101 (98-107) mmol/L Carbon Dioxide 28 (22-29) mmol/L Anion Gap 16.5 (5-19) BUN 16 (8-23) mg/dL Creatinine 1.0 H (0.5-0.9) mg/dL GFR Calculation 56.2 L (90-130) mL/min Glucose 148 H (65-115) mg/dL Calculated Osmolal ity 293 (285-295) mOsm/k g Calcium 9.6 (8.5-10.5) mg/dL Total Bilirubin 0.4 (0.15-1.2) mg/dL AST 17 (0-32) U/L ALT 27 (0-33) U/L Alkaline Phosphata se 70 (35-105) IU/L Troponin T Baselin e (0-10) ng/mL Troponin T 120 Min [place] (0-10) ng/mL Delta Troponin T (0-10) ABS# Total Protein 6.5 L (6.6-8.7) g/dL Albumin 3.8 (3.5-5.2) g/dL Globulin 2.7 (1.3-4.6) g/dL Urine Color (Yellow) Urine Appearance (CLEAR) Urine pH Ur Specific Gravit y Urine Protein Urine RBC (0-2) /hpf Urine WBC (0-5) /hpf Ur Squamous Epith Cells (0-5) Urine Bacteria (NONE) Urine Opiates Scre en (Negative) ng/mL Ur Barbiturates Sc reen (Negative) ng/mL Ur Phencyclidine S crn (Negative) ng/mL Ur Amphetamines Sc reen (Negative) ng/mL U Benzodiazepines Scrn (Negative) ng/mL Urine Cocaine Scre en (Negative) ng/mL U Marijuana (THC) Screen (Negative) ng/mL 03/03/20 03/03/20 03/03/20 Range/Units 17:20 18:52 19:20 WBC (4.0-10.0) 10^3/ uL RBC (4.1-5.3) 10^6/u L Hgb (11.5-15.3) g/dL Hct (37.0-47.0) % MCV (81-99) fL MCH (28.0-34.0) pg MCHC (30.0-36.0) g/dL RDW (12.1-15.1) % Plt Count (130-400) 10^3/c mm MPV (7.4-10.4) fL Neut % (Auto) % Lymph % (Auto) % Braxton % (Auto) % Eos % (Auto) % Baso % (Auto) % Neut # (Auto) (1.8-7.7) 10^3/u L Lymph # (Auto) (0.8-4.8) 10^3/u L Braxton # (Auto) (0.2-0.9) 10^3/u L Eos # (Auto) (0.0-0.8) 10^3/u L Baso # (Auto) (0.0-0.1) 10^3/u L Nucleated RBC % (a uto) % Nucleated RBCs # /100WBC PT (10.5-13.3) SECO NDS INR (0.8-1.2) APTT (23.9-36.7) SECO NDS Sodium (136-145) mmol/L Potassium (3.5-5.1) mmol/L Chloride (98-107) mmol/L Carbon Dioxide (22-29) mmol/L Anion Gap (5-19) BUN (8-23) mg/dL Creatinine (0.5-0.9) mg/dL GFR Calculation (90-130) mL/min Glucose (65-115) mg/dL Calculated Osmolal ity (285-295) mOsm/k g Calcium (8.5-10.5) mg/dL Total Bilirubin (0.15-1.2) mg/dL AST (0-32) U/L ALT (0-33) U/L Alkaline Phosphata se (35-105) IU/L Troponin T Baselin e 27 H (0-10) ng/mL Troponin T 120 Min [place] 29.69 H (0-10) ng/mL Delta Troponin T 2.69 (0-10) ABS# Total Protein (6.6-8.7) g/dL Albumin (3.5-5.2) g/dL Globulin (1.3-4.6) g/dL Urine Color (Yellow) Urine Appearance (CLEAR) Urine pH Ur Specific Gravit y Urine Protein Urine RBC (0-2) /hpf Urine WBC (0-5) /hpf Ur Squamous Epith Cells (0-5) Urine Bacteria (NONE) Urine Opiates Scre en Positive H (Negative) ng/mL Ur Barbiturates Sc reen Negative (Negative) ng/mL Ur Phencyclidine S crn Negative (Negative) ng/mL Ur Amphetamines Sc reen Negative (Negative) ng/mL U Benzodiazepines Scrn Positive H (Negative) ng/mL Urine Cocaine Scre en Negative (Negative) ng/mL U Marijuana (THC) Screen Negative (Negative) ng/mL 03/03/20 Range/Units 20:35 WBC (4.0-10.0) 10^3/ uL RBC (4.1-5.3) 10^6/u L Hgb (11.5-15.3) g/dL Hct (37.0-47.0) % MCV (81-99) fL MCH (28.0-34.0) pg MCHC (30.0-36.0) g/dL RDW (12.1-15.1) % Plt Count (130-400) 10^3/c mm MPV (7.4-10.4) fL Neut % (Auto) % Lymph % (Auto) % Braxton % (Auto) % Eos % (Auto) % Baso % (Auto) % Neut # (Auto) (1.8-7.7) 10^3/u L Lymph # (Auto) (0.8-4.8) 10^3/u L Braxton # (Auto) (0.2-0.9) 10^3/u L Eos # (Auto) (0.0-0.8) 10^3/u L Baso # (Auto) (0.0-0.1) 10^3/u L Nucleated RBC % (a uto) % Nucleated RBCs # /100WBC PT (10.5-13.3) SECO NDS INR (0.8-1.2) APTT (23.9-36.7) SECO NDS Sodium (136-145) mmol/L Potassium (3.5-5.1) mmol/L Chloride (98-107) mmol/L Carbon Dioxide (22-29) mmol/L Anion Gap (5-19) BUN (8-23) mg/dL Creatinine (0.5-0.9) mg/dL GFR Calculation (90-130) mL/min Glucose (65-115) mg/dL Calculated Osmolal ity (285-295) mOsm/k g Calcium (8.5-10.5) mg/dL Total Bilirubin (0.15-1.2) mg/dL AST (0-32) U/L ALT (0-33) U/L Alkaline Phosphata se (35-105) IU/L Troponin T Baselin e (0-10) ng/mL Troponin T 120 Min [place] (0-10) ng/mL Delta Troponin T (0-10) ABS# Total Protein (6.6-8.7) g/dL Albumin (3.5-5.2) g/dL Globulin (1.3-4.6) g/dL Urine Color [place] (Yellow) Urine Appearance Cloudy (CLEAR) Urine pH Social Work Administrator Ur Specific Gravit y Social Work Administrator Urine Protein Social Work Administrator Urine RBC Too numerous to c nt H (0-2) /hpf Urine WBC >100 H (0-5) /hpf Ur Squamous Epith Cells 5-10 H (0-5) Urine Bacteria 4+ H (NONE) Urine Opiates Scre en (Negative) ng/mL Ur Barbiturates Sc reen (Negative) ng/mL Ur Phencyclidine S crn (Negative) ng/mL Ur Amphetamines Sc reen (Negative) ng/mL U Benzodiazepines Scrn (Negative) ng/mL Urine Cocaine Scre en (Negative) ng/mL U Marijuana (THC) Screen (Negative) ng/mL Imaging Data^: CT Head: Radiologist's impression: [address] [address] [address] Scan Report Signed Patient: Renny Simpson #: [id number] : 7Acct#:[id number] Age/Sex: 64 / FADM Date: 03/03/20 Loc: ERRoom/Bed: Attending Dr: Ordering Provider/Ordering MD: Teja Song MD, [facility] Date of Service: 03/03/20 Procedure(s): CT head wo con* 19603 Accession Number(s): [id number] Report Number: [id number] PROCEDURE INFORMATION: Exam: CT Head Without Contrast Exam date and time: 03/03/2020 5:13 PM Age: 64 years old Clinical indication: Pain; Dizziness and weakness, extremity and other: RT side tingling; Headache; Additional info: Symptoms of acute stroke TECHNIQUE: Imaging protocol: Computed tomography of the head without contrast. Radiation optimization: All CT scans at this facility use at least one of these dose optimization techniques: automated exposure control; mA and/or kV adjustment per patient size (includes targeted exams where dose is matched to clinical indication); or iterative reconstruction. COMPARISON: No relevant prior studies available. FINDINGS: Examination is limited by artifacts from patient motion. There is mild low density in the bilateral periventricular white matter which may represent chronic small vessel ischemic disease in the appropriate clinical setting. There are lacunar infarctions in bilateral basal ganglia and anterior aspect of corpus callosum on right which may be old. The possibility of superimposed acute infarctions cannot be excluded; consider MRI brain (including diffusion images) for further assessment if clinically warranted and if patient has no contraindication to MRI. There are prominent intracranial arterial calcifications. Probable Virchow-Miguel space in lower aspect of right basal ganglia. There is mild cerebral cortical atrophy. Ventricles do not appear significantly dilated. No definite depressed calvarial fracture is demonstrated. Visualized paranasal sinuses and mastoid air cells demonstrate no significant opacification. CT/CT head wo con* [id number] IMPRESSION: Probable chronic ischemic changes as discussed above. Total DLP: 726.98 mGy-cm Radiation Dose CTDIVOL = (mGy): DLP = 726.98 (mGy-cm) Dictated By:Austyn Hayward MD Signed By:Austyn Hayward MDSigned Date/Time:03/03/201750 DD/ 48 EKG Data^: EKG 1: Attestation: I personally reviewed and interpreted this EKG as follows: EKG interpretation date: 03/03/20 EKG interpretation time: 18:00 Interpretation: Normal sinus rhythm. Heart rate 71 bpm. Normal axis. No ST changes EKG 2: Attestation: I personally reviewed and interpreted this EKG as follows: EKG interpretation date: 03/03/20 EKG interpretation time: 19:26 Interpretation: Unchanged from earlier today Discharge Plan Discharge Patient Disposition: Home, Self-Care Clinical Impression: Paresthesia Condition: Stable Prescriptions: Continued atorvastatin 40 mg Tablet 40 mg PO BEDTIME 30 Days Qty: 30 RF: 0 isosorbide mononitrate 30 mg Tablet Extended Release 24 Hr 30 mg PO DAILY 30 Days Qty: 30 RF: 0 clopidogrel 75 mg Tablet 75 mg PO DAILY 30 Days Qty: 30 RF: 0 aspirin 81 mg Tablet,Delayed Release (Dr/Ec) 81 mg PO DAILY 30 Days Qty: 30 RF: 0 famotidine 20 mg Tablet 20 mg PO BID 30 Days Qty: 60 RF: 0 tamsulosin 0.4 mg Capsule 0.4 mg PO DAILY 30 Days Qty: 30 RF: 0 phenazopyridine 100 mg Tablet 200 mg PO TID PRN (Reason: Dysuria) Qty: 30 RF: 0 levothyroxine 100 mcg tablet 100 mcg PO DAILY 30 Days Qty: 30 RF: 0 furosemide 20 mg tablet 20 mg PO DAILY 30 Days Qty: 30 RF: 0 losartan 100 mg tablet 100 mg PO DAILY 30 Days Qty: 30 RF: 0 atenolol 50 mg tablet 50 mg PO DAILY 30 Days Qty: 30 RF: 0 duloxetine 60 mg capsule,delayed release(DR/EC) 60 mg PO BID 30 Days Qty: 60 RF: 0 metformin 500 mg tablet 500 mg PO DAILY Qty: 30 RF: 0 Discharge Orders: Discharge Order (Routine); Ordered 03/03/20 Ordered By: Teja Song Referrals: Antonio Walls, [Primary Care Provider] - 1-3 days Activity Restrictions/Additional Instructions: Return for any new or worsening symptoms. Follow-up with your primary care provider within 3 days. Take your home medications as prescribed. Discharge Date/Time: 03/03/20 22:56 Coding Level of Care Code ED Institutional Asset Manager for Amna Colunga
[2020-03-03 17:25] LABS: Basophils % 0.4 %; Eosinophils # 0.2 10^3/uL (0.0-0.8); Eosinophils % 1.7 %; Hematocrit 40.6 % (37.0-47.0); Hemoglobin 12.4 g/dL (11.5-15.3); Lymphocytes % 20.5 %; Mean Corpuscular HGB Conc 30.5 g/dL (30.0-36.0); Mean Corpuscular Hemoglobin 29.7 pg (28.0-34.0); Mean Corpuscular Volume 97.1 fL (81-99); Mean Platelet Volume 10.8 fL (7.4-10.4); Monocytes # 0.9 10^3/uL (0.2-0.9); Monocytes % 8.8 %; Neutrophils # 6.6 10^3/uL (1.8-7.7); Neutrophils % 68.4 %; Nucleated Red Blood Cells % 0 %; Platelet Count 356 10^3/cmm (130-400); Red Blood Count 4.18 10^6/uL (4.1-5.3); Red Cell Distribution Width 14.1 % (12.1-15.1); White Blood Count 9.6 10^3/uL (4.0-10.0)
[2020-03-03 17:35] LABS: INR 0.96 (0.8-1.2)
[2020-03-03 17:36] LABS: Partial Thromboplastin Time 31.6 SECONDS (23.9-36.7)
[2020-03-03 17:42] LABS: Alanine Aminotransferase 27 U/L (0-33); Albumin Level 3.8 g/dL (3.5-5.2); Alkaline Phosphatase 70 IU/L (35-105); Anion Gap 16.5 (5-19); Aspartate Amino Transferase 17 U/L (0-32); Blood Urea Nitrogen 16 mg/dL (8-23); Calcium 9.6 mg/dL (8.5-10.5); Carbon Dioxide 28 mmol/L (22-29); Chloride 101 mmol/L (98-107); Globulin 2.7 g/dL (1.3-4.6); Glomerular Filtration Rate 56.2 mL/min (90-130); Glucose 148 mg/dL (65-115); Osmolality Calculated 293 mOsm/kg (285-295); Potassium 3.5 mmol/L (3.5-5.1); Sodium 142 mmol/L (136-145); Total Bilirubin 0.4 mg/dL (0.15-1.2); Total Protein 6.5 g/dL (6.6-8.7)
[2020-03-03 17:47] LABS: Troponin(5th) Baseline 27 ng/mL (0-10)
--- NOTE | 2020-03-03 19:09 | ECG_ITS ---
Measurements Intervals [place] Rate: 67 P: 9 AL: 162 QRS: 16 QRSD: 96 T: 69 QT: 380 QTc: [address] & T-WAVE ABNORMALITY Compared to ECG 02/25/2020 05:36:57 T-wave abnormality now present Left ventricular hypertrophy no longer present ST (T wave) deviation no longer present Electronically Signed On 03-03-2020 21:00:51 CDT by Bautista Yoon M.D. [email or web address]
[2020-03-03 19:46] LABS: Troponin 5 2HR 29.69 ng/mL (0-10); Troponin 5 2HR Delta 2.69 ABS# (0-10)
[2020-03-03 19:46] LABS: Amphetamines Screen Urine Negative (Negative); Barbiturates Screen Urine Negative (Negative); Benzodiazepines Screen Urine Positive (Negative); Cocaine Screen Urine Negative (Negative); Opiate Screen Urine Positive (Negative); PCP Screen Urine Negative (Negative); THC Screen Urine Negative (Negative)
[2020-03-03 21:59] LABS: Add Urine Microscopic? YES
[2020-03-03 22:06] LABS: Urine Appearance Cloudy (CLEAR); Urine Color Orange (Yellow)
[2020-03-03 22:33] LABS: Add Urine Culture? Yes; Bacteria Urine 4+; RBC Urine TOO NUMEROUS TO CNT /hpf (0-2); WBC Urine >100 /hpf (0-5)
[2020-03-03 22:42] VITALS: BP 132/74; PULSE 74; RESP 17; O2SAT 98
--- NOTE | 2020-03-03 23:09 | ECG_ITS ---
Measurements Intervals [place] Rate: 71 P: 12 MO: 165 QRS: 19 QRSD: 85 T: 68 QT: 381 QTc: [address] & T-WAVE ABNORMALITY Compared to ECG 02/25/2020 05:36:57 T-wave abnormality now present Left ventricular hypertrophy no longer present ST (T wave) deviation no longer present Electronically Signed On 03-03-2020 21:02:50 CDT by Bautista Yoon M.D. [email or web address]
== END 2020-03-03 22:56 | disposition home or self-care (01) ==
PROVIDERS: Emergency Provider Family Medicine; PCP Family Medicine
DX: R20.2 Paresthesia of skin (principal); E11.9 Type 2 diabetes mellitus without complications; I10 Essential (primary) hypertension
CPT/HCPCS: 12345; 70450; 80053; 80306; 81001; 84484; 85025; 85610; 85730; 87086; 93005; 99283; 99284

== ENCOUNTER 2020-03-05 10:04 | Outpatient (CLI) | payer OTHER, SELFPAY ==
--- NOTE | 2020-03-05 10:15 | XR_ITS ---
WS: [id number] XR KUB [id number] REASON FOR EXAM: Stone FINDINGS: A stent is seen in the right kidney down to the bladder. No definite calcifications are see n adjacent to the stent. The left kidney was normal. There is nonspecific findings. XR/XR KUB [id number] IMPRESSION: Stent in good position on the right side.
== END 2020-03-05 10:05 | disposition home or self-care (01) ==
LOC: RAD 10:07
PROVIDERS: PCP Family Medicine; Visit Provider Urology
DX: N20.0 Calculus of kidney (principal); Z96.0 Presence of urogenital implants
CPT/HCPCS: 74018; 81001

== ENCOUNTER 2020-03-10 12:13 | Outpatient (CLI) | payer OTHER, SELFPAY ==
--- NOTE | 2020-03-10 12:19 | XR_ITS ---
WS: [id number] KUB, 03/10/2020 Clinical Data: URETERAL STONE Comparison: KUB, 03/05/2020. Findings: The right ureteral stent remains in the same position. It probably extends from the right renal pelvi s into the bladder. There is fecal material obscuring detail over the kidneys but no definite renal c alculi are seen. No definite ureteral calculi are noted. XR/XR KUB [id number] Impression: Right ureteral stent unchanged.
== END 2020-03-10 12:14 | disposition home or self-care (01) ==
LOC: RAD 12:16
PROVIDERS: PCP Family Medicine; Visit Provider Family Medicine
DX: N20.1 Calculus of ureter (principal); Z96.0 Presence of urogenital implants
CPT/HCPCS: 74018; 81001

== ENCOUNTER → 2020-03-12 10:44 | Day surgery (SDC) | payer OTHER, SELFPAY ==
[2020-03-11 16:14] VITALS: BMI 47.8
[2020-03-12 11:26] VITALS: BP 176/73; PULSE 77; RESP 18; TEMP 36.8; O2SAT 93
--- NOTE | 2020-03-12 11:32 | ANES.PREANE2 ---
Pre-Anesthetic Assessment Pre-Anesthetic Assessment: Height/Weight: Height 1.52 m Weight 111.13 kg Temp Pulse Resp BP Pulse Ox 98.2 F 77 18 176/73 93 03/12/20 11:26 03/12/20 11:26 03/12/20 11:26 03/12/20 11:26 03/12/20 11:26 Preop Diagnosis: New right proximal ureteral stone Proposed Procedure: Operation Date: 03/12/20 12:30 Proposed Procedures p Cystoscopy, Right: retrograde, ureteroscopy, laser, stent. 44342(Not Applicable) - Sumeet Tran MD s Retrograde Pyelogram(Right) - MD tere Contreras Flexible Ureteroscopy(Not Applicable) - MD tere Contreras Laser Lithotripsy(Not Applicable) - MD tere Contreras Ureteral Stent Placement(Right) - Sumeet Tran MD Was Beta Divine taken within 24 hours: Yes Social: Social History: No alcohol and No tobacco Exam: Pre-Anes Outpt Exam: alert, oriented x 3, clear to auscultation bilaterally and regular rate & rhythm Airway: Submandibular: WNL Cervical ROM: WNL MP: 2 Dentition: Full Pulmonary: Pulmonary: SOB CV/HEM: CV/HEM: Angina (Stable), CAD (Pt had AL with onset of last kidney stone 3 weeks ago) and HTN : Comments: History of Renal Calculi Hepatic: Hepatic: None reported GI: GI: GERD Metabolic: Metabolic: DM and Thyroid Musc/skel: Musc/skel: None reported Neuropsych: Neuropsych: None reported Anesthetic Plan: ASA status: 3 Anesthesia: General PFSH Anesthesia PFSH: Medical History (Updated 03/11/20 @ 00:00 by ) Abnormal finding on EKG -Noted to have ST depression on EKG -Troponins noted, delta not calculated -Telemetry monitoring -Echo limited study but no noted gross wall motion abnormalities, G1DD -Nuclear stress testing with noted small area of old AL surrounded by moderate area of medium sized neel-infarct ischemia noted in leads to distal anterior wall suggestive of possible lesion in the LAD territory, TID ratio is elevated. Will likely need further evaluation with cardiac catheterization. Results discussed with Dr. Blas. -on aspirin, statin, Plavix, beta-divine. We will hold anticoagulation for planned procedure today. Given non-invasive nature of procedure, do not anticipate higher than average risk for complications -BP controlled, continue to monitor vital signs Anxiety DM type 2 (diabetes mellitus, type 2) -appears to be new onset -A1c-7.4 -accuchecks, will start on low dose metformin, encourage to monitor blood glucose once per day with log which will need to be reviewed by PCP Fibromyalgia GERD (gastroesophageal reflux disease) -on famotidine Hydronephrosis Hypertension -Presented with hypertensive urgency, BP controlled -Continue to monitor vital signs -Continue losartan, Lasix, atenolol Hypothyroidism -TSH wnl -on levothyroxine Morbid obesity -BMI-48 kg/m2 -working on getting gastric bypass in [place] Right ureteral calculus Surgical History H/O: hysterectomy Family History Grandfather Family history of premature coronary artery disease Grandfather of [place] at age 50 Social History Smoking and tobacco status: never smoked Alcohol intake: never Adopted: No Caregiver/support person: No Lives independently: No Household members: spouse and family Housing: House Marital status: Current occupational status: employed Current gender identity: Female Data Anesthesia Cardiac Studies: No Data to Display
[2020-03-12] MEDS: sodium chloride 0.9% 1,000 ML 30 ML IV (11:52)
[2020-03-12 11:58] LABS: Glucose Point of Care 104 mg/dL (70-110)
--- NOTE | 2020-03-12 12:59 | SUR.PREOP ---
[address] Tran discussing patient case. Due to cardiac status, surgery postponed at this time.
--- NOTE | 2020-03-12 16:01 | PM.MISC ---
Miscellaneous Note Purpose of Documentation: Amanda was scheduled for ureteroscopy and stone extraction possible laser lithotripsy. On preoperative evaluation today before surgery concern was raised regarding her cardiac status. On careful questioning she did admit to some increasing chest pain. Review of cardiology evaluation and suggestions for moving toward cardiac catheterization and possible intervention were noted and for that reason her surgery was canceled. While she is having some discomfort related to the stent there was no emergency that would necessitate intervention and that the risk of sepsis or renal damage was very low. All of this was explained to the patient in detail and she was very gracious and was appreciative of the concern regarding her cardiac status. She has a scheduled appointment resulting from this change in plans on 03/15/2020 at 3:[address] Blas.
== END ==
PROVIDERS: PCP Family Medicine; Visit Provider Urology
PROC: 0TJB8ZZ Inspection of Bladder, Via Natural or Artificial Opening Endoscopic (ICD-10-PCS; CPT 52000; principal; 2020-03-12 12:30)
PROC: (CPT 74420; 2020-03-12 12:30)
PROC: 0TJ98ZZ Inspection of Ureter, Via Natural or Artificial Opening Endoscopic (ICD-10-PCS; CPT 52351; 2020-03-12 12:30)
PROC: (CPT 50605; 2020-03-12 12:30)
DX: N20.1 Calculus of ureter (principal); Z53.8 Procedure and treatment not carried out for other reasons
CPT/HCPCS: 36416; 82962; J7030

== ENCOUNTER → 2020-03-18 09:12 | Outpatient (BNVA) | payer OTHER, SELFPAY | PROVIDERS: PCP Family Medicine; Visit Provider Internal Medicine Cardiovascular Disease | DX: R94.39 Abnormal result of other cardiovascular function study (principal) | CPT/HCPCS: 80048; 85025 ==

== ENCOUNTER 2020-03-22 08:39 | Observation (INO) | payer OTHER, SELFPAY ==
[2020-03-22] VITALS (38 sets, daily range): BP systolic 119–177; BP diastolic 56–130; PULSE 67–89; RESP 12–24; TEMP 36.9; O2SAT 93–98; BMI 46.0
--- NOTE | 2020-03-22 06:00 | XACV_ITS ---
Ht: 152 cm Wt: 107 kg BSA: 2.20 m2 Gender: Female : 1955 Any Known Allergies: Other Exam Priority: Routine Procedure(s): Procedure Description: Diagnostic procedure Diagnostic Findings LM has 0% stenosis. CX has 0% stenosis. pLAD to mLAD: Severe 90% stenosis, APOLINAR: 3 flow. 1st Diag: Severe 80% stenosis, APOLINAR: 3 flow. mRCA to dRCA: Moderate 50% stenosis, APOLINAR: 3 flow. Coronary angiography shows right dominance. Conclusions There is severe coronary artery disease with two vessel disease. Hyperdynamic left ventricular systolic function. Ejection fraction of 70%. 64-year-old diabetic female admitted with ureteric stone A. fib RVR and dynamic EKG changes with chest pain. She underwent stress test which was suggestive of increased TID and medium-sized area of moderate to severe ischemia in LAD territory. Today she underwent left heart cath because of that reason. 1-Left main is normal2-LAD is moderate size and caliber vessel with long proximal to mid bifurcating severe 90 to 95% stenosis.3-Diagonal 1 is moderate size and caliber vessel which has ostial to proximal 80% bifurcating stenosis with LAD4-LCx is moderate size and caliber vessel with luminal irregularity5-RCA is moderate size and caliber dominant vessel with mid 50% stenosis.6-Left ventricle end-diastolic pressure is elevated7-Left ventricle ejection fraction is hyperdynamic 70%.8-No aortic valve gradient noted. Recommendations 1-Return to [facility] for close monitoring and routine PCI care 2-Continue Medical management 3-Hold Plavix for possible CABG 4-Statin with LDL goal of 70 mg/dl, aspirin 81 mg p.o. daily for life long 5-CT surgery consults for CABG 6-Optimal medical management for GA 7-Follow up with Dr. Blas in four weeks and establish care with primary care physician . Diagnostic RX Recommendation: CABG Ejection Fraction: 70.0 % Pressures Phase:Rest AO : 181 mmHg / 87 mmHg ( 126 mmHg ) @ 3:12:00 AM 181 mmHg / 87 mmHg ( 126 mmHg ) @ 3:12:00 AM 176 mmHg / 86 mmHg ( 123 mmHg ) @ 3:13:00 AM LV : 167 mmHg / 26 mmHg / @ 3:11:00 AM 170 mmHg / 25 mmHg / @ 3:11:00 AM 180 mmHg / 18 mmHg / @ 3:12:00 AM 173 mmHg / 9 mmHg / @ 3:12:00 AM Valves Phase:DefaultPhase AV : 0.0 mmHg @ 8:24:33 AM AV Mean Gradient: 0.0 mmHg @ 8:24:33 AM Clinical Evaluation EBL: 5mL-10mL Procedural Details Procedure Consent Obtained. Pre-Procedure Time Out. Identified patient by full name and date of as verbalized by the patient/guarantor. Does the consent match the physician's order: Yes. Accurate & Complete Informed Consent: Yes. Inpatient/Outpatient History & Physical on Chart: Yes. If H&P is completed, is and addenduem needed: N/A; If yes, is the addendum complete: N/A. Visualize and Verify Site with Patient/Guarantor: N/A. Relevant Radiology Images available: Yes. Pre-op teaching completed and patient verbalized understanding. The risks, benefits, and alternatives of sedation and/or procedure were discussed by physician. The patient agrees to continue. Procedure started. Correct patient, site and procedure confirmed by cath team. PERRLA. Strong, equal hand accessibility lift technician bilaterally. Lungs clear x 5 lobes. IV Site on Arrival: 20 gauge in the left anticubital. IV Fluids: 0.9% NaCl at KVO. 0 mL infused prior to labeling associate. Pre Procedural Pulses: bilateral dorsalis pedis was 3+. Pre Procedural Pulses: bilateral posterior tibial was 2+. Pre Procedural Pulses: bilateral radial was 3+. Oxygen started at 2liters/min via nasal canula. right radial was prepped with chloroprep then draped in the usual sterile fashion. right groin was prepped with chloroprep then draped in the usual sterile fashion. Physician notified. Baseline sample Acquired. HR: 86 BPM. Equipment: 6F - Radial. ACIST Manifold Kit Model BT 2000. Cardiac Cath Pack. Heparinized Saline (2 units/mL), 1000 mL bag. Physician arrived. Physician scrubbed in. Immediate Pre-Procedure Time Out. Correct Patient: Yes; Correct Procedure: Yes; Correct Site: Yes; Correct Patient Position: Yes; Correct Supplies: Yes; Dried Flammable Prep: Yes; Blood Products Available: No;. Lidocaine 1% infiltrated to the right radial. Arterial access obtained. A 5 iranian TIG catheter in over wire. Multiple views taken of left coronary artery. Dr. Byrne called. Catheter redirected to the RCA. Multiple views taken of right coronary artery. Dr. Byrne arrived. Catheter out. A 5 iranian Angled Pig catheter in over wire. EDP Sample taken: LV 167/26,28; HR: 82 BPM; SpO2: 100%. LV gram performed in [place] @ 10 mL/second for a total of 30 mL. EDP Sample taken: LV 180/18,37; HR: 88 BPM; SpO2: 100%. Pullback taken: LV 173/9,32; AO 181/87(126); Mean: 0mmHg, Peak to Peak: 0mmHg, SEP: 6sec/min; HR: 88 BPM; SpO2: 100%. A TR Band was successful obtaining hemostatsis at the Right Radial artery insertion site. TR band placed. Hemostasis obtained. Post Procedure: Pulses reassessed and unchanged. PERRLA. Strong, equal hand accessibility lift technician bilaterally. No VTE prophylaxis required. Medication's Wasted: Other = versed 1 mg. Medication's Wasted: Other = fentanyl 50 mcg. Medication's Wasted: Heparin = 1000 units. Medication's Wasted: Lidocaine 1% = 18 mL. Total IV fluids: 42.7 mL. Fluoro: 3:05. Contrast type used: Visipaque 320 mgI/mL, 500 mL bottle. [id number]. Complications: none. Estimated blood loss: 5mL-10mL. Procedure completed. Patient transferred by wheelchair to 1st floor. Vital chart was stopped. Post-op diagnosis: complete 2 vessel bifircationCAD of LAD. [facility] Clinical Fraility Score: 3: Managing Well. Financial Coordinator Indications: New Onset Angina. Chest Pain Symptom Assessment: Atypical Angina. Cardiovascular Instability: No. Site: Right Radial artery Sheath Size: 6 Fr Hemostasis Method: TR Band Hemostasis Success: Successful Procedure Medications Start: 7:41 AM Stop: 7:41 AM Medication: Versed Amount: 1 mg Route: I.V. Start: 7:41 AM Stop: 7:41 AM Medication: Fentanyl Amount: 50 mcg Route: I.V. Start: 7:46 AM Stop: 7:46 AM Medication: Versed Amount: 1 mg Route: I.V. Start: 7:46 AM Stop: 7:46 AM Medication: Fentanyl Amount: 50 mcg Route: I.V. Start: 7:53 AM Stop: 7:53 AM Medication: Versed Amount: 1 mg Route: I.V. Start: 7:53 AM Stop: 7:53 AM Medication: Fentanyl Amount: 50 mcg Route: I.V. Start: 7:58 AM Stop: 7:58 AM Medication: Heparin Amount: 5000 units Route: I.V. I, the attending physician, have reviewed and verified all procedure medications. Yes, all medications given per verbal order History/Risk Factors Hypertension: Yes Dyslipidemia: Yes Diabetic Therapy: Oral Peripheral Arterial Disease (PAD): No Myocardial Infarction (GA): No Obesity: Yes Renal Disease: No Tobacco Use: Never Prior Interventions PCI: No CABG: No Valve Surgery: No Report Signatures Finalized by:Wyatt Blas MD on 03/22/2020 8:44:48 AM
[2020-03-22] MEDS: diphenhydrAMINE 50 mg Capsule PO (06:58)
--- NOTE | 2020-03-22 08:24 | W.PM.OPSUD ---
Surgery/Procedure H&P Update DATE OF PROCEDURE: March 22, 2020 DATE H&P PERFORMED: 03/15/20 H&P UPDATE INFORMATION: I have reviewed H&P completed within last 30 days, I have examined patient prior to procedure and No changes to prior documentation PREOP DIAGNOSIS: New right proximal ureteral stone PLANNED PROCEDURE: Operation Date: 03/22/20 07:00 Proposed Procedures p Cardiac Catheterization(Not Applicable) - Wyatt Blas MD PATIENT REASSESSED PRIOR TO SEDATION, WITH NO CHANGE NOTED: Yes PHYSICAL EXAM: alert, oriented x 3 and clear to auscultation bilaterally AIRWAY EVAL/ANESTHESIA PLAN: normal airway, ASA II, Risks, benefits & alternatives of sedation and/or procedure discussed and Patient agrees to continue as planned
--- NOTE | 2020-03-22 08:45 | PC.NURSE ---
patient to room from laborer tree tapping accompanied by staff TR band in place; pulse palpable no hemotoma noted; Patient oriented to room and surroundings.
[2020-03-22] MEDS: losartan 50 mg Tablet 100 MG PO (09:22)
[2020-03-22] MEDS: aspirin 81 mg EC Tablet PO (09:22)
[2020-03-22] MEDS: duloxetine 60 mg Capsule PO ×2 (09:22→18:02)
[2020-03-22] MEDS: atenolol 50 mg Tablet PO (09:22)
[2020-03-22] MEDS: FUROsemide 20 mg Tablet PO (09:22)
[2020-03-22] MEDS: tamsulosin 0.4 mg Capsule PO (09:22)
[2020-03-22] MEDS: isosorbide mononitrate ER 30 mg Tablet PO (09:22)
--- NOTE | 2020-03-22 10:52 | PC.NURSE ---
Tr band removal performed per protocol; patient tolerated well Dressing placed min bleeding; noted area at puncture is purple in color patient denies pain at site will continue to monitor
--- NOTE | 2020-03-22 11:04 | PC.NURSE ---
Patient verbally gives permission to talk to Ilir Simpson. This nurse asked patient if there was any other family that would be calling to check on her and if she would like to add a password to her account in which would have to be provided by anyone calling for information about the patient. Patient denies the need to place a password at this time.
--- NOTE | 2020-03-22 17:13 | PM.CONSULT ---
Providers/Reason For Consult Consulting Physican/Specialty*: Dr. Serna cardiothoracic surgery Reason for Consult*: Coronary artery disease with complex LAD diagonal stenosis Attending Physician: Wyatt Blas MD Primary Care Provider: Antonio Walls DO History of Present Illness History of Present Illness Amanda Simpson is a 64 year old female underwent left heart catheterization earlier this morning for suspected coronary artery disease following stress testing which revealed a small isolated anterior area of old infarction with neel-infarct ischemia consistent with LAD distribution. Dr. Blas had originally seen her after presentation with A. fib and RVR and abnormal ST changes on EKG. She has a history of a right ureteral stone and currently has a ureteral stent in place and is followed by Dr. Tran. Following the initial evaluation by Dr. Blas last week, she was placed on Plavix and scheduled for left heart catheterization today. This study revealed a complex lesions involving the LAD and diagonal at the bifurcation. I was asked reviewed the study this morning as a catheterization was being completed I have conferred with Dr. Blas. He is expected to be speaking later with Ms. Simpson today. Options include percutaneous intervention though given the complexity of the bifurcating lesion with a fairly prominent diagonal, option to consider surgical revascularization is also being entertained. She currently has been on Plavix which would necessitate delay operatively. She does wish to speak further with Dr. Blas concerning therapeutic options and also to have her involved in the decision process. Currently he is awaiting his in the car in the parking lot. I spoke only briefly with Ms. Simpson about her catheterization findings this morning as she is not had opportunity to have a detailed conversation with Dr. Blas as of yet. Presently, she is resting comfortably. She has no chest pain. Her evening meal is now being served to her. She appears to be in good spirits. Review of Systems Const: Denies: fever(s), chills, change in appetite, change in weight, fatigue or night sweats Eyes: Denies: change in vision or blurry vision ENMT: Denies: odynophagia or hoarseness Card: Reports: chest pain, palpitations, irregular heart rhythm, edema (Feet mostly), swelling of feet/ankles and dyspnea on exertion; Denies: syncope or orthopnea Resp: Denies: dyspnea or productive cough GI: Denies: abdominal pain, nausea, vomiting, dysphagia, heartburn or change in bowel habits : Denies: dysuria, urinary frequency, urinary urgency or urinary hesitancy Musc: Denies: extremity pain or extremity swelling Skin/Breast: Denies: rash Neuro: Denies: headache(s), numbness in extremities, weakness in extremities or sensory changes Psych: Reports: anxiety; Denies: depression or change in appetite Endo: Denies: polyuria, polydipsia or cold intolerance James/Lymph: Reports: easy bruising and easy bleeding; Denies: petechiae or enlarged lymph nodes Meds/Allergies Home Medications and Allergies Home Medications Medication Instructions Recorded Confirmed Last Taken Type aspirin 81 mg PO DAILY 30 Days #30 tab 02/27/20 03/22/20 03/21/20 08:00 Rx atenolol 50 mg PO DAILY 30 Days #30 tab 02/27/20 03/22/20 03/21/20 08:00 Rx atorvastatin 40 mg PO BEDTIME 30 Days #30 tab 02/27/20 03/22/20 03/21/20 22:00 Rx clopidogrel 75 mg PO DAILY 30 Days #30 tab 02/27/20 03/22/20 03/21/20 22:00 Rx 75 mg duloxetine 60 mg PO BID 30 Days #60 cap 02/27/20 03/22/20 03/21/20 22:00 Rx famotidine 20 mg PO BID 30 Days #60 tab 02/27/20 03/22/20 03/21/20 22:00 Rx isosorbide mononitrate 30 mg PO DAILY 30 Days #30 tab 02/27/20 03/22/20 03/21/20 08:00 Rx levothyroxine 100 mcg PO DAILY 30 Days #30 tab 02/27/20 03/22/20 03/22/20 05:00 Rx losartan 100 mg PO DAILY 30 Days #30 tab 02/27/20 03/22/20 03/21/20 08:00 Rx metformin 500 mg PO DAILY #30 tab 02/27/20 03/22/20 03/21/20 08:00 Rx tamsulosin 0.4 mg PO DAILY 30 Days #30 cap 02/27/20 03/22/20 03/21/20 08:00 Rx nitroglycerin 0.4 mg sublingual 0.4 mg SUBLINGUAL Q5M PRN 90 Days 03/16/20 03/22/20 Unknown Rx tablet #25 tab hydrocodone 5 mg-acetaminophen 325 1 tab PO Q8H PRN 6 Days #18 tab 03/19/20 03/22/20 Unknown Rx mg tablet furosemide 20 mg PO DAILY 03/22/20 03/22/20 03/21/20 08:00 History Allergies Allergy/AdvReac Type Severity Reaction Status Date / Time tetanus and diphtheria Allergy Unknown Verified 03/11/20 16:11 toxoids Current Medications Current Medications Generic Name Dose Route Start Last Admin Trade Name Freq PRN Reason Stop Dose Admin Aspirin 81 mg 03/22/20 09:00 03/22/20 09:22 Aspirin Ec PO 81 mg DAILY GABRIEL Administration Atenolol 50 mg 03/22/20 09:00 03/22/20 09:22 Tenormin PO 50 mg DAILY GABRIEL Administration Duloxetine HCl 60 mg 03/22/20 09:00 03/22/20 09:22 Cymbalta PO 60 mg BID GABRIEL Administration Furosemide 20 mg 03/22/20 09:00 03/22/20 09:22 Lasix PO 20 mg DAILY GABRIEL Administration Sodium Chloride 1,000 mls @ 50 mls/hr 03/22/20 06:00 03/22/20 08:40 Sodium Chloride 0.9% IV 03/23/20 01:59 Not Given .Q20H ONE Isosorbide Mononitrate 30 mg 03/22/20 09:00 03/22/20 09:22 Imdur PO 30 mg DAILY GABRIEL Administration Levothyroxine Sodium 100 mcg 03/22/20 09:00 03/22/20 09:23 Synthroid PO Not Given DAILY GABRIEL Losartan Potassium 100 mg 03/22/20 09:00 03/22/20 09:22 Cozaar PO 100 mg DAILY GABRIEL Administration Tamsulosin HCl 0.4 mg 03/22/20 09:00 03/22/20 09:22 Flomax PO 0.4 mg DAILY GABRIEL Administration PFSH Acute PFSH: Medical History Abnormal finding on EKG -Noted to have ST depression on EKG -Troponins noted, delta not calculated -Telemetry monitoring -Echo limited study but no noted gross wall motion abnormalities, G1DD -Nuclear stress testing with noted small area of old RI surrounded by moderate area of medium sized neel-infarct ischemia noted in leads to distal anterior wall suggestive of possible lesion in the LAD territory, TID ratio is elevated. Will likely need further evaluation with cardiac catheterization. Results discussed with Dr. Blas. -on aspirin, statin, Plavix, beta-kassy. We will hold anticoagulation for planned procedure today. Given non-invasive nature of procedure, do not anticipate higher than average risk for complications -BP controlled, continue to monitor vital signs Anxiety Atrial fibrillation DM type 2 (diabetes mellitus, type 2) -appears to be new onset -A1c-7.4 -accuchecks, will start on low dose metformin, encourage to monitor blood glucose once per day with log which will need to be reviewed by PCP Essential hypertension Fibromyalgia GERD (gastroesophageal reflux disease) -on famotidine Hydronephrosis Hypertension -Presented with hypertensive urgency, BP controlled -Continue to monitor vital signs -Continue losartan, Lasix, atenolol Hypothyroidism -TSH wnl -on levothyroxine Morbid obesity -BMI-48 kg/m2 -working on getting gastric bypass in [place] Right ureteral calculus Surgical History H/O: hysterectomy Family History Grandfather Family history of premature coronary artery disease Grandfather of RI at age 50 Social History Smoking and tobacco status: never smoked Alcohol intake: never Adopted: No Caregiver/support person: No Lives independently: No Household members: spouse and family Housing: House Marital status: Current occupational status: employed Current gender identity: Female Vitals/I&O/Wt Last Vital Signs Temp 98.4 F 03/22/20 06:35 Pulse 67 03/22/20 16:30 Resp 17 03/22/20 12:00 BP 141/60 03/22/20 16:30 Pulse Ox 95 03/22/20 08:45 03/22/20 03/22/20 03/22/20 06:59 14:59 22:59 Intake Total 240 / 240 Balance 240 / 240 Weight last 48 hrs Weight 236 lb Physical Exam Const: COMMON NORMALS: alert ORIENTATION/CONSCIOUSNESS: Yes oriented to person, Yes oriented to place and Yes oriented to time Neck/C-Spine: COMMON NORMALS: full ROM GENERAL: Yes normal visual inspection and Yes trachea midline CAROTIDS: No bruit Resp: COMMON NORMALS: normal respiratory effort and clear to auscultation bilaterally AUSCULTATION: clear to auscultation bilaterally Cardio: COMMON NORMALS: regular rate, regular rhythm and Peripheral pulses 2+ throughout; negative for No murmurs present (Cardio) PALPATION: normal PMI RATE: regular rate RHYTHM: regular rhythm PERIPHERAL PULSES: Peripheral pulses 2+ throughout Extremity: COMMON NORMALS: capillary refill normal NARRATIVE EXTREMITY EXAM: Trace of edema at the feet bilaterally. Neuro: COMMON NORMALS: no focal motor deficits and no sensory deficits noted SENSORIUM/ORIENTATION: Yes alert, Yes oriented to person, Yes oriented to place and Yes oriented to time Psych: COMMON NORMALS: mental status grossly normal, Normal thought process present and cooperative MOOD & AFFECT: Yes euthymic mood THOUGHT PROCESS: Normal thought process present A&P Assessment and plan (1) CAD (coronary artery disease), modoc coronary artery: Pleasant, short statured, obese 64-year-old female with diabetes mellitus and I had a rather complex LAD diagonal lesion noted on left heart catheterization performed earlier today by Dr. Blas. Note, will be conferring later today with Ms. Simpson concerning therapeutic options. I was asked to review the film this morning with Dr. Blas in case a surgical option is entertained. If after conversation, Ms. Simpson does wish to proceed with further investigation into surgical revascularization, I would recommend she be follow-up in my clinic on , March 25. We will need to schedule surgery electively with appropriate holding of Plavix prior to such a procedure. Options for percutaneous intervention will be discussed with her by Dr. Blas. We will be available as needed and appreciate Dr. Blas's input and expertise. Status: Acute Consult Attestations Medical Necessity Statement: Progressive anginal symptoms with complex LAD diagonal stenosis by left heart catheterization earlier today Time Spent in Patient Care: 16 - 35 minutes Coding Level of Care Code Acute Linen Room Houseperson for Amna Colunga Diagnoses CAD (coronary artery disease), modoc coronary artery I25.10
[2020-03-22] MEDS: sodium chloride 0.9% 1,000 ML 100 ML IV (18:02)
--- NOTE | 2020-03-22 18:22 | P.HP_ITS ---
Providers/Chief Complaint Admitting Physician: Wyatt Blas MD Primary Care Provider: Antonio Walls DO Chief Complaint: Complex coronary disease History of Present Illness Amanda Simpson is a 64 year old female past medical history significant for remote history of smoking, hypertension hyperlipidemia and diabetes mellitus recently underwent stress test when she was admitted to the hospital with A. fib RVR abnormal ST and EKG changes, chest pressure and shortness of breath. She was also noted to have ureteric stone. Stress test which turned out to be positive small area of old myocardial infarction surrounded by moderate area of medium- sized neel-infarct ischemia in the distribution of LAD, TID ratio was elevated 1.1. I was called by anesthesia as they would not like to put patient under anesthesia until she will proceed with coronary angiogram and so does the patient. Today patient was brought in and underwent left heart cath. She was found to have complex bifurcating LAD and diagonal 1 proximal lesion. Left ventricle ejection fraction was hyperdynamic 70%. There was no wall motion abnormality moderately elevated LVEDP was noted. Since patient is diabetic and it is complex proximal to mid bifurcating LAD lesion with proximal moderate size and caliber diagonal 1 stenosis we referred the patient for consultation with Dr. Serna for coronary artery bypass surgery. Tomorrow we will arrange a meeting in the hospital with Dr. Serna myself and the family as patient would like to weigh her options and preference in bstween CABG versus percutaneous intervention. Review of Systems Const: Denies: fever(s), chills, change in appetite, change in weight, fatigue or night sweats Eyes: Denies: change in vision or blurry vision ENMT: Denies: enlarged tonsils, odynophagia or hoarseness Card: Reports: chest pain, palpitations, irregular heart rhythm, edema (Feet mostly), swelling of feet/ankles and dyspnea on exertion; Denies: syncope or orthopnea Resp: Denies: dyspnea or productive cough GI: Denies: abdominal pain, nausea, vomiting, dysphagia, heartburn or change in bowel habits : Denies: dysuria, urinary frequency, urinary urgency or urinary hesitancy Musc: Denies: extremity pain or extremity swelling Skin/Breast: Denies: rash Neuro: Denies: headache(s), numbness in extremities, weakness in extremities or sensory changes Psych: Reports: anxiety; Denies: depression or change in appetite Endo: Denies: polyuria, polydipsia or cold intolerance James/Lymph: Reports: easy bruising and easy bleeding; Denies: petechiae or enlarged lymph nodes Medications/Allergies Home Medications Medication Instructions Recorded Confirmed Last Taken Type aspirin 81 mg PO DAILY 30 Days #30 tab 02/27/20 03/22/20 03/21/20 08:00 Rx atenolol 50 mg PO DAILY 30 Days #30 tab 02/27/20 03/22/20 03/21/20 08:00 Rx atorvastatin 40 mg PO BEDTIME 30 Days #30 tab 02/27/20 03/22/20 03/21/20 22:00 Rx clopidogrel 75 mg PO DAILY 30 Days #30 tab 02/27/20 03/22/20 03/21/20 22:00 Rx 75 mg duloxetine 60 mg PO BID 30 Days #60 cap 02/27/20 03/22/20 03/21/20 22:00 Rx famotidine 20 mg PO BID 30 Days #60 tab 02/27/20 03/22/20 03/21/20 22:00 Rx isosorbide mononitrate 30 mg PO DAILY 30 Days #30 tab 02/27/20 03/22/20 03/21/20 08:00 Rx levothyroxine 100 mcg PO DAILY 30 Days #30 tab 02/27/20 03/22/20 03/22/20 05:00 Rx losartan 100 mg PO DAILY 30 Days #30 tab 02/27/20 03/22/20 03/21/20 08:00 Rx metformin 500 mg PO DAILY #30 tab 02/27/20 03/22/20 03/21/20 08:00 Rx tamsulosin 0.4 mg PO DAILY 30 Days #30 cap 02/27/20 03/22/20 03/21/20 08:00 Rx nitroglycerin 0.4 mg sublingual 0.4 mg SUBLINGUAL Q5M PRN 90 Days 03/16/20 03/22/20 Unknown Rx tablet #25 tab hydrocodone 5 mg-acetaminophen 325 1 tab PO Q8H PRN 6 Days #18 tab 03/19/20 03/22/20 Unknown Rx mg tablet furosemide 20 mg PO DAILY 03/22/20 03/22/20 03/21/20 08:00 History Allergies Allergy/AdvReac Type Severity Reaction Status Date / Time tetanus and diphtheria Allergy Unknown Verified 03/11/20 16:11 toxoids PFSH Acute PFSH: Medical History Abnormal finding on EKG -Noted to have ST depression on EKG -Troponins noted, delta not calculated -Telemetry monitoring -Echo limited study but no noted gross wall motion abnormalities, G1DD -Nuclear stress testing with noted small area of old [place] surrounded by moderate area of medium sized neel-infarct ischemia noted in leads to distal anterior wall suggestive of possible lesion in the LAD territory, TID ratio is elevated. Will likely need further evaluation with cardiac catheterization. Results discussed with Dr. Blas. -on aspirin, statin, Plavix, beta-kassy. We will hold anticoagulation for planned procedure today. Given non-invasive nature of procedure, do not anticipate higher than average risk for complications -BP controlled, continue to monitor vital signs Anxiety Atrial fibrillation DM type 2 (diabetes mellitus, type 2) -appears to be new onset -A1c-7.4 -accuchecks, will start on low dose metformin, encourage to monitor blood glucose once per day with log which will need to be reviewed by PCP Essential hypertension Fibromyalgia GERD (gastroesophageal reflux disease) -on famotidine Hydronephrosis Hypertension -Presented with hypertensive urgency, BP controlled -Continue to monitor vital signs -Continue losartan, Lasix, atenolol Hypothyroidism -TSH wnl -on levothyroxine Morbid obesity -BMI-48 kg/m2 -working on getting gastric bypass in [place] Right ureteral calculus Surgical History H/O: hysterectomy Family History Grandfather Family history of premature coronary artery disease Grandfather of [place] at age 50 Social History Smoking and tobacco status: never smoked Alcohol intake: never Adopted: No Caregiver/support person: No Lives independently: No Household members: spouse and family Housing: House Marital status: Current occupational status: employed Current gender identity: Female Vitals/I&O/Wt Last Vital Signs Temp 98.4 F 03/22/20 06:35 Pulse 67 03/22/20 16:30 Resp 17 03/22/20 12:00 BP 141/60 06/22/20 16:30 Pulse Ox 95 03/22/20 08:45 03/22/20 03/22/20 03/22/20 06:59 14:59 22:59 Intake Total 240 / 240 360 / 600 Balance 240 / 240 360 / 600 Weight last 48 hrs Weight 236 lb Physical Exam Narrative: EXAM NARRATIVE: GENERAL: Patient is alert, awake and oriented x3. NECK: No jugular vein distension. HEENT: No cyanosis. No icterus. No pallor. HEART: Regular S1 and S2. No murmur, rub or gallop. LUNGS: Clear to auscultate bilaterally. ABDOMEN: Soft, nontender and nondistended. Positive bowel sounds. No guarding, rebound or tenderness. CENTRAL NERVOUS SYSTEM: Grossly nonfocal. EXTREMITIES: Lower extremities without edema bilaterally. Const: COMMON NORMALS: alert Resp: COMMON NORMALS: clear to auscultation bilaterally AUSCULTATION: clear to auscultation bilaterally Neuro: SENSORIUM/ORIENTATION: Yes alert A&P Assessment and plan (1) CAD (coronary artery disease), [place] coronary artery: Patient has complex proximal to mid bifurcating LAD disease and proximal diagonal 1 stenosis. Currently she is stable. She has been loaded with Plavix in the past before she can proceed with CABG if heart care team and patient family agrees. Patient admits to chest pressure at rest and shortness of breath along with chest pain upon mild exertion. She lives 30 miles from here. She is not comfortable in going home today. Tomorrow we have arranged a meeting with Dr. Serna myself and her . Further plan regarding CABG versus PCI will be confirmed tomorrow. Based upon that we will proceed. I will add isosorbide mononitrate to the regimen. Continue aspirin statin beta-kassy ARB. Add amlodipine for blood pressure Status: Acute (2) Atrial fibrillation: In sinus rhythm. Continue full dose aspirin Status: Acute (3) Essential hypertension: Not well controlled I will add amlodipine to the regimen Status: Acute Attestations Medical Necessity Statement*: Patient requires continuation of hospitalization for above defined care. Coding Level of Care Code New Pt Acute Claims Agent Right Of Way for Chg Fwd Patient Type New Exam Expanded Problem Focused Medical Decision Making Moderate Complexity Diagnoses CAD (coronary artery disease), [place] coronary artery I25.10 Atrial fibrillation I48.91 Essential hypertension I10
[2020-03-22] MEDS: amlodipine 5 mg Tablet PO (19:09)
--- NOTE | 2020-03-22 19:16 | PC.NURSE ---
spoke with Dr monahan about patient being diabetic with no coverage or checks ordered new instructions for SS novolog and accu checks given
[2020-03-22 20:09] LABS: Glucose Point of Care 120 mg/dL (70-110)
--- NOTE | 2020-03-22 20:30 | PC.NURSE ---
Received report from TRUMAN Rutherford. Pt sitting in bed talking on the phone. VSS. Right radial site c/d/i. No complaints or needs at this time. See nursing assessment.
[2020-03-22] MEDS: atorvastatin 40 mg Tablet PO (20:39)
[2020-03-22] MEDS: HYDROcodone-acetaminophen 5-325 mg Tablet 1 TAB PO (23:35)
[2020-03-23 04:00] VITALS: BP 127/63; PULSE 82; RESP 14; TEMP 36.7; O2SAT 91
[2020-03-23 06:16] LABS: Glucose Point of Care 101 mg/dL (70-110)
[2020-03-23 06:52] LABS: Quest SARS-CoV-2 RNA NOT DETECTED (NOT DETECTED)
--- NOTE | 2020-03-23 06:59 | PC.NURSE ---
PT HAD AN UNEVENTFUL NIGH. PT STATED THAT THEY FEEL MORE RESTED. NO EVENTS ON TELE. REPORT WAS GIVEN TO ON COMING NURSE.
[2020-03-23 08:00] VITALS: BP 127/73; PULSE 80; RESP 22; TEMP 36.6; O2SAT 95
[2020-03-23 09:18] VITALS: BP 127/73
[2020-03-23] MEDS: atenolol 50 mg Tablet PO (09:18)
[2020-03-23] MEDS: levothyroxine 100 mcg Tablet PO (09:18)
[2020-03-23] MEDS: FUROsemide 20 mg Tablet PO (09:18)
[2020-03-23] MEDS: tamsulosin 0.4 mg Capsule PO (09:18)
[2020-03-23] MEDS: losartan 50 mg Tablet 100 MG PO (09:18)
[2020-03-23] MEDS: isosorbide mononitrate ER 30 mg Tablet PO (09:18)
[2020-03-23] MEDS: aspirin 81 mg EC Tablet PO (09:19)
[2020-03-23] MEDS: amlodipine 5 mg Tablet PO (09:19)
[2020-03-23] MEDS: duloxetine 60 mg Capsule PO (09:19)
[2020-03-23 12:00] VITALS: BP 118/61; PULSE 74; RESP 16; TEMP 36.8; O2SAT 94
[2020-03-23 12:00] LABS: Glucose Point of Care 109 mg/dL (70-110)
--- NOTE | 2020-03-23 13:07 | PC.CHAP ---
Pastoral Care Encounter/Spiritual Assessment Type of Contact [] Declined steel pourer helper visit [] Patient/Family/Request visit [] Outpatient visit [] Follow-up visit [] Physician referral [] Code/Alert [x] Routine visit [] Staff referral [] Actively dying [] Patient sleeping [] Family support [] [] Out of room [] Palliative care [] [x] Receiving care in room [] Pre-surgical visit [] Trauma [] Long length of stay [] ICU visit [] Other: Relational/Emotional Strength [x] Patient feels connected with others/family/visitors/staff [] Distress [] Loneliness/isolation [] Abandonment Spirituality of Patient [x] Person of Adele [] Attends Hoahaoism of their Adele [x] Believes in Prayer [] Reads Bible or Temple materials [] There are Spiritual issues to be addressed Food General Manager Interventions [x] Prayer [x] Active listening [x] Non-anxious presence [x] Spiritual/emotional support [] Crisis/trauma care [x] Spiritual counseling [] Bereavement support [] Provided bereavement packet [] Provided Bible/devotional materials [] Provided toy/stuffed animal, coloring book to patient or family member [] Provided Communion [] Anointing/[place] [] Salvation [x] Completed spiritual assessment [] Other: Impact on Illness or Injury [] Angry [] Fearful [] Anxious [] Often cries [] Exhaustion [] Unable to work [] Unable to attend holiness [] Unable to walk/stand [] Unable to read [] Unable to drive [] Unable to eat/drink [] Unable to sleep [] Unable to be with family [] Patient intubated [] Other: Summary Her will be later they will talk to doctor about two proceedures 1 Stents, 2 a by pass procedure, good attitude Time spent with patient 10 mins
[2020-03-23 16:00] VITALS: BP 112/53; PULSE 69; RESP 19; TEMP 36.9; O2SAT 94
[2020-03-23 16:58] LABS: Glucose Point of Care 131 mg/dL (70-110)
[2020-03-23 17:13] VITALS: BP 112/53; PULSE 69; RESP 19; TEMP 36.9; O2SAT 94
--- NOTE | 2020-03-23 18:44 | P.DS_ITS ---
Discharge Providers Date of Admission: 03/22/20 08:39 Date of Discharge: March 23, 2020 Attending Provider at Admission: Wyatt Blas MD Attending Provider at Discharge: Wyatt Blas MD Primary Care Provider: Antonio Walls DO Diagnoses at Discharge Discharge Diagnosis (1) CAD (coronary artery disease), [place] coronary artery: Status: Acute (2) Atrial fibrillation: Status: Acute (3) Essential hypertension: Status: Acute Reason for Visit Reason for Visit: Complex coronary disease Hospital Course Discharge Summary: Amanda Simpson is a 64 year old female past medical history significant for remote history of smoking, hypertension hyperlipidemia and diabetes mellitus recently underwent stress test when she was admitted to the hospital with A. fib RVR abnormal ST and EKG changes, chest pressure and shortness of breath. She was also noted to have ureteric stone. Stress test which turned out to be positive small area of old myocardial infarction surr ounded by moderate area of medium-sized neel-infarct ischemia in the distribution of LAD, TID ratio was elevated 1.1. I was called by anesthesia as they would not like to put patient under anesthesia until she will proceed with coronary angiogram and so does the patient. Today patient was brought in and underwent left heart cath. She was found to have complex bifurcating LAD and diagonal 1 proximal lesion. Left ventricle ejection fraction was hyperdynamic 70%. There was no wall motion abnormality moderately elevated LVEDP was noted. Since patient is diabetic and it is complex proximal to mid bifurcating LAD lesion with proximal moderate size and caliber diagonal 1 stenosis we referred the patient for consultation with Dr. Serna for coronary artery bypass surgery. Dr. Serna and myself (patient and her today. We have discussed in length regarding risk-benefit and alternatives for CABG but is in her situation is better option. Patient and her would like to think over it and they will let us know. Currently she is stable denies any chest pain. We will discharge her home as she lives 35 minutes from here. Patient has been advised in case of chest pain not relieved with 2 nitroglycerin she should call 911 and come to ER. Patient has been advised if she feels more frequent chest pain she should come back to the hospital. She has been advised to call us back tomorrow to let us know what she would like to proceed with either PCI or CABG. Currently she denies chest pain out of your shortness of breath PND orthopnea. Her medicines were optimized. We will discontinue Plavix if she will be going for CABG. I did discuss the case with Dr. Tran as patient has obstructive uropathy. Dr. Tran explained that we should proceed with intervention or C ABG first as her chances of developing obstructive uropathy in the presence of ureteral stent or infection is low and it can be done 20 to 25 days after the procedure. Physical Exam Narrative: EXAM NARRATIVE: GENERAL: Patient is alert, awake and oriented x3. NECK: No jugular vein distension. HEENT: No cyanosis. No icterus. No pallor. HEART: Regular S1 and S2. No murmur, rub or gallop. LUNGS: Clear to auscultate bilaterally. ABDOMEN: Soft, nontender and nondistended. Positive bowel sounds. No guarding, rebound or tenderness. CENTRAL NERVOUS SYSTEM: Grossly nonfocal. EXTREMITIES: Lower extremities without edema bilaterally. . Discharge Data Data Completed and Pending: Completed Studies During Hospitalization Category Date Time Status PREPARATION OPERATOR request for service Routin e Exams 03/22/20 06:00 Completed Labs from last 24 hours 03/23/20 03/23/20 03/23/20 16:55 11:51 06:13 POC Glucose 131 109 101 SARS-CoV-2 RNA (RT -PCR) 03/22/20 03/18/20 20:01 09:17 POC Glucose 120 SARS-CoV-2 RNA (RT -PCR) Not detected Vitals: Last Vital Signs Temp 98.4 F 03/23/20 17:13 Pulse 69 03/23/20 17:13 Resp 19 H 03/23/20 17:13 BP 112/53 03/23/20 17:13 Pulse Ox 94 03/23/20 17:13 Discharge Plan Discharge Patient Disposition: Home, Self-Care Condition: Stable Prescriptions: New nitroglycerin 0.4 mg tablet, sublingual 0.4 mg SUBLINGUAL Q5M Qty: 30 RF: 2 Continued nitroglycerin [Nitrostat] 0.4 mg tablet, sublingual 0.4 mg SUBLINGUAL Q5M PRN (Reason: chest pain) 90 Days Qty: 25 RF: 3 hydrocodone-acetaminophen [[place]] 5-325 mg tablet 1 tab PO Q8H PRN (Reason: Renal colic) 6 Days Qty: 18 RF: 0 atorvastatin 40 mg Tablet 40 mg PO BEDTIME 30 Days Qty: 30 RF: 0 isosorbide mononitrate 30 mg Tablet Extended Release 24 Hr 30 mg PO DAILY 30 Days Qty: 30 RF: 0 famotidine 20 mg Tablet 20 mg PO BID 30 Days Qty: 60 RF: 0 tamsulosin 0.4 mg Capsule 0.4 mg PO DAILY 30 Days Qty: 30 RF: 0 levothyroxine 100 mcg tablet 100 mcg PO DAILY 30 Days Qty: 30 RF: 0 losartan 100 mg tablet 100 mg PO DAILY 30 Days Qty: 30 RF: 0 atenolol 50 mg tablet 50 mg PO DAILY 30 Days Qty: 30 RF: 0 duloxetine 60 mg capsule,delayed release(DR/EC) 60 mg PO BID 30 Days Qty: 60 RF: 0 metformin 500 mg tablet 500 mg PO DAILY Qty: 30 RF: 0 furosemide 20 mg Tablet 20 mg PO DAILY RF: 0 Changed aspirin 81 mg Tablet,Delayed Release (Dr/Ec) 325 mg PO DAILY 30 Days Qty: 30 RF: 0 Discontinued clopidogrel 75 mg Tablet 75 mg PO DAILY 30 Days Qty: 30 RF: 0 Discharge Orders: Discharge Order (Routine); Ordered 03/23/20 Ordered By: Wyatt Blas Referrals: Tamara Melendez FNP [Nurse Practitioner] - 1 week ([facility] – [place] [facility] will be calling to schedule a post procedure followup with MACY Winn to be seen in 1 week. If you don't hear from them by tomorrow afternoon, please give them a call. Thank you) Patient Instructions: Left Heart Catheterization (DC) Activity Restrictions/Additional Instructions: Please call us in a day or 2 once we decide regarding coronary artery bypass surgery versus PCI to schedule the procedure. If you notice chest pain, take nitroglycerin however if chest pain does not relieved with 2 nitroglycerin call 911 and come to emergency room. Call Dr. Blas's office if you have any question. Tamara Melendez cardiology nurse practitioner will be seeing you in 7 days. Discharge Date/Time: 03/23/20 18:25 Discharge Attestations Time Spent in Discharge Care*: greater than 30 min Status at Discharge: Cognitive status at discharge: cognitively intact , Behavioral status at discharge: cooperative , Quality Metrics Clinical Quality Measures During this hospital stay, did patient experience: None Coding Level of Care Code New Pt Acute Safety Tech for Chg Fwd Patient Type New History Detailed Exam Detailed Medical Decision Making Moderate Complexity Diagnoses CAD (coronary artery disease), [place] coronary artery I25.10 Atrial fibrillation I48.91 Essential hypertension I10
== END 2020-03-23 18:25 | disposition home or self-care (01) ==
LOC: CSU 08:41
PROVIDERS: Admitting Provider Internal Medicine Cardiovascular Disease; PCP Family Medicine; Visit Provider Internal Medicine Cardiovascular Disease
DX: I25.10 Atherosclerotic heart disease of native coronary artery without angina pectoris (principal); I48.91 Unspecified atrial fibrillation; I10 Essential (primary) hypertension; Z87.891 Personal history of nicotine dependence; E78.5 Hyperlipidemia, unspecified; E11.9 Type 2 diabetes mellitus without complications; Z79.02 Long term (current) use of antithrombotics/antiplatelets; Z79.82 Long term (current) use of aspirin; Z79.84 Long term (current) use of oral hypoglycemic drugs; F41.9 Anxiety disorder, unspecified; M79.7 Fibromyalgia; E03.9 Hypothyroidism, unspecified; E66.01 Morbid (severe) obesity due to excess calories; Z68.42 Body mass index [BMI] 45.0-49.9, adult
CPT/HCPCS: 12345; 36415; 36416; 82962; 87635; 93452; C1769; C1887; C1894; G0378; J1644; J2001; J2250; J3010; J7030; Q0163; Q9967

== ENCOUNTER → 2020-03-25 16:07 | Outpatient (BNVA) | payer OTHER, SELFPAY | PROVIDERS: PCP Family Medicine; Visit Provider Thoracic Surgery (Cardiothoracic Vascular Surgery) | DX: I25.10 Atherosclerotic heart disease of native coronary artery without angina pectoris (principal); I10 Essential (primary) hypertension; N20.1 Calculus of ureter | CPT/HCPCS: 80048 ==

== ENCOUNTER 2020-04-01 09:57 | Outpatient (CLI) | payer OTHER, SELFPAY ==
--- NOTE | 2020-04-01 10:15 | USCV_ITS ---
Amanda Simpson Age: 64 Gender: F : 1955 Exam Date: 04/01/2020 10:19 Ordering Phys: Joey Serna MD (Andy) ([email or web address]) Technologist: Carmen Owens Exam Location: [facility] [place] Indication: PRE CABG RIGHT LEFT LOWER EXTREMITY Diameter Diameter (cm) (cm) 0.63 High Thigh 0.76 0.35 Mid Thigh 0.59 0.41 Above Knee 0.31 0.34 Below Knee 0.39 0.28 Mid Calf 0.18 0.24 Ankle 0.30 RIGHT LEFT Findings The veins are found to be easily compressible Conclusions Patent normal caliber veins bilaterally in the lower extremities with no evidence of thrombosis Venous dimensions, as mentioned above Dr Bautista Yoon MD [facility] (Electronically Signed) Final Date: 01 April 2020 19:46 S
== END 2020-04-01 09:58 | disposition home or self-care (01) ==
LOC: RAD 09:59
PROVIDERS: PCP Family Medicine; Visit Provider Thoracic Surgery (Cardiothoracic Vascular Surgery)
DX: M79.89 Other specified soft tissue disorders (principal); Z95.1 Presence of aortocoronary bypass graft
CPT/HCPCS: 93970

== ENCOUNTER 2020-04-12 15:00 | Inpatient (IN) | payer OTHER, SELFPAY ==
--- NOTE | 2020-04-07 09:15 | XRR_ITS ---
PROCEDURE INFORMATION: Exam: XR Chest, 2 Views Exam date and time: 04/07/2020 11:15 AM Age: 64 years old Clinical indication: Pre-operative exam; Cardiovascular screening and respiratory screening exam; Additional info: Preop for cabg TECHNIQUE: Imaging protocol: XR of the chest Views: 2 views. COMPARISON: CR XR chest 1V portable [id number] 02/24/2020 6:02 PM FINDINGS: Lungs: Lungs are well aerated without a focal area of consolidation. Pleural space: Unremarkable. No pleural effusion. No pneumothorax. Heart/Mediastinum: The cardiac silhouette appears enlarged, some of which is magnification related to the AP projection. Bones/joints: Unremarkable. Soft tissues: Soft tissue density in the right cardio phrenic angle likely fat. XR/XR chest 2V* [id number] IMPRESSION: 1. Lungs are well aerated without a focal area of consolidation. 2. Soft tissue density in the right cardio phrenic angle likely fat. Stable.
[2020-04-07 10:39] LABS: Alanine Aminotransferase 29 U/L (0-33); Albumin Level 4.3 g/dL (3.5-5.2); Alkaline Phosphatase 82 IU/L (35-105); Anion Gap 13.8 (5-19); Aspartate Amino Transferase 16 U/L (0-32); Blood Urea Nitrogen 14 mg/dL (8-23); Calcium 9.7 mg/dL (8.5-10.5); Carbon Dioxide 29 mmol/L (22-29); Chloride 102 mmol/L (98-107); Free T4 Free Thyroxine 1.26 ng/dL (0.82-1.77); Globulin 2.9 g/dL (1.3-4.6); Glomerular Filtration Rate 72.7 mL/min (90-130); Glucose 124 mg/dL (65-115); Osmolality Calculated 290 mOsm/kg (285-295); Potassium 3.8 mmol/L (3.5-5.1); Sodium 141 mmol/L (136-145); Thyroid Stimulating Hormone 2.55 uIU/mL (0.27-4.20); Total Bilirubin 0.7 mg/dL (0.15-1.2); Total Protein 7.2 g/dL (6.6-8.7)
[2020-04-07 10:45] LABS: Basophils % 0.4 %; Eosinophils # 0.2 10^3/uL (0.0-0.8); Hematocrit 41.8 % (37.0-47.0); Hemoglobin 12.8 g/dL (11.5-15.3); Lymphocytes # 1.9 10^3/uL (0.8-4.8); Lymphocytes % 25.7 %; Mean Corpuscular HGB Conc 30.6 g/dL (30.0-36.0); Mean Corpuscular Hemoglobin 29.6 pg (28.0-34.0); Mean Corpuscular Volume 96.8 fL (81-99); Mean Platelet Volume 10.4 fL (7.4-10.4); Monocytes # 0.6 10^3/uL (0.2-0.9); Monocytes % 7.8 %; Neutrophils # 4.8 10^3/uL (1.8-7.7); Neutrophils % 63.8 %; Nucleated Red Blood Cells % 0 %; Platelet Count 360 10^3/cmm (130-400); Red Blood Count 4.32 10^6/uL (4.1-5.3); Red Cell Distribution Width 14.9 % (12.1-15.1); White Blood Count 7.5 10^3/uL (4.0-10.0)
--- NOTE | 2020-04-07 10:47 | ANES.PREANE2 ---
Pre-Anesthetic Assessment Pre-Anesthetic Assessment: Height/Weight: Height 1.52 m Weight 111.584 kg Preop Diagnosis: Coronary artery disease Proposed Procedure: Operation Date: 04/12/20 07:00 Proposed Procedures p CABG(Not Applicable) - Joey Serna MD Social: Social History: No alcohol and No tobacco Exam: Pre-Anes Outpt Exam: alert, oriented x 3, clear to auscultation bilaterally and regular rate & rhythm Airway: Submandibular: WNL Cervical ROM: WNL MP: 2 Dentition: Other (teeth ok) History/ROS: No significant history except as noted Pulmonary: Pulmonary: BERGERON and Sleep apnea CV/HEM: CV/HEM: Afib (h/o ), CAD and HTN : Comments: stones, stent in place Hepatic: Hepatic: None reported GI: GI: GERD (not well controlled) Metabolic: Metabolic: DM, Hyperlipidemia, Morbid obesity and Thyroid Musc/skel: Musc/skel: Lower Back Pain Neuropsych: Neuropsych: Anxiety and Depression Anesthetic Plan: ASA status: 4 Anesthesia: Anesthesia Evaluation and General Risk of > 500 ml blood loss (7ml/kg in children): Yes, adequate IV access and fluids planned PFSH Anesthesia PFSH: Medical History Abnormal finding on EKG -Noted to have ST depression on EKG -Troponins noted, delta not calculated -Telemetry monitoring -Echo limited study but no noted gross wall motion abnormalities, G1DD -Nuclear stress testing with noted small area of old [place] surrounded by moderate area of medium sized neel-infarct ischemia noted in leads to distal anterior wall suggestive of possible lesion in the LAD territory, TID ratio is elevated. Will likely need further evaluation with cardiac catheterization. Results discussed with Dr. Blas. -on aspirin, statin, Plavix, beta-kassy. We will hold anticoagulation for planned procedure today. Given non-invasive nature of procedure, do not anticipate higher than average risk for complications -BP controlled, continue to monitor vital signs Anxiety Atrial fibrillation DM type 2 (diabetes mellitus, type 2) -appears to be new onset -A1c-7.4 -accuchecks, will start on low dose metformin, encourage to monitor blood glucose once per day with log which will need to be reviewed by PCP Essential hypertension Fibromyalgia GERD (gastroesophageal reflux disease) -on famotidine Hydronephrosis Hypertension -Presented with hypertensive urgency, BP controlled -Continue to monitor vital signs -Continue losartan, Lasix, atenolol Hypothyroidism -TSH wnl -on levothyroxine Morbid obesity -BMI-48 kg/m2 -working on getting gastric bypass in [place] Right ureteral calculus Surgical History H/O: hysterectomy Family History Grandfather Family history of premature coronary artery disease Grandfather of [place] at age 50 Social History Smoking and tobacco status: never smoked Alcohol intake: never Adopted: No Caregiver/support person: No Lives independently: No Household members: spouse and family Housing: House Marital status: Current occupational status: employed Current gender identity: Female Data Anesthesia CBC & Chem 7: 04/07/20 09:45 04/07/20 09:45 Other Labs: Laboratory Results - last 48 hr 04/07/20 04/07/20 09:45 09:45 WBC 7.5 RBC 4.32 Hgb 12.8 Hct 41.8 MCV 96.8 MCH 29.6 MCHC 30.6 RDW 14.9 Plt Count 360 MPV 10.4 Neut % (Auto) 63.8 Lymph % (Auto) 25.7 [place] % (Auto) 7.8 Eos % (Auto) 2.0 Baso % (Auto) 0.4 Neut # (Auto) 4.8 Lymph # (Auto) 1.9 [place] # (Auto) 0.6 Eos # (Auto) 0.2 Baso # (Auto) 0.0 Nucleated RBC % (auto) 0 Nucleated RBCs # 0.0 Sodium 141 Potassium 3.8 Chloride 102 Carbon Dioxide 29 Anion Gap 13.8 BUN 14 Creatinine 0.8 GFR Calculation 72.7 L Glucose 124 H Calculated Osmolality 290 Calcium 9.7 Total Bilirubin 0.7 AST 16 ALT 29 Alkaline Phosphatase 82 Total Protein 7.2 Albumin 4.3 Globulin 2.9 TSH 2.55 Free T4 1.26 Cardiac Studies: No Data to Display
[2020-04-07 10:56] LABS: INR 0.97 (0.8-1.2)
[2020-04-07 10:57] LABS: Partial Thromboplastin Time 33.1 SECONDS (23.9-36.7)
[2020-04-07 11:08] LABS: Urine Appearance Cloudy (CLEAR); Urine Color Red (Yellow)
[2020-04-07 11:09] LABS: Add Urine Culture? Yes; Add Urine Microscopic? YES; Bacteria Urine 1+; Bilirubin Urine 1+ (NEGATIVE); Blood Urine 3+ (Negative); Glucose Urine UA Norm (Normal); Ketones Urine 1+ (Negative); Leukocyte Esterase Urine 2+ (Negative); Nitrate Urine Positive (Negative); Protein Urine 3+ (Negative); RBC Urine >100 /hpf (0-2); Urobilinogen Urine Norm (Negative); WBC Urine 15-25 /hpf (0-5)
[2020-04-12] VITALS (42 sets, daily range): BP systolic 79–131; BP diastolic 8–90; PULSE 80–93; RESP 12–23; TEMP 36.5–37.1; O2SAT 97–100; BMI 48.0
--- NOTE | 2020-04-12 | XR_ITS ---
WS: [id number] CHEST XRAY TECHNIQUE: Portable chest. CLINICAL INFORMATION: IN OR, POST CABG COMPARISON: April 07, 2020 FINDINGS: Sternotomy. Left chest tube. No visualized pneumothorax. Postoperative recent CABG. Enteric tube with tip below the diaphragm. Endotracheal tube with tip above the hetal. Heart: Cardiomegaly with moderate pulmonary vascular congestion. [place] catheter. Right IJ sheath. Lungs: Moderate pulmonary vascular congestion. No focal pneumonia. Bones: Normal visualized bony structures. XR/XR chest 1V portable [id number] IMPRESSION: 1. Postoperative changes CABG with cardiomegaly and moderate pulmonary vascula r congestion. 2. Left chest tube in place. No pneumothorax. 3. Additional tubes and lines as described above.
--- NOTE | 2020-04-12 | XR_ITS ---
WS: [id number] INTRAOPERATIVE TECHNIQUE: 2 Spot fluoroscopic images for intraoperative purposes. FLUOROSCOPY TIME: 14.0 seconds CLINICAL INFORMATION: RECOVER NEEDLE IN CHEST/LOCATION AND REMOVAL COMPARISON: None. FINDINGS: Fluoroscopy used for intraoperative needle localization. XR/XR chest 1V [id number] IMPRESSION: Images obtained for intraoperative purposes.
--- NOTE | 2020-04-12 | SCC_ITS ---
14.0 seconds of fluoroscopic guidance, for a cumulative dose of 5.14 mGy, was provided to Dr. Serna by the radiology department. C-arm images of the chest were saved for the patient's permanent record. [facility]
[2020-04-12 05:22] LABS: Glucose Point of Care 120 mg/dL (70-110)
[2020-04-12] MEDS: sodium chloride 0.9% 1,000 ML 30 ML IV (05:22)
--- NOTE | 2020-04-12 05:58 | W.PM.OPSUD ---
Surgery/Procedure H&P Update DATE OF PROCEDURE: April 12, 2020 DATE H&P PERFORMED: 03/25/20 H&P UPDATE INFORMATION: I have reviewed H&P completed within last 30 days, I have examined patient prior to procedure and No changes to prior documentation CHANGES TO PREVIOUS DOCUMENTATION: I have again counseled with Ms. Simpson and her who is present at bedside. Recommendations for bypass surgery frankly discussed. The risk of surgery also very carefully reviewed including her increased risk related to her obesity, diabetes mellitus, ample breast tissue, as well as ureteral stent secondary to nephrolithiasis with resulting urinalysis reports. We have placed her on Levaquin 500 mg daily for 4 doses after conversation with Dr. Tran. She has completed these. She and her are eager to proceed with surgery. PREOP DIAGNOSIS: Coronary artery disease PRIMARY INDICATION FOR PROCEDURE: High-grade, highly symptomatic complex LAD diagonal stenosis, after review by Dr. Blas, not felt to be ideal for percutaneous intervention PLANNED PROCEDURE: Operation Date: 04/12/20 07:00 Proposed Procedures p CABG(Not Applicable) - Joey Serna MD
[2020-04-12] MEDS: cefUROXime 1,500 MG in sodium chloride 0.9% (plus) 50 ML 100 MG IV ×2 (08:00→14:11)
[2020-04-12] MEDS: sodium bicarbonate 1 mEq/mL SDV 50mL 0.7 MEQ IRRIGATION (08:45)
[2020-04-12] MEDS: vancomycin 1,000 MG SDV 3000 MG IRRIGATION (08:45)
[2020-04-12] MEDS: heparin, porcine 1,000 unit/mL INJ 10 mL 1750 UNIT IRRIGATION (08:45)
--- NOTE | 2020-04-12 16:41 | ECG_ITS ---
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 Measurements Intervals [place] Rate: 83 P: -82 [place]: 165 QRS: -32 QRSD: 171 T: 18 QT: 483 QTc: 570 Interpretive Statements ELECTRONIC ATRIAL PACEMAKER ELECTRONIC VENTRICULAR PACEMAKER ABNORMAL RHYTHM ECG Compared to ECG 03/03/2020 19:25:52 Sinus rhythm no longer present T-wave abnormality no longer present Electronically Signed On 04-13-2020 19:18:23 CDT by Wyatt Blas M.D. [id number]
[2020-04-12] MEDS: fentaNYL 50 mcg/mL INJ 2mL IVP ×3 (17:00→23:48)
[2020-04-12] MEDS: albumin 12.5 GM/250 ML VIAL IV ×4 (17:00→20:48)
[2020-04-12] MEDS: propofol 1,000 MG/100 ML INJ 3.3 MG IV (17:15)
[2020-04-12 17:16] LABS: ABG PCO2 40.1 mmHg (35-45); ABG PH Result 7.32 (7.35-7.45); Arterial Blood Gas Hematocrit 37.9 % (37-47); Blood Gas Sample Site Not specified; Blood Gas Sample Type Arterial; Blood Gas Tidal Volume 0.45; HCO3 ABG 20.7 mmol/L (22-26); Oxygen Device VENT
--- NOTE | 2020-04-12 17:24 | PM.OP ---
Operative Report Date of procedure: April 12, 2020 Pre-op Diagnosis: Complex LAD/diagonal stenosis Post-op diagnosis: same Procedure Done: 1. Coronary artery bypass grafting x2 (1 artery and 1 vein) utilizing in situ left internal mammary artery to the left anterior descending artery and reverse of his vein graft aorta to the diagonal artery. #2. Endoscopic saphenous vein harvesting of the right greater saphenous vein from the right thigh. #3. Placement of right femoral arterial line Pathology: none sent Surgeon: Joey Serna Anesthesia: General Complications: None Findings: Target vessels were of adequate size. Internal mammary artery and saphenous vein graft were of good quality. Her short stature, obesity, and compact nature presented a challenge for adequate exposure for grafting. Condition: critical Disposition: ICU Brief History: Ms. Simpson is a pleasant, short statured, obese, diabetic female with a complex LAD diagonal stenosis after undergoing left heart catheterization on March 22 of this year by Dr. Blas department evaluation for suspected coronary artery disease. She had a progressive history of dyspnea with only modest exertion as well as some chest discomfort. She also has a ureteral stent in place for nephrolithiasis and is being followed with Dr. Tran. Anesthesia was uncomfortable with proceeding with plan for stent removal and stone extraction with known coronary artery disease and it was recommended that bypass surgery be completed first. This was given coordinated with Dr. Blas and Dr. Tran. We did elect to utilize prophylaxis with Levaquin because of her most recent urinalysis in addition to our routine use of Zinacef. Details and risk of surgery were carefully and completely discussed. Education was completed with both written and video materials. I counseled personally with Ms. Simpson and her . All questions were answered. They wished to proceed. Procedure: Details and risks of the surgery were carefully and frankly explained to Ms. Simpson and her . Particular risks of this surgery carefully reviewed with them included the possibility of , stroke, heart attack, major bleeding, infection, pneumonia, pain, organ failure, failure to benefit, early closure of the bypass grafts, prolonged hospital stay and subsequent need for further procedures. Increased risks for complications secondary to her short stature, obesity, diabetes mellitus, and high-grade proximal LAD stenosis were carefully reviewed. She and her understand these increased risks. All questions were answered and appropriate consents were reviewed and signed. Preoperative education for the patient and the family included both written and video materials. Ms. Simpson and her wished to proceed with plans for attempted surgical revascularization for severe coronary artery bypass. PROCEDURE: Preoperative evaluation was obtained from our Anesthesia colleagues and adequate IVs were confirmed. The patient was then taken to the Operating Room Suite where general anesthesia was induced. Appropriate invasive monitoring lines were placed, including large bore peripheral IVs, central line, [place] catheter, Dill catheter and associated monitoring leads. After careful positioning on the Operating Room table, the patient was subsequently sterilely prepped and draped. The patient then received low-dose Heparin prior to vein harvest. Saphenous vein was harvested by endoscopic and open technique from the right thigh. Branches were secured with ligature and clips and the vein was extracted from the tunnel without tension. It was then flushed with a Heparin and albumin solution and prepared for grafting. Vein harvest sites were irrigated, platelet poor plasma infused into the tunnel and port sites closed with 3-0 and 4-0 Vicryl Plus suture. Simultaneously with vein harvesting, a median sternotomy was created utilizing a #10 scalpel blade with hemostasis controlled with cautery. After reaching the sternal table, the sternum was divided with a reciprocating saw. Bleeding was controlled with cautery and judicious use of bone wax. Following this, the left chest wall was elevated with a Rultract retractor. The left internal mammary artery was dissected free with branches being secured with clips and cautery. The distal end was left intact. After harvesting of the mammary artery, a left pleural chest tube was then placed. The left chest wall was then lowered and moistened antibiotic-soaked laparotomy pads were placed in the wound, followed by an Ankeney retractor. The sternum was then and the pericardium opened and secured with stay sutures. After inspection, 2-0 pledgeted Ethibond sutures were placed at cannulation sites, at which time the patient was fully heparinized. Following this, the left internal mammary artery was taken down from its distal attachment, flushed with Papaverine solution, prepared for grafting and brisk flow confirmed. A soft bulldog was applied distally. Next, the heart was cannulated with a 22-[place] aortic cannula, two-stage venous cannula and aortic root vent. The patient was subsequently placed on cardiopulmonary bypass and cooled systemically to 34 degrees. Aortic cross-clamp was then carefully placed and 4 degree Celsius cold blood cardioplegia was administered through the aortic root in antegrade fashion. Prompt diastolic arrest was obtained. Left ventricular decompression was confirmed. The heart was cooled systemically with iced saline with an insulation pad in place to protect the phrenic nerve. Throughout the cross-clamp period, at 20-30 minute intervals, antegrade blood cardioplegia was administered to maintain asystole. We then inspected the cardiac surface and coronary anatomy. Due to her short stature and compact nature, along with substantial adipose tissue, elevation of the heart was difficult but did provide adequate exposure to the LAD and diagonal arteries, our targets. Additionally, we isolated the diagonal artery, approximate 1.5 mm in size, open this vessel and performed an end-to-side anastomosis with a section of saphenous vein graft utilizing running 7-0 Prolene suture. With the rewarming phase of bypass continuing, the left internal mammary artery was brought through a left anterior pericardial window into the field. The LAD was opened up in its mid one-third and was approximately 2 mm in size. The BROWNING was then anastomosed to the LAD with a running 7-0 Prolene suture. It should be noted that all distal coronary anastomoses were performed over the appropriate size coronary shunt which was removed prior to securing the distal suture line. Aortic root vent cannula was removed and the proximal portion of the vein graft to the diagonal artery was sewn to the aorta at this point, to a 4 mm aortotomy, utilizing running 5-0 Prolene suture. Following this, aortic cross-clamp was released and de-airing maneuvers were performed through the aortic root vent, as well as being confirmed by transesophageal echocardiography. Dobutamine at 3 mcg per kilogram per minute was administered with good inotropic affect. Dual-chamber pacing was performed with temporary pacing wires with good capture at 80 bpm DDD. Underlying rhythm was junctional. After adequate recovery from the cross-clamp period and confirmation of cardiac stability, the patient was weaned from bypass without difficulty. Venous cannula was removed. Heparin was reversed with Protamine and confirmed by measurement of activated clotting time. The heart was then decannulated and cannulation sites were oversewn as required. Pacing wires were placed and brought through the skin and secured. Radiopaque marker were placed on the vein graft at the level of aorta. Two mediastinal drains were placed and connected to Pleur-evac suction. The wound was carefully irrigated and hemostasis was confirmed. Jazmine retractor was removed and sponge and needle count was correct. She did receive a total of 4 units packed RBCs throughout the procedure, with noted anemia upon entering the operative suite. The sternum was then reapproximated very carefully with interrupted #7 stainless steel wire with Surgicel strips used beneath the sternal table. Fascia was closed with #1 Vicryl suture with the next layers being closed with 2-0 and 3-0 suture. The skin was reapproximated carefully in a subcuticular manner. Sterile dressings were applied, followed by a vacuum-assisted dressing. Ms. Simpson was carefully removed from the operating room table and transferred to the Intensive Care Unit. Her was then counseled by phone as to the details of the procedure. Dr. Blas will be notified of our operative findings and procedure details.
[2020-04-12 17:25] LABS: Basophils # 0.1 10^3/uL (0.0-0.1); Basophils % 0.4 %; Eosinophils # 0.1 10^3/uL (0.0-0.8); Eosinophils % 0.5 %; Hematocrit 40.4 % (37.0-47.0); Hemoglobin 12.6 g/dL (11.5-15.3); Mean Corpuscular HGB Conc 31.2 g/dL (30.0-36.0); Mean Corpuscular Hemoglobin 29.5 pg (28.0-34.0); Mean Corpuscular Volume 94.6 fL (81-99); Mean Platelet Volume 10.9 fL (7.4-10.4); Monocytes # 1.7 10^3/uL (0.2-0.9); Monocytes % 11.5 %; Neutrophils # 10.63 10^3/uL (1.8-7.7); Neutrophils % 73.1 %; Nucleated Red Blood Cells % 0 %; Platelet Count 157 10^3/cmm (130-400); Red Blood Count 4.27 10^6/uL (4.1-5.3); Red Cell Distribution Width 15.9 % (12.1-15.1); White Blood Count 14.5 10^3/uL (4.0-10.0)
[2020-04-12 17:29] LABS: Blood Urea Nitrogen 19 mg/dL (8-23); Calcium 8.8 mg/dL (8.5-10.5); Carbon Dioxide 21 mmol/L (22-29); Chloride 115 mmol/L (98-107); Glomerular Filtration Rate 63.4 mL/min (90-130); Glucose 152 mg/dL (65-115); Magnesium 3.5 mg/dL (1.7-2.3); Osmolality Calculated 295 mOsm/kg (285-295); Sodium 143 mmol/L (136-145)
[2020-04-12 17:51] LABS: Anion Gap 11.5 (5-19); Potassium 4.5 mmol/L (3.5-5.1)
--- NOTE | 2020-04-12 17:53 | PM.CONSULT ---
Providers/Reason For Consult Consulting Physican/Specialty*: Cardiology Reason for Consult*: Post CABG Attending Physician: Joey Serna MD Primary Care Provider: Antonio Walls DO History of Present Illness History of Present Illness Amanad Simpson is a 64 year old female past medical history significant for hypertension hyperlipidemia diabetes mellitus for complex multivessel coronary artery disease underwent CABG today. Postop patient was transferred to ICU. Currently she is appeared to be stable hemodynamics ascencio. She is intubated and sedated. Chest tube and pacemaker in place. No bleeding or hemodynamic issues at the moment. Review of Systems ENMT: Denies: enlarged tonsils Meds/Allergies Home Medications and Allergies Home Medications Medication Instructions Recorded Confirmed Last Taken Type duloxetine 60 mg PO BID 30 Days #60 cap 02/27/20 04/12/20 04/11/20 Rx levothyroxine 100 mcg PO DAILY 30 Days #30 tab 02/27/20 04/12/20 04/12/20 04:00 Rx metformin 500 mg PO DAILY #30 tab 02/27/20 04/12/20 04/09/20 Rx nitroglycerin 0.4 mg SUBLINGUAL Q5M #30 tab 03/23/20 04/12/20 04/11/20 Rx aspirin 81 mg tablet,delayed 81 mg PO DAILY #30 tab 03/29/20 04/12/20 04/09/20 Rx release atenolol 50 mg tablet 50 mg PO DAILY #30 tab 03/29/20 04/12/20 04/12/20 04:00 Rx atorvastatin 40 mg tablet 40 mg PO BEDTIME #30 tab 03/29/20 04/12/20 04/11/20 Rx furosemide 20 mg tablet 20 mg PO DAILY #30 tab 03/29/20 04/12/20 04/11/20 Rx isosorbide mononitrate 30 mg 30 mg PO DAILY #30 tab 03/29/20 04/12/20 04/12/20 04:00 Rx tablet,extended release 24 hr losartan 100 mg tablet 100 mg PO DAILY #30 tab 03/29/20 04/12/20 04/12/20 04:00 Rx tamsulosin 0.4 mg capsule 0.4 mg PO DAILY 30 Days #30 cap 03/29/20 04/12/20 04/10/20 Rx Allergies Allergy/AdvReac Type Severity Reaction Status Date / Time tetanus and diphtheria Allergy Unknown Verified 03/11/20 16:11 toxoids Current Medications Current Medications Generic Name Dose Route Start Last Admin Trade Name Freq PRN Reason Stop Dose Admin Fentanyl 50 mcg 04/12/20 16:41 04/12/20 17:00 Sublimaze IVP 50 mcg Q1H PRN Administration SEVERE PAIN Sodium Chloride 1,000 mls @ 30 mls/hr 04/12/20 05:00 04/12/20 05:22 Sodium Chloride 0.9% IV 04/13/20 04:59 30 mls/hr .Q24H GABRIEL Administration Albumin Human 12.5 gm in 250 mls @ 600 mls/hr 04/12/20 16:41 04/12/20 17:49 Albumin IV 600 mls/hr PRN PRN Administration For CVP < 4 or SBP< 90 Propofol 1,000 mg in 100 mls @ 0 mls/hr 04/12/20 16:41 04/12/20 17:15 Diprivan IV 5 mcg/kg/min .Q0M GABRIEL 3.3 mls/hr Administration Protocol Per Protocol PFSH Acute PFSH: Medical History Abnormal finding on EKG -Noted to have ST depression on EKG -Troponins noted, delta not calculated -Telemetry monitoring -Echo limited study but no noted gross wall motion abnormalities, G1DD -Nuclear stress testing with noted small area of old CA surrounded by moderate area of medium sized neel-infarct ischemia noted in leads to distal anterior wall suggestive of possible lesion in the LAD territory, TID ratio is elevated. Will likely need further evaluation with cardiac catheterization. Results discussed with Dr. Blas. -on aspirin, statin, Plavix, beta-kassy. We will hold anticoagulation for planned procedure today. Given non-invasive nature of procedure, do not anticipate higher than average risk for complications -BP controlled, continue to monitor vital signs Anxiety Atrial fibrillation DM type 2 (diabetes mellitus, type 2) -appears to be new onset -A1c-7.4 -accuchecks, will start on low dose metformin, encourage to monitor blood glucose once per day with log which will need to be reviewed by PCP Essential hypertension Fibromyalgia GERD (gastroesophageal reflux disease) -on famotidine Hydronephrosis Hypertension -Presented with hypertensive urgency, BP controlled -Continue to monitor vital signs -Continue losartan, Lasix, atenolol Hypothyroidism -TSH wnl -on levothyroxine Morbid obesity -BMI-48 kg/m2 -working on getting gastric bypass in [place] Right ureteral calculus Surgical History H/O: hysterectomy Family History Grandfather Family history of premature coronary artery disease Grandfather of CA at age 50 Social History Smoking and tobacco status: never smoked Alcohol intake: never Adopted: No Caregiver/support person: No Lives independently: No Household members: spouse and family Housing: House Marital status: Current occupational status: employed Current gender identity: Female Dietary Habits: Current diet type/program: regular Caffeine: No Exercise: What type of physical activity do you participate in?: none Safety: Seatbelt use: always Home Safety: Working smoke detector in home: Yes Fire extinguisher in home: Yes Carbon monoxide detector in home: No Vitals/I&O/Wt Last Vital Signs Pulse 83 04/12/20 17:35 Resp 14 04/12/20 17:00 BP 92/68 04/12/20 17:35 Pulse Ox 99 04/12/20 17:35 04/12/20 04/12/20 04/12/20 06:59 14:59 22:59 Intake Total 1490 / 1490 300 / 1790 Balance 1490 / 1490 300 / 1790 Weight last 48 hrs Weight 246 lb Physical Exam Narrative: EXAM NARRATIVE: GENERAL: Patient is sedated and intubated. NECK: No jugular vein distension. HEENT: No cyanosis. No icterus. No pallor. HEART: Regular S1 and S2. No murmur, rub or gallop. LUNGS: Clear to auscultate bilaterally. ABDOMEN: Nondistended. no bowel sounds. No guarding, rebound or tenderness. CENTRAL NERVOUS SYSTEM: Cannot assess due to sedated. EXTREMITIES: Lower extremities with 1+ edema bilaterally. Urinary Catheter Management^: Dill: Cath Placed During This Visit: yes Urinary Catheter Date of Insertion: 04/12/20 Urinary Catheter Time of Insertion: 07:26 A&P Assessment and plan (1) CAD (coronary artery disease), [place] coronary artery: Status post CABG. Continue management as per CT surgery Status: Acute (2) Essential hypertension: Well-controlled continue med Status: Acute (3) Right ureteral calculus: Patient has history of ureteral calculus status post ureter stent by Dr. Tran. Hopefully after couple of weeks of surgery she will follow-up for stent removal with Dr. Tran Status: Acute (4) DM type 2 (diabetes mellitus, type 2): Continue sliding-scale Status: Inactive Qualifiers: Diabetes mellitus assisted insulin use: without manager terminal use Diabetes mellitus complication status: without complication Qualified Code(s): E11.9 - Type 2 diabetes mellitus without complications Consult Attestations Medical Necessity Statement: Patient require continuation hospitalization for above defined care Coding Level of Care Code Established Pt Acute Social Service Technician for [facility] Patient Type Established Medical Decision Making Moderate Complexity Diagnoses CAD (coronary artery disease), [place] coronary artery I25.10 Essential hypertension I10 Right ureteral calculus N20.1 DM type 2 (diabetes mellitus, type 2) E11.9 Diabetes mellitus manager terminal insulin use: without manager terminal use Diabetes mellitus complication status: without complication
[2020-04-12 18:01] LABS: INR 1.33 (0.8-1.2)
[2020-04-12 18:02] LABS: Partial Thromboplastin Time 33.7 SECONDS (23.9-36.7)
[2020-04-12] MEDS: levofloxacin-dextrose 5 % 500 MG/100 ML PREMIX 100 MG IV (18:58)
[2020-04-12] MEDS: DOBUTamine drip 500 MG/250 ML PREMIX 10 MG IV (18:59)
[2020-04-12] MEDS: sodium chloride 0.9% 1,000 ML 75 ML IV (19:00)
--- NOTE | 2020-04-12 19:00 | PC.NURSE ---
Report received from TRUMAN Zelaya. Pt remains intubated and sedated. [place] catheter measurement at 45. Pt AV paced at this time. Dobutamine infusing at 3mcg/kg/min. Nitro and neosynephrine are off at this time. Chest tube/urine outputs reviewed with day nurse.
[2020-04-12] MEDS: atorvastatin 40 mg Tablet PO (20:16)
[2020-04-12] MEDS: aspirin 81 mg Chew Tablet PO (20:16)
[2020-04-12] MEDS: chlorhexidine gluconate 0.12% Btl 473 mL 15 ML MUCOUS MEM (20:17)
[2020-04-12] MEDS: mupirocin oint 22 gm 1 APPLIC NASAL ×2 (20:17→21:51)
--- NOTE | 2020-04-12 20:19 | XR_ITS ---
WS: [id number] CHEST XRAY TECHNIQUE: Portable chest. CLINICAL INFORMATION: post op CABG, evaluation of OG tube COMPARISON: April 12, 2020 FINDINGS: Enteric tube with tip below the diaphragm. Endotracheal tube appears to be at the hetal di rected towards right mainstem bronchus. Right IJ sheath with [place]-Richar catheter. Bilateral chest tube s. No visualized pneumothorax. Cardiomegaly with moderate pulmonary vascular congestion. Sternotomy. Mediastinal clips. Retained needle within the left upper quadrant. XR/XR chest 1V portable [id number] IMPRESSION: 1. Enteric tube with tip below the diaphragm. Endotracheal tube appears to be located at the hetal directed towards the right mainstem bronchus. 2. Bilateral chest tubes. No pneumothorax. 3. Retained needle in the left upper quadrant.
[2020-04-12 21:29] LABS: Basophils % 0.3 %; Eosinophils % 0.2 %; Hemoglobin 10.3 g/dL (11.5-15.3); Lymphocytes # 0.9 10^3/uL (0.8-4.8); Lymphocytes % 8.4 %; Mean Corpuscular HGB Conc 31.2 g/dL (30.0-36.0); Mean Corpuscular Hemoglobin 29.3 pg (28.0-34.0); Mean Platelet Volume 11.1 fL (7.4-10.4); Monocytes # 1.1 10^3/uL (0.2-0.9); Monocytes % 10.7 %; Neutrophils # 8.43 10^3/uL (1.8-7.7); Neutrophils % 79.8 %; Nucleated Red Blood Cells % 0 %; Platelet Count 151 10^3/cmm (130-400); Red Blood Count 3.51 10^6/uL (4.1-5.3); Red Cell Distribution Width 16.5 % (12.1-15.1); White Blood Count 10.6 10^3/uL (4.0-10.0)
[2020-04-12 21:34] LABS: Anion Gap 12.3 (5-19); Blood Urea Nitrogen 19 mg/dL (8-23); Calcium 8.2 mg/dL (8.5-10.5); Carbon Dioxide 21 mmol/L (22-29); Chloride 116 mmol/L (98-107); Glomerular Filtration Rate 50.3 mL/min (90-130); Glucose 150 mg/dL (65-115); Osmolality Calculated 299 mOsm/kg (285-295); Potassium 4.3 mmol/L (3.5-5.1); Sodium 145 mmol/L (136-145)
[2020-04-13] VITALS (65 sets, daily range): BP systolic 68–140; BP diastolic 47–91; PULSE 75–93; RESP 10–27; TEMP 36.7–37.4; O2SAT 94–99
[2020-04-13] MEDS: oxyCODONE-APAP 5-325 mg Tablet PO ×3 (00:31→18:23)
--- NOTE | 2020-04-13 00:37 | PC.NURSE ---
Paused Pacemaker temporarily to assess underlying rhythm. Sinus raf rate 45.
[2020-04-13 00:53] LABS: Basophils % 0.2 %; Eosinophils % 0.1 %; Hematocrit 33.7 % (37.0-47.0); Hemoglobin 10.7 g/dL (11.5-15.3); Lymphocytes # 0.8 10^3/uL (0.8-4.8); Lymphocytes % 8.5 %; Mean Corpuscular HGB Conc 31.8 g/dL (30.0-36.0); Mean Corpuscular Hemoglobin 29.4 pg (28.0-34.0); Mean Corpuscular Volume 92.6 fL (81-99); Mean Platelet Volume 10.9 fL (7.4-10.4); Monocytes # 1.3 10^3/uL (0.2-0.9); Monocytes % 13.5 %; Neutrophils # 7.69 10^3/uL (1.8-7.7); Neutrophils % 77.4 %; Nucleated Red Blood Cells % 0 %; Platelet Count 155 10^3/cmm (130-400); Red Blood Count 3.64 10^6/uL (4.1-5.3); Red Cell Distribution Width 16.5 % (12.1-15.1); White Blood Count 9.9 10^3/uL (4.0-10.0)
[2020-04-13 01:06] LABS: Anion Gap 14.7 (5-19); Blood Urea Nitrogen 21 mg/dL (8-23); Calcium 8.5 mg/dL (8.5-10.5); Carbon Dioxide 21 mmol/L (22-29); Chloride 113 mmol/L (98-107); Glomerular Filtration Rate 50.3 mL/min (90-130); Glucose 131 mg/dL (65-115); Osmolality Calculated 296 mOsm/kg (285-295); Potassium 4.7 mmol/L (3.5-5.1); Sodium 144 mmol/L (136-145)
[2020-04-13] MEDS: morphine 4 mg/mL SDV 1 mL 2 MG IVP ×6 (01:55→17:47)
[2020-04-13] MEDS: fentaNYL 50 mcg/mL INJ 2mL IVP ×4 (04:16→23:02)
[2020-04-13 04:42] LABS: ABG PCO2 25.8 mmHg (35-45); ABG PH Result 7.51 (7.35-7.45); Arterial Blood Gas Hematocrit 36.7 % (37-47); Base Excess ABG -1.3 mmol/L (-2.0-2.0); Blood Gas Allen Test Pos; Blood Gas Sample Site Radial, right; Blood Gas Sample Type Arterial; Carboxyhemoglobin 0.8 %THgb (0.4-20.1); HCO3 ABG 20.5 mmol/L (22-26); HGB O2 Sat 97.2 % (95-100); Ionized Calcium Level - ABG 1.2 mmol/L (1.1-1.4); Methemoglobin 0.9 % (0.4-1.5); Oxygen Device VENT; Oxygen Saturation ABG 98.9; PO2 ABG 99.5 mmHg (80.0-100.0); Potassium Level - ABG 4.3 mmol/L (3.5-5.0)
[2020-04-13 05:07] LABS: Glucose Point of Care 150 mg/dL (70-110)
[2020-04-13 05:07] LABS: Glucose Point of Care 150 mg/dL (70-110)
[2020-04-13 05:07] LABS: Glucose Point of Care 116 mg/dL (70-110)
[2020-04-13 05:07] LABS: Glucose Point of Care 127 mg/dL (70-110)
[2020-04-13 05:07] LABS: Glucose Point of Care 119 mg/dL (70-110)
[2020-04-13 05:07] LABS: Glucose Point of Care 134 mg/dL (70-110)
[2020-04-13 05:07] LABS: Glucose Point of Care 140 mg/dL (70-110)
[2020-04-13 05:07] LABS: Glucose Point of Care 138 mg/dL (70-110)
[2020-04-13 05:07] LABS: Glucose Point of Care 129 mg/dL (70-110)
[2020-04-13 05:07] LABS: Glucose Point of Care 136 mg/dL (70-110)
[2020-04-13 05:07] LABS: Glucose Point of Care 158 mg/dL (70-110)
[2020-04-13 05:07] LABS: Glucose Point of Care 121 mg/dL (70-110)
[2020-04-13 05:07] LABS: Glucose Point of Care 143 mg/dL (70-110)
[2020-04-13 05:19] LABS: Basophils % 0.2 %; Eosinophils % 0.1 %; Hematocrit 33.6 % (37.0-47.0); Hemoglobin 10.6 g/dL (11.5-15.3); Lymphocytes % 10.4 %; Mean Corpuscular HGB Conc 31.5 g/dL (30.0-36.0); Mean Corpuscular Hemoglobin 29.2 pg (28.0-34.0); Mean Corpuscular Volume 92.6 fL (81-99); Mean Platelet Volume 11.6 fL (7.4-10.4); Monocytes % 10.2 %; Neutrophils # 7.55 10^3/uL (1.8-7.7); Neutrophils % 78.8 %; Nucleated Red Blood Cells % 0 %; Platelet Count 163 10^3/cmm (130-400); Red Blood Count 3.63 10^6/uL (4.1-5.3); Red Cell Distribution Width 16.8 % (12.1-15.1); White Blood Count 9.6 10^3/uL (4.0-10.0)
[2020-04-13 05:35] LABS: Anion Gap 13.5 (5-19); Blood Urea Nitrogen 19 mg/dL (8-23); Calcium 8.6 mg/dL (8.5-10.5); Carbon Dioxide 21 mmol/L (22-29); Chloride 115 mmol/L (98-107); Glomerular Filtration Rate 56.2 mL/min (90-130); Glucose 128 mg/dL (65-115); Glucose Fasting 128 mg/dL (74-106); Magnesium 3.1 mg/dL (1.7-2.3); Osmolality Calculated 298 mOsm/kg (285-295); Potassium 4.5 mmol/L (3.5-5.1); Sodium 145 mmol/L (136-145)
--- NOTE | 2020-04-13 06:00 | XR_ITS ---
WS: [id number] CHEST XRAY TECHNIQUE: Portable chest. CLINICAL INFORMATION: Postop day #1 status post CABG COMPARISON: April 12, 2020 FINDINGS: Endotracheal tube with tip above the hetal. Enteric tube with tip below the diaphragm. Wayne ateral chest tubes. No significant pneumothorax. Cardiomegaly with mild perivascular congestion appea rs slightly improved. Right IJ sheath and [place]-Richar catheter. Left subclavian catheter Wire left upper quadrant is external to the patient Notified Joey Serna MD at 04/13/2020 9:18 AM. XR/XR chest 1V portable [id number] IMPRESSION: 1. Stable tubes and lines. 2. Postoperative sternotomy with cardiomegaly. Mild vascular congestion. 3. Bilateral chest tubes. No pneumothorax. 4. Bent wire left upper quadrant is external to the patient
--- NOTE | 2020-04-13 06:00 | ECG_ITS ---
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 Measurements Intervals [place] Rate: 79 P: -87 [place]: 167 QRS: 19 QRSD: 192 T: -62 QT: 492 QTc: 565 Interpretive Statements ELECTRONIC ATRIAL PACEMAKER ELECTRONIC VENTRICULAR PACEMAKER ABNORMAL RHYTHM ECG Compared to ECG 04/12/2020 17:28:31 No significant changes Electronically Signed On 04-13-2020 19:19:39 CDT by Wyatt Blas M.D. [email or web address]
--- NOTE | 2020-04-13 06:35 | PM.PN ---
Subjective Subjective: Interval history: Postop day #1 status post CABG x2. Uneventful night. No arrhythmias. Inotropic, dobutamine, he is off. Intake and output is up about 2.5 L. Chest of output about 170 cc since surgery. Urine output averaging upright at 30 cc an hour. The latter currently on spontaneous mode. Cardiac index 2.1. I reviewed this morning's chest x-ray. I noticed this morning which I had not noticed on the original postop x-ray that the left subclavian line extends to the left of the midline. I am therefore I have a blood gas drawn on this line to confirm that it is a venous sample. Chest x-ray reveals a very generous cardiac silhouette which is rather compact. Unfortunately, the chest x-ray is a bit underpenetrated. Vitals/I&O/Wt Last Vital Signs Pulse 80 04/13/20 06:00 Resp 17 04/13/20 06:00 BP 119/66 04/13/20 06:00 Pulse Ox 97 04/13/20 06:00 04/12/20 04/12/20 04/13/20 14:59 22:59 06:59 Intake Total 1490 / 1490 1492.657 / 2982.657 239.281 / 3221.938 Output Total 533 / 533 320 / 853 Balance 1490 / 1490 959.657 / 2449.657 -80.719 / 2368.938 Weight last 48 hrs Weight 250 lb 3.2 oz Weight 246 lb Physical Exam Chest: COMMONS NORMALS: normal inspection of the chest (Wound VAC dressing and drains remain in position.) and normal palpation of entire chest wall Resp: COMMON NORMALS: clear to auscultation bilaterally (Though breath sounds are somewhat distant, though I think this is related to her body habitus.) AUSCULTATION: clear to auscultation bilaterally (Though breath sounds are somewhat distant, though I think this is related to her body habitus.) Urinary Catheter Management^: Dill: Cath Placed During This Visit: yes Reason for Continuing Indwelling Catheter: Accurate Measurement of Urinary Output in Critically Ill Patients Urinary Catheter Date of Insertion: 04/12/20 Urinary Catheter Time of Insertion: 07:26 Data : 04/13/20 04:30 04/13/20 04:30 A&P Assessment and plan (1) CAD (coronary artery disease), [place] coronary artery: Postop day #1 status post CABG x2. Malpositioned central venous line left subclavian is in the artery according to our blood gas measurement. Plan: I would proceed with plans to wean ventilator and extubate as usual. We will need to remove the central arterial line later. We will discontinue all fluids through this line. I like to do this when she is sitting upright and allow for close monitoring. CBC, BMP, chest x-ray in a.m. We will eventually need to perform diuresis though I think she has third spaced fluid right now. 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
[2020-04-13 06:59] LABS: INR 1.28 (0.8-1.2)
[2020-04-13 07:00] LABS: Partial Thromboplastin Time 38.7 SECONDS (23.9-36.7)
--- NOTE | 2020-04-13 07:07 | PC.NURSE ---
Dr. Lerma at bedside and reviewed AM chest xray. Orders given to stop infusing meds through left subclavian central line for suspicion of being arterial line. Meds now infusing through left AC. ABG ran off sample and to keep hep locked until further orders.
--- NOTE | 2020-04-13 07:12 | PC.NURSE ---
Bedside Report given to TRUMAN Augustin at this time.
--- NOTE | 2020-04-13 07:15 | PC.NURSE ---
RECEIVED REPORT FROM VCIKI LAUGHLIN. PT AROUSES EASILY, WILL SQUEEZE FINGERS & NOD HEAD YES/NO. REMAINS VENTILATED ON CPAP, CHEST TUBES DRAINING SEROSANG DRAINAGE, CASANOVA DRAINING LIGHT YOLETTE/STRAW COLORED URINE. WOUND VAC INTACT/WORKING, SCD/FOOT PUMP ON/WORKING. TEMP PACER REMAINS ON, CHECKED UNDERLYING RHYTHM, BRADYCARDIC WITH VENTRICULAR RATE IN 40'S MILD EDEMA TO BILAT UPPER EXTREMITY. ALL DRESSINGS REMAIN C/D/I AT PRESENT. DR PINO MADE ROUNDS THIS MORNING. WAS INSTRUCTED TO NOT USE LEFT SUBCLAVIAN D/T IT IS ARTERIAL & IT WILL BE PULLED AFTER EXTUBATION
--- NOTE | 2020-04-13 07:16 | ANE.PACU2 ---
Inpatient post-anesthesia follow up: Airway intact: No Vital signs: Temperature Pulse Rate 80 Respiratory Rate 17 Blood Pressure 119/66 Pulse Oximetry 97 Oxygen Delivery Me thod Mechanical Ventila tion Oxygen Flow Rate Fraction of Inspir ed Oxygen 40 Hydration adequate: Yes Nausea and vomiting: No Mental status: Altered Additional Comments: Patient intubated, following commands per nurses, still on NTG gtt. Triple lumen discovered to be in L SC artery. Infusions via catheter stopped and plan is to leave in place to allow clotting/healing. L arm exam within normal limits, no discoloration, swelling, etc.
[2020-04-13 07:20] LABS: Glucose Point of Care 114 mg/dL (70-110)
[2020-04-13 07:20] LABS: Glucose Point of Care 120 mg/dL (70-110)
[2020-04-13] MEDS: pantoprazole 40 mg SDV IVP (08:21)
[2020-04-13] MEDS: aspirin 81 mg Chew Tablet PO (08:22)
[2020-04-13 09:16] LABS: Glucose Point of Care 117 mg/dL (70-110)
[2020-04-13 09:16] LABS: Glucose Point of Care 112 mg/dL (70-110)
[2020-04-13] MEDS: chlorhexidine gluconate 0.12% Btl 473 mL 15 ML MUCOUS MEM ×2 (10:42→18:29)
[2020-04-13 11:02] LABS: Glucose Point of Care 98 mg/dL (70-110)
[2020-04-13 11:02] LABS: Glucose Point of Care 104 mg/dL (70-110)
--- NOTE | 2020-04-13 11:14 | PC.NURSE ---
1050- DR LUCA GRAF, TEMP PACER RATE TURNED DOWN TO 50, PT INTRINSIC RATE IN 70'S. WITH OCCASIONAL PACER SPIKES WILL CONTINUE TO MONITOR. SEDATION OFF @ 0930
--- NOTE | 2020-04-13 11:48 | PC.NUTR ---
NUTR CONSULT: Consult received. Will monitor for progress and needs.
[2020-04-13] MEDS: FUROsemide 10 mg/mL SDV 2mL 20 MG IVP ×2 (12:01→23:34)
--- NOTE | 2020-04-13 12:28 | PC.NURSE ---
1145 RT IN ROOM, PT PULLED POOR TIDAL VOLUME ON MINIMAL SETTINGS. DR PINO AT BEDSIDE & NOTIFIED. WANTS TO PULL LEFT SUBCLAVIAN CENTRAL LINE, HE PULLED LINE & I HELD PRESSURE UNTIL BLEEDING STOPPED, NO HEMATOMA NOTED. WILL CONTINUE TO MONITOR SITE THEN COVER WITH TEGADERM DRESSING..
[2020-04-13 13:04] LABS: Glucose Point of Care 91 mg/dL (70-110)
[2020-04-13 13:04] LABS: Glucose Point of Care 99 mg/dL (70-110)
--- NOTE | 2020-04-13 14:14 | P.PN_ITS ---
Subjective Subjective: Interval history: Status post CABG on day 2. Sedation has been weaned off responding to the commands opening the eye. No overnight event Vitals/I&O/Wt Last Vital Signs Pulse 84 04/13/20 13:20 Resp 11 L 04/13/20 13:20 BP 130/77 04/13/20 13:20 Pulse Ox 95 04/13/20 13:20 04/12/20 04/13/20 04/13/20 22:59 06:59 14:59 Intake Total 1492.657 / 2982.657 239.281 / 3221.938 52.148 / 52.148 Output Total 533 / 533 320 / 853 407 / 407 Balance 959.657 / 2449.657 -80.719 / 2368.938 -354.852 / -354.852 Weight last 48 hrs Weight 250 lb 3.2 oz Weight 246 lb Physical Exam Narrative: EXAM NARRATIVE: GENERAL: Patient opens her eyes and respond to the, NECK: No jugular vein distension. HEENT: No cyanosis. No icterus. No pallor. HEART: Regular S1 and S2. No murmur, rub or gallop. LUNGS: Clear to auscultate bilaterally. ABDOMEN: Soft, nontender and nondistended. no bowel sounds. No guarding, rebound or tenderness. CENTRAL NERVOUS SYSTEM: Grossly nonfocal. EXTREMITIES: Lower extremities trace edema bilaterally. Urinary Catheter Management^: Dill: Cath Placed During This Visit: yes Reason for Continuing Indwelling Catheter: Accurate Measurement of Urinary Output in Critically Ill Patients Urinary Catheter Date of Insertion: 04/12/20 Urinary Catheter Time of Insertion: 07:26 Data : 04/13/20 04:30 04/13/20 04:30 A&P Assessment and plan (1) CAD (coronary artery disease), [place] coronary artery: Status post CABG day 2 continue current regimen. We will optimize medicine. Status: Acute Qualifiers: [place] vs. transplanted heart: [place] heart Associated angina: without angina Qualified Code(s): I25.10 - Atherosclerotic heart disease of [place] coronary artery without angina pectoris (2) Essential hypertension: Optimally controlled continue medicine Status: Acute (3) Right ureteral calculus: Status post ureter stent. Continue to monitor urine output Status: Acute (4) Atrial fibrillation: History of paroxysmal A. fib. I may will start patient on amiodarone prophylactically. Currently she is in sinus Status: Acute Qualifiers: Atrial fibrillation type: paroxysmal Qualified Code(s): I48.0 - Paroxysmal atrial fibrillation Attestations Medical Necessity Statement*: Requires continuation hospitalization for above defined care Coding Level of Care Code Established Pt Acute Cosmetic Sales Consultant for g Fwd Patient Type Established History Expanded Problem Focused Exam Expanded Problem Focused Medical Decision Making Moderate Complexity Diagnoses CAD (coronary artery disease), [place] coronary artery I25.10 [place] vs. transplanted heart: [place] heart Associated angina: without angina Essential hypertension I10 Right ureteral calculus N20.1 Atrial fibrillation I48.0 Atrial fibrillation type: paroxysmal
--- NOTE | 2020-04-13 14:40 | PC.OT ---
OT EVALUATION HELD PATIENT IS STILL INTUBATED AND SEDATED.
[2020-04-13 16:44] LABS: Hemoglobin 10.6 g/dL (11.5-15.3)
[2020-04-13] MEDS: levofloxacin-dextrose 5 % 500 MG/100 ML PREMIX 100 MG IV (17:28)
--- NOTE | 2020-04-13 17:34 | PC.PT ---
Nursing staff recommends hold PT evaluation due to high blood pressure today, will reattempt PT evaluation tomorrow
--- NOTE | 2020-04-13 17:48 | PM.CONSULT ---
Providers/Reason For Consult Consulting Physican/Specialty*: Dr. Serna/Cardiothoracic surgery Reason for Consult*: Post CABG - Extubation Attending Physician: Joey Serna MD Primary Care Provider: Antonio Walls DO History of Present Illness History of Present Illness Amanda Simpson is a 64 year old female past medical history significant for hypertension hyperlipidemia diabetes mellitus for complex multivessel coronary artery disease underwent CABG 04/12/20. Postop patient was transferred to ICU. She is intubated and sedated. Chest tube and pacemaker in place. No bleeding or hemodynamic issues at the moment. Consult called for evaluation of postoperative extubation. Review of Systems General: Reports: ROS unobtainable due to endotracheal tube Meds/Allergies Home Medications and Allergies Home Medications Medication Instructions Recorded Confirmed Last Taken Type duloxetine 60 mg PO BID 30 Days #60 cap 02/27/20 04/12/20 04/11/20 Rx levothyroxine 100 mcg PO DAILY 30 Days #30 tab 02/27/20 04/12/20 04/12/20 04:00 Rx metformin 500 mg PO DAILY #30 tab 02/27/20 04/12/20 04/09/20 Rx nitroglycerin 0.4 mg SUBLINGUAL Q5M #30 tab 03/23/20 04/12/20 04/11/20 Rx aspirin 81 mg tablet,delayed 81 mg PO DAILY #30 tab 03/29/20 04/12/20 04/09/20 Rx release atenolol 50 mg tablet 50 mg PO DAILY #30 tab 03/29/20 04/12/20 04/12/20 04:00 Rx atorvastatin 40 mg tablet 40 mg PO BEDTIME #30 tab 03/29/20 04/12/20 04/11/20 Rx furosemide 20 mg tablet 20 mg PO DAILY #30 tab 03/29/20 04/12/20 04/11/20 Rx isosorbide mononitrate 30 mg 30 mg PO DAILY #30 tab 03/29/20 04/12/20 04/12/20 04:00 Rx tablet,extended release 24 hr losartan 100 mg tablet 100 mg PO DAILY #30 tab 03/29/20 04/12/20 04/12/20 04:00 Rx tamsulosin 0.4 mg capsule 0.4 mg PO DAILY 30 Days #30 cap 06/29/20 07/13/20 07/11/20 Rx Allergies Allergy/AdvReac Type Severity Reaction Status Date / Time tetanus and diphtheria Allergy Unknown Verified 03/11/20 16:11 toxoids Current Medications Current Medications Generic Name Dose Route Start Last Admin Trade Name Freq PRN Reason Stop Dose Admin Aspirin 81 mg 04/13/20 09:00 04/13/20 08:22 Aspirin Chewable PO 81 mg DAILY GABRIEL Administration Atorvastatin Calcium 40 mg 04/12/20 21:00 04/12/20 20:16 Lipitor PO 40 mg BEDTIME GABRIEL Administration Chlorhexidine Gluconate 15 ml 04/12/20 18:00 04/13/20 10:42 Perigard MUCOUS MEM 1 applic BID GABRIEL Administration Fentanyl 50 mcg 04/12/20 16:41 04/13/20 07:26 Sublimaze IVP 50 mcg Q1H PRN Administration SEVERE PAIN Albumin Human 12.5 gm in 250 mls @ 600 mls/hr 04/12/20 16:41 04/12/20 21:34 Albumin IV Infused PRN PRN Infusion For CVP < 4 or SBP< 90 Dobutamine HCl/Dextrose 500 mg in 250 mls @ 0 mls/hr 04/12/20 16:41 04/13/20 02:11 Dobutamine Drip IV 0 mcg/kg/min .Q0M PRN 0 mls/hr Cardiac Output Titration Protocol Per Protocol Propofol 1,000 mg in 100 mls @ 0 mls/hr 04/12/20 16:41 04/13/20 09:30 Diprivan IV 0 mcg/kg/min .Q0M GABRIEL 0 mls/hr Titration Protocol Per Protocol Cefuroxime Sodium 1,500 mg/ 100 mls @ 200 mls/hr 04/13/20 02:15 04/13/20 15:50 Sodium Chloride IV 04/14/20 14:44 Infused Q12H GABRIEL Infusion Protocol Levofloxacin/Dextrose 500 mg in 100 mls @ 100 mls/hr 04/12/20 17:30 04/13/20 17:28 Levaquin-D5w IV 100 mls/hr Q24H GABRIEL Administration Protocol Morphine Sulfate 2 mg 04/12/20 16:41 04/13/20 15:05 Morphine IVP 2 mg Q1H PRN Administration BREAKTHROUGH PAIN Mupirocin 1 applic 04/12/20 18:00 04/13/20 10:43 Bactroban NASAL Not Given BID GABRIEL Oxycodone/Acetaminophen 1 - 2 tab 04/12/20 16:41 04/13/20 10:32 Percocet 5-325 Mg PO 2 tab Q6H PRN Administration MILD TO MODERATE PAIN Pantoprazole Sodium 40 mg 04/13/20 09:00 04/13/20 08:21 Protonix IVP 04/14/20 08:59 40 mg DAILY GABRIEL Administration PFSH Acute PFSH: Medical History (Updated 04/13/20 @ 19:20 by Jaxson Arana MD) Abnormal finding on EKG -Noted to have ST depression on EKG -Troponins noted, delta not calculated -Telemetry monitoring -Echo limited study but no noted gross wall motion abnormalities, G1DD -Nuclear stress testing with noted small area of old NE surrounded by moderate area of medium sized neel-infarct ischemia noted in leads to distal anterior wall suggestive of possible lesion in the LAD territory, TID ratio is elevated. Will likely need further evaluation with cardiac catheterization. Results discussed with Dr. Blas. -on aspirin, statin, Plavix, beta-kassy. We will hold anticoagulation for planned procedure today. Given non-invasive nature of procedure, do not anticipate higher than average risk for complications -BP controlled, continue to monitor vital signs Anxiety Atrial fibrillation DM type 2 (diabetes mellitus, type 2) Essential hypertension Fibromyalgia GERD (gastroesophageal reflux disease) -on famotidine Hydronephrosis Hypertension -Presented with hypertensive urgency, BP controlled -Continue to monitor vital signs -Continue losartan, Lasix, atenolol Hypothyroidism -TSH wnl -on levothyroxine Right ureteral calculus Surgical History (Updated 04/13/20 @ 19:18 by Jaxson Arana MD) H/O: hysterectomy Family History Grandfather Family history of premature coronary artery disease Grandfather of [place] at age 50 Social History Smoking and tobacco status: never smoked Alcohol intake: never Adopted: No Caregiver/support person: No Lives independently: No Household members: spouse and family Housing: House Marital status: Current occupational status: employed Current gender identity: Female Vitals/I&O/Wt Last Vital Signs Pulse 85 04/13/20 16:00 Resp 14 04/13/20 16:00 BP 99/51 04/13/20 16:00 Pulse Ox 97 04/13/20 16:00 04/13/20 04/13/20 04/13/20 06:59 14:59 22:59 Intake Total 239.281 / 3221.938 52.148 / 52.148 650 / 702.148 Output Total 320 / 853 786 / 786 244 / 1030 Balance -80.719 / 2368.938 -733.852 / -733.852 406 / -327.852 Weight last 48 hrs Weight 250 lb 3.2 oz Weight 246 lb Physical Exam Narrative: EXAM NARRATIVE: GENERAL: Patient opens her eyes and responds commands NECK: No jugular vein distension. HEENT: No cyanosis. No icterus. No pallor. HEART: Regular S1 and S2. No murmur, rub or gallop. LUNGS: bibasilar crackles bilaterally. ABDOMEN: Soft, obese, nontender and nondistended. no bowel sounds. No guarding, rebound or tenderness. ETCHER APPRENTICE PHOTOENGRAVING: Awake and following commands; no FND Extremities: Lower extremities trace edema bilaterally. Urinary Catheter Management^: Dill: Cath Placed During This Visit: yes Reason for Continuing Indwelling Catheter: Accurate Measurement of Urinary Output in Critically Ill Patients Urinary Catheter Date of Insertion: 04/12/20 Urinary Catheter Time of Insertion: 07:26 Data Labs: Other Labs: Laboratory Results WBC 9.6 10^3/uL (4.0- 10.0) 04/13/20 04:30 RBC 3.63 10^6/uL (4.1 -5.3) L 04/13/20 04:30 Hgb 10.6 g/dL (11.5-1 5.3) L 04/13/20 16:30 Hct 34.0 % (37.0-47.0 ) L 04/13/20 16:30 MCV 92.6 fL (81-99) 04/13/20 04:30 MCH 29.2 pg (28.0-34. 0) 04/13/20 04:30 MCHC 31.5 g/dL (30.0-3 6.0) 04/13/20 04:30 RDW 16.8 % (12.1-15.1 ) H 04/13/20 04:30 Plt Count 163 10^3/cmm (130 -400) 04/13/20 04:30 MPV 11.6 fL (7.4-10.4 ) H 04/13/20 04:30 Neut % (Auto) 78.8 % 04/13/20 04:30 Lymph % (Auto) 10.4 % 04/13/20 04:30 [place] % (Auto) 10.2 % 04/13/20 04:30 Eos % (Auto) 0.1 % 04/13/20 04:30 Baso % (Auto) 0.2 % 04/13/20 04:30 Neut # (Auto) 7.55 10^3/uL (1.8 -7.7) 04/13/20 04:30 Lymph # (Auto) 1.0 10^3/uL (0.8- 4.8) 04/13/20 04:30 [place] # (Auto) 1.0 10^3/uL (0.2- 0.9) H 04/13/20 04:30 Eos # (Auto) 0.0 10^3/uL (0.0- 0.8) 04/13/20 04:30 Baso # (Auto) 0.0 10^3/uL (0.0- 0.1) 04/13/20 04:30 Nucleated RBC % (a uto) 0 % 04/13/20 04:30 Nucleated RBCs # 0.0 /100WBC 04/13/20 04:30 PT 16.40 SECONDS (10 .5-13.3) H 04/13/20 04:30 INR 1.28 (0.8-1.2) H 04/13/20 04:30 APTT 38.7 SECONDS (23. 9-36.7) H 04/13/20 04:30 Specimen Type Arterial 04/13/20 18:00 Sample Site Femoral, right 04/13/20 18:00 ABG pH 7.37 (7.35-7.45) 04/13/20 18:00 ABG pCO2 39.0 mmHg (35-45) 04/13/20 18:00 ABG pO2 86.7 mmHg (80.0-1 00.0) 04/13/20 18:00 ABG HCO3 22.4 mmol/L (22-2 6) 04/13/20 18:00 ABG O2 Saturation 97.0 04/13/20 18:00 ABG Base Excess -2.7 mmol/L (-2.0 -2.0) L 04/13/20 18:00 Mart Test Pos 04/13/20 18:00 A-a O2 Gradient 145.0 mmHg (5-10) H 04/13/20 18:00 Hematocrit 34.2 % (37-47) L 04/13/20 18:00 Hgb O2 Saturation 94.9 % (95-100) L 04/13/20 18:00 Carboxyhemoglobin 1.0 %THgb (0.4-20 .1) 04/13/20 18:00 Methemoglobin 1.2 % (0.4-1.5) 04/13/20 18:00 Total Hemoglobin 11.2 g/dL (12-16) L 04/13/20 18:00 Sodium 148.0 mmol/L (131 -143) H 04/13/20 18:00 Potassium 3.5 mmol/L (3.5-5 .0) 04/13/20 18:00 Glucose 97.0 mg/dL (70-11 5) 04/13/20 18:00 Ionized Calcium 1.1 mmol/L (1.1-1 .4) 04/13/20 18:00 Respiration Rate 12.0 % 04/12/20 17:10 O2 Delivery Device Vent 04/13/20 18:00 SIMV 12.0 04/12/20 17:10 FiO2 40.0 % 04/13/20 18:00 Tidal Volume 0.45 04/12/20 17:10 PEEP 10.0 cmH20 04/13/20 18:00 Pressure Support 15.0 cmH2O 04/13/20 18:00 Aerologist ID [id number] 04/13/20 18:00 Blood Gas Notified Time 1725 04/12/20 17:10 Sodium 146 mmol/L (136-1 45) H 04/13/20 18:06 Potassium 3.9 mmol/L (3.5-5 .1) 04/13/20 18:06 Chloride 113 mmol/L (98-10 7) H 04/13/20 18:06 Carbon Dioxide 24 mmol/L (22-29) 04/13/20 18:06 Anion Gap 12.9 (5-19) 04/13/20 18:06 BUN 20 mg/dL (8-23) 04/13/20 18:06 Creatinine 1.0 mg/dL (0.5-0. 9) H 04/13/20 18:06 GFR Calculation 56.2 mL/min (90-1 30) L 04/13/20 18:06 Glucose 100 mg/dL (65-115 ) 04/13/20 18:06 POC Glucose 104 mg/dL (70-110 ) 04/13/20 18:09 Fasting Glucose 128 mg/dL (74-106 ) H 04/13/20 04:30 Calculated Osmolal ity 299 mOsm/kg (285- 295) H 04/13/20 18:06 Calcium 7.7 mg/dL (8.5-10 .5) L 04/13/20 18:06 Phosphorus 3.8 mg/dL (2.5-4. 5) 04/13/20 18:06 Magnesium 2.5 mg/dL (1.7-2. 3) H 04/13/20 18:06 Total Bilirubin 0.7 mg/dL (0.15-1 .2) 04/07/20 09:45 Direct Bilirubin 0.20 mg/dL (0.00- 0.30) 04/07/20 09:45 AST 16 U/L (0-32) 04/07/20 09:45 ALT 29 U/L (0-33) 04/07/20 09:45 Alkaline Phosphata se 82 IU/L (35-105) 04/07/20 09:45 Total Protein 7.2 g/dL (6.6-8.7 ) 04/07/20 09:45 Albumin 4.3 g/dL (3.5-5.2 ) 04/07/20 09:45 Globulin 2.9 g/dL (1.3-4.6 ) 04/07/20 09:45 TSH 2.55 uIU/mL (0.27 -4.20) 04/07/20 09:45 Free T4 1.26 ng/dL (0.82- 1.77) 04/07/20 09:45 Urine Color Red (Yellow) 04/07/20 10:10 Urine Appearance Cloudy (CLEAR) 04/07/20 10:10 Urine pH 5.0 (5-7) 04/07/20 10:10 Ur Specific Gravit y 1.020 (1.005-1.0 30) 04/07/20 10:10 Urine Protein 3+ (Negative) H 04/07/20 10:10 Urine Glucose (UA) Norm (Normal) 04/07/20 10:10 Urine Ketones 1+ (Negative) H 04/07/20 10:10 Urine Blood 3+ (Negative) H 04/07/20 10:10 Urine Nitrate Positive (Negati ve) H 04/07/20 10:10 Urine Bilirubin 1+ (NEGATIVE) H 04/07/20 10:10 Urine Urobilinogen Norm mg/dL (Negat atilio) 04/07/20 10:10 Ur Leukocyte Cinda ase 2+ (Negative) H 04/07/20 10:10 Urine RBC >100 /hpf (0-2) H 04/07/20 10:10 Urine WBC 15-25 /hpf (0-5) H 04/07/20 10:10 Ur Squamous Epith Cells 5-10 (0-5) H 04/07/20 10:10 Amorphous Sediment Not Reportable 04/07/20 10:10 Urine Bacteria 1+ (NONE) H 04/07/20 10:10 Blood Type A Positive 04/07/20 09:45 Rho(D) Type Positive 04/07/20 09:45 Antibody Screen Negative 04/07/20 09:45 Crossmatch See Detail 04/07/20 09:45 Imaging^: CXR: Radiologist's impression: hest X-Ray 04/13/20 06:00 IMPRESSION: 1. Stable tubes and lines. 2. Postoperative sternotomy with cardiomegaly. Mild vascular congestion. 3. Bilateral chest tubes. No pneumothorax. 4. Bent wire left upper quadrant is external to the patient ABG^: ABG Interpretation 1: 04/12/20 04/12/20 04/12/20 06:37 06:37 06:37 ABG pH 7.46 H 7.44 7.39 ABG pCO2 37.8 38.9 40.4 ABG pO2 484.0 H* 453.0 H* 504.0 H* ABG HCO3 26.6 H 26.6 H 24.5 ABG O2 Saturation ABG Base Excess 2.6 H 2.3 H -0.4 04/12/20 04/12/2020 06:37 06:37 06:37 ABG pH 7.42 7.41 7.45 ABG pCO2 38.4 38.6 38.6 ABG pO2 483.0 H* 493.0 H* 452.0 H* ABG HCO3 25.1 24.4 26.6 H ABG O2 Saturation ABG Base Excess 0.6 -0.1 2.3 H 04/12/20 04/12/20 04/12/20 06:37 06:37 17:10 ABG pH 7.41 7.38 7.32 L ABG pCO2 37.3 39.7 40.1 ABG pO2 331.0 H* 417.0 H* 382.0 H* ABG HCO3 23.6 23.2 20.7 L ABG O2 Saturation ABG Base Excess -0.9 -1.8 -5.0 L 04/13/20 04/13/20 04:27 18:00 ABG pH 7.51 H 7.37 ABG pCO2 25.8 L 39.0 ABG pO2 99.5 86.7 ABG HCO3 20.5 L 22.4 ABG O2 Saturation 98.9 97.0 ABG Base Excess -1.3 -2.7 L A&P Assessment and plan (1) Endotracheally intubated: Status: Acute (2) Status post coronary artery bypass graft: Status: Acute (3) CAD (coronary artery disease), [place] coronary artery: Status: Acute Qualifiers: [place] vs. transplanted heart: [place] heart Associated angina: with unspecified angina Qualified Code(s): I25.119 - Atherosclerotic heart disease of [place] coronary artery with unspecified angina pectoris (4) Atrial fibrillation: Status: Acute Qualifiers: Atrial fibrillation type: paroxysmal Qualified Code(s): I48.0 - Paroxysmal atrial fibrillation (5) Essential hypertension: Status: Acute (6) DM type 2 (diabetes mellitus, type 2): Status: Acute Qualifiers: Diabetes mellitus terminal computer operator insulin use: without terminal computer operator use Diabetes mellitus complication status: without complication Qualified Code(s): E11.9 - Type 2 diabetes mellitus without complications (7) Right ureteral calculus: Status: Acute Amanda Simpson is a 64 year old female past medical history significant for hypertension hyperlipidemia diabetes mellitus for complex multivessel coronary artery disease underwent CABG 04/12/20. Postop patient was transferred to ICU. She is intubated and sedated. Chest tube and pacemaker in place. No bleeding or hemodynamic issues at the moment. Consult called for evaluation of postoperative extubation. NEURO: # Acute post-op pain: Percocet, Fentanyl and Morphine PRN # Sedation: On Propofol gtt - wean off sedation in am to facilitate SBT # Physical Therapy once pt is extuabted PULM: # Acute respiratory failure s/p CABG - Currently intubated and is on Spontaneous with PS 10 and PEEP of 8; 40% FIO2 - AB.37/39/86/97% - CXR: looks congested in am; target to keep even or net negative if possible - Plan is to diurese today and plan for extubation in am - Incentive Spriometry after extubation CVS: # S/p CABG X [address] Serna on 04/12/20 - Off Dobutamine - hemodynamically stable - Lasix 20 mg given - monitor UOP and if needed can give 20 mg more. - Monitor I & O and chest tube out put - managed as per CV Surgery - On ASA/Statin - hold b-blockers currently # Paroxysmal A.fib: currently in sinus On Amiodarone 200mg PO bid prophylactically - cardiology recs appreciated RENAL/: - Post op day 1 : + 2.5 L till 7 am today - since then -350 cc - UOP/HR - avg 35-40cc but improved after lasix 20 mg - Monitor BUN/Cr & Electrolytes - DC IVF # Right ureteral calculus: Status post ureter stent. Continue to monitor urine output GI: - still no BM yet - recommended to start Bowel Regimen - Nutrition: NPO # GI PPX: PPI ENDO: # H/O DM # FSBS Trend - 88-150 # Continue Insulin drip and monitor FSBS # Hypothyroid - Resume Levothyroxine 100 mcg PO daily HEM: # Hb/hct - stable # Chest tube output < 100 - managed as CV surgery # Currently no Need for transfusion # DVT prophylaxis: Resume as determined by CV surgery ID: # On Perioperative abx as per CV surgery # Currently no fever or WBC # Code status:Full code # Disposition: ICU Case discussed and recommendations conveyed to Dr. Serna Consult Attestations Time Spent in Patient Care: Greater than 35 minutes Critical Care Time: Critical Care Time (min): 40 Coding Level of Care Code New Pt Acute Meat Dresser for Chg Fwd Patient Type New Medical Decision Making High Complexity Diagnoses Endotracheally intubated Z97.8 Status post coronary artery bypass graft Z95.1 CAD (coronary artery disease), [place] coronary artery I25.119 [place] vs. transplanted heart: [place] heart Associated angina: with unspecified angina Atrial fibrillation I48.0 Atrial fibrillation type: paroxysmal Essential hypertension I10 DM type 2 (diabetes mellitus, type 2) E11.9 Diabetes mellitus half-way insulin use: without terminal computer operator use Diabetes mellitus complication status: without complication Right ureteral calculus N20.1 Time Spent (min) 40
[2020-04-13 18:10] LABS: ABG PH Result 7.37 (7.35-7.45); Arterial Blood Gas Hematocrit 34.2 % (37-47); Base Excess ABG -2.7 mmol/L (-2.0-2.0); Blood Gas Allen Test Pos; Blood Gas Sample Site Femoral, right; Blood Gas Sample Type Arterial; HCO3 ABG 22.4 mmol/L (22-26); HGB O2 Sat 94.9 % (95-100); Ionized Calcium Level - ABG 1.1 mmol/L (1.1-1.4); Methemoglobin 1.2 % (0.4-1.5); PO2 ABG 86.7 mmHg (80.0-100.0); Potassium Level - ABG 3.5 mmol/L (3.5-5.0); Total Hemoglobin 11.2 g/dL (12-16)
[2020-04-13 18:19] LABS: ABG PH Result 7.38 (7.35-7.45)
[2020-04-13 18:20] LABS: ABG PCO2 39.7 mmHg (35-45); Base Excess ABG -1.8 mmol/L (-2.0-2.0); HCO3 ABG 23.2 mmol/L (22-26); Potassium Level - ABG 4.1 mmol/L (3.5-5.0)
[2020-04-13 18:21] LABS: Arterial Blood Gas Hematocrit 36.5 % (37-47); Blood Gas Sample Type ARTERIAL; HGB O2 Sat 98.4 % (95-100); Ionized Calcium Level - ABG 1.3 mmol/L (1.1-1.4); Total Hemoglobin 11.9 g/dL (12-16)
[2020-04-13 18:22] LABS: ABG PCO2 37.3 mmHg (35-45); ABG PH Result 7.41 (7.35-7.45); Carboxyhemoglobin 0.9 %THgb (0.4-20.1); Methemoglobin 0.8 % (0.4-1.5)
[2020-04-13 18:23] LABS: Arterial Blood Gas Hematocrit 27.8 % (37-47); Base Excess ABG -0.9 mmol/L (-2.0-2.0); Blood Gas Sample Type ARTERIAL; HCO3 ABG 23.6 mmol/L (22-26); Potassium Level - ABG 4.4 mmol/L (3.5-5.0)
[2020-04-13 18:24] LABS: Carboxyhemoglobin 1.2 %THgb (0.4-20.1); HGB O2 Sat 98.2 % (95-100); Ionized Calcium Level - ABG 1.3 mmol/L (1.1-1.4); Methemoglobin 0.8 % (0.4-1.5); Total Hemoglobin 9.1 g/dL (12-16)
[2020-04-13] MEDS: amiodarone 200 mg Tablet PO (18:24)
[2020-04-13 18:25] LABS: ABG PCO2 38.6 mmHg (35-45); ABG PH Result 7.45 (7.35-7.45); Base Excess ABG 2.3 mmol/L (-2.0-2.0); HCO3 ABG 26.6 mmol/L (22-26)
[2020-04-13 18:26] LABS: Arterial Blood Gas Hematocrit 21.7 % (37-47); Blood Gas Sample Type ARTERIAL; Carboxyhemoglobin 1.8 %THgb (0.4-20.1); HGB O2 Sat 97.5 % (95-100); Ionized Calcium Level - ABG 1.6 mmol/L (1.1-1.4); Total Hemoglobin 7.1 g/dL (12-16)
[2020-04-13 18:27] LABS: ABG PCO2 38.6 mmHg (35-45); ABG PH Result 7.41 (7.35-7.45); Base Excess ABG -0.1 mmol/L (-2.0-2.0); HCO3 ABG 24.4 mmol/L (22-26)
[2020-04-13 18:28] LABS: Arterial Blood Gas Hematocrit 24.9 % (37-47); Blood Gas Sample Type ARTERIAL; Ionized Calcium Level - ABG 1.1 mmol/L (1.1-1.4); Potassium Level - ABG 4.7 mmol/L (3.5-5.0)
[2020-04-13 18:29] LABS: Carboxyhemoglobin 1.7 %THgb (0.4-20.1); HGB O2 Sat 97.5 % (95-100); Methemoglobin 0.9 % (0.4-1.5); Total Hemoglobin 8.1 g/dL (12-16)
[2020-04-13 18:31] LABS: ABG PCO2 38.4 mmHg (35-45); ABG PH Result 7.42 (7.35-7.45); Base Excess ABG 0.6 mmol/L (-2.0-2.0); HCO3 ABG 25.1 mmol/L (22-26); Potassium Level - ABG 4.2 mmol/L (3.5-5.0)
[2020-04-13 18:32] LABS: Arterial Blood Gas Hematocrit 25.1 % (37-47); Blood Gas Sample Type ARTERIAL; HGB O2 Sat 97.7 % (95-100); Ionized Calcium Level - ABG 1.1 mmol/L (1.1-1.4); Total Hemoglobin 8.2 g/dL (12-16)
[2020-04-13 18:33] LABS: ABG PH Result 7.39 (7.35-7.45); Carboxyhemoglobin 1.6 %THgb (0.4-20.1); Methemoglobin 0.8 % (0.4-1.5)
[2020-04-13 18:34] LABS: ABG PCO2 40.4 mmHg (35-45); Base Excess ABG -0.4 mmol/L (-2.0-2.0); HCO3 ABG 24.5 mmol/L (22-26); Potassium Level - ABG 5.4 mmol/L (3.5-5.0)
[2020-04-13 18:35] LABS: Arterial Blood Gas Hematocrit 25.4 % (37-47); Blood Gas Sample Type ARTERIAL; Carboxyhemoglobin 1.5 %THgb (0.4-20.1); HGB O2 Sat 97.8 % (95-100); Ionized Calcium Level - ABG 1.1 mmol/L (1.1-1.4); Methemoglobin 0.7 % (0.4-1.5); Total Hemoglobin 8.3 g/dL (12-16)
[2020-04-13 18:36] LABS: ABG PH Result 7.44 (7.35-7.45)
[2020-04-13 18:37] LABS: ABG PCO2 38.9 mmHg (35-45); Base Excess ABG 2.3 mmol/L (-2.0-2.0); Blood Gas Sample Type ARTERIAL; HCO3 ABG 26.6 mmol/L (22-26); Potassium Level - ABG 3.9 mmol/L (3.5-5.0)
[2020-04-13 18:38] LABS: Glucose Point of Care 88 mg/dL (70-110)
[2020-04-13 18:38] LABS: Glucose Point of Care 89 mg/dL (70-110)
[2020-04-13 18:38] LABS: Glucose Point of Care 104 mg/dL (70-110)
[2020-04-13 18:38] LABS: Glucose Point of Care 95 mg/dL (70-110)
[2020-04-13 18:38] LABS: Glucose Point of Care 89 mg/dL (70-110)
[2020-04-13 18:38] LABS: Arterial Blood Gas Hematocrit 29.3 % (37-47); Carboxyhemoglobin 0.3 %THgb (0.4-20.1); HGB O2 Sat 98.9 % (95-100); Ionized Calcium Level - ABG 1.2 mmol/L (1.1-1.4); Methemoglobin 0.8 % (0.4-1.5); Total Hemoglobin 9.6 g/dL (12-16)
[2020-04-13 18:39] LABS: ABG PCO2 37.8 mmHg (35-45); ABG PH Result 7.46 (7.35-7.45); Base Excess ABG 2.6 mmol/L (-2.0-2.0); HCO3 ABG 26.6 mmol/L (22-26); Potassium Level - ABG 4.1 mmol/L (3.5-5.0)
[2020-04-13 18:40] LABS: Arterial Blood Gas Hematocrit 29.8 % (37-47); Blood Gas Sample Type ARTERIAL; Ionized Calcium Level - ABG 1.3 mmol/L (1.1-1.4); Total Hemoglobin 9.7 g/dL (12-16)
[2020-04-13 18:41] LABS: Carboxyhemoglobin 0.4 %THgb (0.4-20.1); Methemoglobin 0.8 % (0.4-1.5)
[2020-04-13 18:42] LABS: Oxygen Device VENT
[2020-04-13 18:45] LABS: Blood Gas CCRB Time 1725
[2020-04-13 19:08] LABS: Anion Gap 12.9 (5-19); Blood Urea Nitrogen 20 mg/dL (8-23); Calcium 7.7 mg/dL (8.5-10.5); Carbon Dioxide 24 mmol/L (22-29); Chloride 113 mmol/L (98-107); Glomerular Filtration Rate 56.2 mL/min (90-130); Glucose 100 mg/dL (65-115); Osmolality Calculated 299 mOsm/kg (285-295); Potassium 3.9 mmol/L (3.5-5.1); Sodium 146 mmol/L (136-145)
[2020-04-13 19:10] LABS: Magnesium 2.5 mg/dL (1.7-2.3); Phosphorus 3.8 mg/dL (2.5-4.5)
--- NOTE | 2020-04-13 19:28 | PC.NURSE ---
REPORT TO VICKI LAUGHLIN. PT REPOSITIONED & LINEN CHANGE DONE. TOLERATED WELL. PT HERE TO VISIT EARLIER. WISHED WELL
[2020-04-13] MEDS: atorvastatin 40 mg Tablet PO (20:44)
[2020-04-13] MEDS: diphenhydrAMINE 25 mg Capsule PO (20:45)
--- NOTE | 2020-04-13 22:10 | PC.NURSE ---
Brooks Discontinued Verbal orders from Dr. Lerma to remove swan. Gamerco Richar catheter removed at this time from right internal jugular cordis without difficulty. No ectopy observed on removal, pt tolerated well. Cordis remains in place at this time.
[2020-04-13 22:15] LABS: ABG PCO2 43.2 mmHg (35-45); ABG PH Result 7.35 (7.35-7.45); Blood Gas Allen Test Pos; Blood Gas Sample Site Radial, right; Blood Gas Sample Type Arterial; HCO3 ABG 23.7 mmol/L (22-26); Oxygen Device VENT; PO2 ABG 91.4 mmHg (80.0-100.0)
--- NOTE | 2020-04-13 22:30 | PC.NURSE ---
Physician notified RT had weaned patient to lowest settings of CPAP mode on ventilator. ABG completed and within normal range. Called Dr. Lerma at this time to clarify if wanting extubated tonight versus AM. Due to patient at high risk for difficult reintubation decision made to wait till AM.
--- NOTE | 2020-04-13 22:55 | PC.NURSE ---
Pt gagging on ET tube, low dose sedation started at this time for comfort of patient until planned extubation in AM. propofol at 10mcg/kg/min
[2020-04-13] MEDS: propofol 1,000 MG/100 ML INJ 6.7 MG IV (22:56)
[2020-04-14] VITALS (39 sets, daily range): BP systolic 81–137; BP diastolic 47–71; PULSE 81–102; RESP 10–30; TEMP 36.3–37.2; O2SAT 95–100
[2020-04-14] MEDS: sodium chloride 0.9% 1,000 ML 30 ML IV (02:51)
--- NOTE | 2020-04-14 04:45 | PC.NURSE ---
Pacemaker turned off at this time. Rhythm normal sinus with rate of 90. Will continue to monitor.
--- NOTE | 2020-04-14 05:00 | XRR_ITS ---
PROCEDURE INFORMATION: Exam: XR Chest, 1 View Exam date and time: 04/14/2020 6:18 AM Age: 64 years old Clinical indication: Condition or disease; Other: Post cabg; Prior surgery; Surgery date: Post-operative (0-2 days); Patient HX: 04/12/20 cabg; Additional info: Post op cabg TECHNIQUE: Imaging protocol: XR of the chest Views: 1 view. COMPARISON: [place] XR chest 1V portable [id number] 04/13/2020 5:32 AM FINDINGS: Tubes, catheters and devices: Endotracheal tube, tip 1.5 cm above hetal. Nasogastric tube, tip below diaphragm and off image. Right internal jugular central venous sheath, tip overlying the upper superior vena cava. Left chest tube with tip overlying the left upper thorax. Lungs: Moderate bibasilar airspace opacities (atelectasis and/or consolidation), similar to prior study. Mild pulmonary edema, similar to prior study. Pleural space: No visible pneumothorax or pleural effusion. Heart/Mediastinum: Mild cardiomegaly, similar to prior study. Bones/joints: Median sternotomy wires are present. XR/XR chest 1V portable [id number] IMPRESSION: 1. Moderate bibasilar airspace opacities (atelectasis and/or consolidation), similar to prior study. 2. Mild pulmonary edema, similar to prior study.
[2020-04-14 05:13] LABS: Basophils # 0.1 10^3/uL (0.0-0.1); Basophils % 0.4 %; Eosinophils # 0.1 10^3/uL (0.0-0.8); Eosinophils % 0.5 %; Hematocrit 34.5 % (37.0-47.0); Hemoglobin 10.6 g/dL (11.5-15.3); Lymphocytes # 1.2 10^3/uL (0.8-4.8); Lymphocytes % 8.6 %; Mean Corpuscular HGB Conc 30.7 g/dL (30.0-36.0); Mean Corpuscular Hemoglobin 29.7 pg (28.0-34.0); Mean Corpuscular Volume 96.6 fL (81-99); Mean Platelet Volume 11.3 fL (7.4-10.4); Monocytes # 1.6 10^3/uL (0.2-0.9); Monocytes % 11.5 %; Neutrophils # 10.88 10^3/uL (1.8-7.7); Neutrophils % 78.5 %; Nucleated Red Blood Cells % 0 %; Platelet Count 170 10^3/cmm (130-400); Red Blood Count 3.57 10^6/uL (4.1-5.3); Red Cell Distribution Width 17.2 % (12.1-15.1); White Blood Count 13.9 10^3/uL (4.0-10.0)
[2020-04-14 05:32] LABS: Anion Gap 10.7 (5-19); Blood Urea Nitrogen 21 mg/dL (8-23); Calcium 7.9 mg/dL (8.5-10.5); Carbon Dioxide 25 mmol/L (22-29); Chloride 114 mmol/L (98-107); Glomerular Filtration Rate 72.7 mL/min (90-130); Glucose 103 mg/dL (65-115); Osmolality Calculated 299 mOsm/kg (285-295); Potassium 3.7 mmol/L (3.5-5.1); Sodium 146 mmol/L (136-145)
--- NOTE | 2020-04-14 06:15 | P.PN_ITS ---
Subjective Subjective: Interval history: Postop day #2 status post CABG. Uneventful night. No arrhythmias. Pacemaker is now off without intrinsic sinus rhythm of 88 bpm. Nice diuresis over the past 24 hours -1.5 L. This morning's chest x- ray is been completed though it is unavailable for viewing at this time. Modest hypokalemia, K rider scheduled. She has been evaluated by Dr. Arana yesterday, and he will plan to oversee delay awaiting extubation for today. We will transition from IV insulin per protocol to sliding scale. Approximate 150 cc from the pleural drains and mediastinal dr salazar past 24 hours. Vitals/I&O/Wt Last Vital Signs Temp 97.3 F L 04/14/20 05:22 Pulse 88 04/14/20 06:00 Resp 14 04/14/20 05:00 BP 125/49 04/14/20 06:00 Pulse Ox 97 04/14/20 06:00 04/13/20 04/13/20 04/14/20 14:59 22:59 06:59 Intake Total 52.148 / 52.148 750 / 802.148 Output Total 786 / 786 421 / 1207 1067 / 2274 Balance -733.852 / -733.852 329 / -404.852 -1067 / -1471.852 Weight last 48 hrs Weight 248 lb 11.2 oz Weight 250 lb 3.2 oz Physical Exam Chest: COMMONS NORMALS: normal inspection of the chest (Wound VAC dressing remains in place. Pacing wires in position. Drains with low output.) and normal palpation of entire chest wall Resp: COMMON NORMALS: clear to auscultation bilaterally (A bit distant breath sounds though clear. Remains sedated and mechanically supported.) AUSCULTATION: clear to auscultation bilaterally (A bit distant breath sounds though clear. Remains sedated and mechanically supported.) Extremity: OTHER: Peripheral edema slowly improving. Urinary Catheter Management^: Dill: Cath Placed During This Visit: yes Reason for Continuing Indwelling Catheter: Accurate Measurement of Urinary Output in Critically Ill Patients Urinary Catheter Date of Insertion: 04/12/20 Urinary Catheter Time of Insertion: 07:26 Data : 04/14/20 04:49 04/14/20 04:49 A&P Assessment and plan (1) CAD (coronary artery disease), [place] coronary artery: Postop day #2 status post CABG. Good diuresis yesterday. Plan extubation today under the direction of our pulmonary colleagues. CBC, BMP, chest x-ray in a.m. Sliding insulin scale Metoprolol 12.5 mg twice daily Status: Acute Qualifiers: [place] vs. transplanted heart: [place] heart Associated angina: with u nspecified angina Qualified Code(s): I25.119 - Atherosclerotic heart disease of [place] coronary artery with unspecified angina pectoris Attestations Medical Necessity Statement*: Postop day #2 status post CABG Time Spent in Patient Care: 16 - 35 minutes Coding Level of Care Code Acute Shortage Worker for [facility] Fwd Diagnoses CAD (coronary artery disease), [place] coronary artery I25.119 [place] vs. transplanted heart: [place] heart Associated angina: with unspecified angina
[2020-04-14] MEDS: metoprolol tartrate 25 mg Tablet 12.5 MG PO ×2 (06:43→18:23)
[2020-04-14] MEDS: aspirin 81 mg Chew Tablet PO (08:50)
[2020-04-14] MEDS: amiodarone 200 mg Tablet PO ×2 (08:50→18:25)
[2020-04-14] MEDS: oxyCODONE-APAP 5-325 mg Tablet PO ×3 (08:50→22:36)
[2020-04-14] MEDS: mupirocin oint 22 gm 1 APPLIC NASAL ×2 (08:53→18:27)
[2020-04-14] MEDS: chlorhexidine gluconate 0.12% Btl 473 mL 15 ML MUCOUS MEM (08:53)
--- NOTE | 2020-04-14 09:19 | P.PN_ITS ---
Subjective Subjective: Interval history: Postop day #2 status post CABG. Uneventful night. No arrhythmias. Pacemaker is now off without intrinsic sinus rhythm of 88 bpm. Nice diuresis over the past 24 hours -1.5 L. Today morning Chest x ray improved congestion compared to yesterday. Approximate 150 cc from the pleural drains and mediastinal drains past 24 hours. Vitals/I&O/Wt Last Vital Signs Temp 97.3 F L 04/14/20 05:22 Pulse 93 04/14/20 09:00 Resp 30 H 04/14/20 08:50 BP 128/62 04/14/20 09:00 Pulse Ox 98 04/14/20 09:00 04/13/20 04/14/20 04/14/20 22:59 06:59 14:59 Intake Total 750 / 802.148 Output Total 421 / 1207 1067 / 2274 100 / 100 Balance 329 / -404.852 -1067 / -1471.852 -100 / -100 Weight last 48 hrs Weight 248 lb 11.2 oz Weight 250 lb 3.2 oz Physical Exam Narrative: EXAM NARRATIVE: GENERAL: Patient opens her eyes and responds commands NECK: No jugular vein distension. HEENT: No cyanosis. No icterus. No pallor. HEART: Regular S1 and S2. No murmur, rub or gallop. LUNGS: improved basilar crackles bilaterally. ABDOMEN: Soft, obese, nontender and nondistended. no bowel sounds. No guarding, rebound or tenderness. PSYCHOLOGIST DEVELOPMENTAL: Awake and following commands; no FND Extremities: Lower extremities trace edema bilaterally. Urinary Catheter Management^: Dill: Cath Placed During This Visit: yes Reason for Continuing Indwelling Catheter: Accurate Measurement of Urinary Output in Critically Ill Patients Urinary Catheter Date of Insertion: 04/12/20 Urinary Catheter Time of Insertion: 07:26 Data : 04/14/20 04:49 04/14/20 04:49 A&P Assessment and plan (1) Endotracheally intubated: Status: Acute (2) Status post coronary artery bypass graft: Status: Acute (3) CAD (coronary artery disease), [place] coronary artery: Status: Acute Qualifiers: Associated angina: with unspecified angina [place] vs. transplanted heart: [place] heart Qualified Code(s): I25.119 - Atherosclerotic heart disease of [place] coronary artery with unspecified angina pectoris (4) Atrial fibrillation: Status: Acute Qualifiers: Atrial fibrillation type: paroxysmal Qualified Code(s): I48.0 - Paroxysmal atrial fibrillation (5) Essential hypertension: Status: Acute (6) DM type 2 (diabetes mellitus, type 2): Status: Acute Qualifiers: Diabetes mellitus complication status: without complication Diabetes mellitus intermission coordinator insulin use: without intermission coordinator use Qualified Code(s): E11.9 - Type 2 diabetes mellitus without complications (7) Right ureteral calculus: Status: Acute Amanda Simpson is a 64 year old female past medical history significant for hypertension hyperlipidemia diabetes mellitus for complex multivessel coronary artery disease underwent CABG 04/12/20. Postop patient was transferred to ICU. She is intubated and sedated. Chest tube and pacemaker in place. No bleeding or hemodynamic issues at the moment. Consult follow up called for evaluation of postoperative extubation. NEURO: # Acute post-op pain: Percocet, Fentanyl and Morphine PRN # Sedation: On Propofol gtt - wean off sedation in am to facilitate SBT # Physical Therapy once pt is extuabted PULM: # Acute respiratory failure s/p CABG - tolerating Spontaneous with PS 10 and PEEP of 8; 40% FIO2 - AB.35/43/91 on SIMV 40/10/15 Yesterday pm - CXR:congestion improved compared to yesterday but bibasilar atelectasis noted - negative -1.5 L over last 24 hours -Weaning parameters acceptable today morning and patient is awake good for extubation -Patient needs incentive spirometry after extubation CVS: # S/p CABG X [address] Lerma on 04/12/20 - Off Dobutamine - hemodynamically stable - Lasix 20 mg x doses given over the last 24 hours - Recommended to schedule Lasix 20 mg twice daily - Monitor I & O and chest tube out put - managed as per CV Surgery - On ASA/Statin - hold b-blockers currently # Paroxysmal A.fib: currently in sinus On Amiodarone 200mg PO bid prophylactically - cardiology recs appreciated RENAL/: - Post op day 2 : negative -1.5 L over last 24 hour - Monitor BUN/Cr & Electrolytes & urine output - Monitor electrolytes and supplement accordingly to keep potassium > 4 and mg >2 - DC IVF # Right ureteral calculus: Status post ureter stent. Continue to monitor urine output GI: - started Bowel Regimen - Nutrition: NPO # GI PPX: PPI ENDO: # H/O DM # FSBS Trend - 88-150 # Continue Insulin drip and monitor FSBS # Hypothyroid - Resume Levothyroxine 100 mcg PO daily HEM: # Hb/hct - stable # Chest tube output < 150 - managed as CV surgery # Currently no Need for transfusion # DVT prophylaxis: Resume as determined by CV surgery ID: # On Perioperative abx as per CV surgery # Currently no fever or WBC # Code status:Full code # Disposition: ICU Case discussed and recommendations conveyed to Dr. Lerma Attestations Medical Necessity Statement*: Postop day #2 status post CABG Time Spent in Patient Care: 16 - 35 minutes Coding Level of Care Code Established Pt Acute Varnishing Unit Tool Setter for Chg Fwd Patient Type Established Medical Decision Making High Complexity Diagnoses Endotracheally intubated Z97.8 Status post coronary artery bypass graft Z95.1 CAD (coronary artery disease), [place] coronary artery I25.119 Associated angina: with unspecified angina [place] vs. transplanted heart: [place] heart Atrial fibrillation I48.0 Atrial fibrillation type: paroxysmal Essential hypertension I10 DM type 2 (diabetes mellitus, type 2) E11.9 Diabetes mellitus complication status: without complication Diabetes mellitus jail insulin use: without intermission coordinator use Right ureteral calculus N20.1 Time Spent (min) 35
[2020-04-14] MEDS: fentaNYL 50 mcg/mL INJ 2mL IVP ×2 (12:23→20:19)
--- NOTE | 2020-04-14 14:10 | PC.NURSE ---
ART Line & Cordis Removal Arterial line and cordis removed per order. Fentanyl given pre-procedure. Pressure held until hemostasis achieved. No hematoma formed. Covered with 2x2 and tegaderm. New peripheral IV placed in right wrist.
--- NOTE | 2020-04-14 14:44 | PC.RESP ---
extubated pt extubated and plaed on 4lpm nc tolerated well
--- NOTE | 2020-04-14 14:52 | PC.OT ---
Will hold OT evaluation until tomorrow as patient has just been extubated
[2020-04-14 18:13] LABS: Glucose Point of Care 82 mg/dL (70-110)
[2020-04-14 18:13] LABS: Glucose Point of Care 90 mg/dL (70-110)
[2020-04-14 18:13] LABS: Glucose Point of Care 95 mg/dL (70-110)
[2020-04-14 18:13] LABS: Glucose Point of Care 171 mg/dL (70-110)
[2020-04-14 18:13] LABS: Glucose Point of Care 83 mg/dL (70-110)
[2020-04-14 18:13] LABS: Glucose Point of Care 92 mg/dL (70-110)
[2020-04-14 18:13] LABS: Glucose Point of Care 94 mg/dL (70-110)
[2020-04-14 18:13] LABS: Glucose Point of Care 100 mg/dL (70-110)
[2020-04-14 18:13] LABS: Glucose Point of Care 121 mg/dL (70-110)
[2020-04-14 18:13] LABS: Glucose Point of Care 82 mg/dL (70-110)
[2020-04-14 18:13] LABS: Glucose Point of Care 91 mg/dL (70-110)
[2020-04-14 18:13] LABS: Glucose Point of Care 87 mg/dL (70-110)
[2020-04-14 18:13] LABS: Glucose Point of Care 93 mg/dL (70-110)
[2020-04-14 18:13] LABS: Glucose Point of Care 87 mg/dL (70-110)
[2020-04-14 18:13] LABS: Glucose Point of Care 92 mg/dL (70-110)
--- NOTE | 2020-04-14 18:17 | P.PN_ITS ---
Subjective Subjective: Interval history: Extubated. Does not voice any complaint Medications: Reviewed: Yes Vitals/I&O/Wt Last Vital Signs Temp 97.3 F L 04/14/20 05:22 Pulse 102 H 04/14/20 17:00 Resp 18 04/14/20 17:00 BP 99/55 04/14/20 17:00 Pulse Ox 99 04/14/20 17:00 04/14/20 04/14/20 04/14/20 06:59 14:59 22:59 Intake Total 100 / 902.148 Output Total 1067 / 2274 320 / 320 Balance -967 / -1371.852 -320 / -320 Weight last 48 hrs Weight 248 lb 11.2 oz Weight 250 lb 3.2 oz Physical Exam Narrative: EXAM NARRATIVE: GENERAL: Patient awake and oriented sitting in the chair NECK: No jugular vein distension. HEENT: No cyanosis. No icterus. No pallor. HEART: Regular S1 and S2. No murmur, rub or gallop. LUNGS: Clear to auscultate bilaterally. ABDOMEN: Soft, nontender and nondistended. no bowel sounds. No guarding, rebound or tenderness. CENTRAL NERVOUS SYSTEM: Grossly nonfocal. EXTREMITIES: Lower extremities trace edema bilaterally. Urinary Catheter Management^: Dill: Cath Placed During This Visit: yes Reason for Continuing Indwelling Catheter: Accurate Measurement of Urinary Output in Critically Ill Patients Urinary Catheter Date of Insertion: 04/12/20 Urinary Catheter Time of Insertion: 07:26 Data : 04/14/20 04:49 04/14/20 04:49 A&P Assessment and plan (1) CAD (coronary artery disease), [place] coronary artery: Post CABG day 3 stable and extubated. Continue management as per CT surgery. Metoprolol was initiated continue aspirin statin Status: Acute Qualifiers: [place] vs. transplanted heart: [place] heart Associated angina: with unspecified angina Qualified Code(s): I25.119 - Atherosclerotic heart disease of [place] coronary artery with unspecified angina pectoris Attestations Medical Necessity Statement*: Require continuation hospitalization for above defined care. Coding Level of Care Code Established Pt Acute Vice President Of Nursing for [facility] [place] Patient Type Established History Expanded Problem Focused Exam Expanded Problem Focused Medical Decision Making Moderate Complexity Diagnoses CAD (coronary artery disease), [place] coronary artery I25.119 [place] vs. transplanted heart: [place] heart Associated angina: with unspecified angina
[2020-04-14] MEDS: levofloxacin-dextrose 5 % 500 MG/100 ML PREMIX 100 MG IV (18:24)
[2020-04-14] MEDS: atorvastatin 40 mg Tablet PO (21:10)
[2020-04-14] MEDS: morphine 4 mg/mL SDV 1 mL 2 MG IVP (21:10)
[2020-04-14 21:40] LABS: Glucose Point of Care 135 mg/dL (70-110)
[2020-04-14] MEDS: docusate sodium 100 mg Capsule PO (22:38)
--- NOTE | 2020-04-14 23:00 | PC.NURSE ---
Urine Output Dr. Lerma notified of urine output 80ml in 4 hrs. No new orders. Urine remains dark brown/cloudy with sediment. Will continue to monitor.
[2020-04-15] VITALS (37 sets, daily range): BP systolic 105–160; BP diastolic 50–82; PULSE 77–102; RESP 13–34; TEMP 36.6–37.4; O2SAT 92–100
[2020-04-15] MEDS: fentaNYL 50 mcg/mL INJ 2mL IVP ×3 (01:28→22:41)
[2020-04-15] MEDS: oxyCODONE-APAP 5-325 mg Tablet PO ×2 (04:46→17:58)
[2020-04-15 05:42] LABS: Basophils % 0.3 %; Eosinophils # 0.2 10^3/uL (0.0-0.8); Eosinophils % 1.7 %; Hematocrit 33.1 % (37.0-47.0); Lymphocytes # 1.7 10^3/uL (0.8-4.8); Mean Corpuscular HGB Conc 30.2 g/dL (30.0-36.0); Mean Corpuscular Hemoglobin 30.4 pg (28.0-34.0); Mean Corpuscular Volume 100.6 fL (81-99); Monocytes # 1.4 10^3/uL (0.2-0.9); Monocytes % 10.2 %; Neutrophils # 9.87 10^3/uL (1.8-7.7); Nucleated Red Blood Cells % 0 %; Platelet Count 202 10^3/cmm (130-400); Red Blood Count 3.29 10^6/uL (4.1-5.3); White Blood Count 13.3 10^3/uL (4.0-10.0)
--- NOTE | 2020-04-15 05:54 | PM.PN ---
Subjective Subjective: Interval history: Postop day #3 status post CABG x2. Extubated without difficulty yesterday. Uneventful night. Urine is noted to be fairly hemorrhagic past [address] I [address] inform [address] Tran as she does have a ureteral stent in position. Still with some peripheral edema and probably continues to have some third space fluid. White count remains around 13,000. H&H is stable. Platelet count 200,000. Chest x-ray is relatively clear. Chemistries are still pending this morning. Vitals/I&O/Wt Last Vital Signs Temp 99.4 F 04/15/20 05:47 Pulse 90 04/15/20 04:00 Resp 18 04/15/20 04:46 BP 123/64 04/15/20 04:00 Pulse Ox 100 04/15/20 04:46 04/14/20 04/14/20 04/15/20 14:59 22:59 06:59 Intake Total 240 / 240 200 / 440 Output Total 320 / 320 633 / 953 205 / 1158 Balance -320 / -320 -393 / -713 -5 / -718 Weight last 48 hrs Weight 250 lb 8 oz Weight 248 lb 11.2 oz Physical Exam Chest: COMMONS NORMALS: normal inspection of the chest (Wound VAC and support lines are in position.) and normal palpation of entire chest wall (Stable to palpation.) Resp: COMMON NORMALS: clear to auscultation bilaterally (Though still needs some work with incentive spirometry.) AUSCULTATION: clear to auscultation bilaterally (Though still needs some work with incentive spirometry.) Cardio: COMMON NORMALS: regular rate, regular rhythm, S1 normal heart sound present, No gallops present (Cardio), No murmurs present (Cardio) and No rub (Cardio) RATE: regular rate RHYTHM: regular rhythm HEART SOUNDS: S1 normal heart sound present Extremity: GENERAL: Yes edema Urinary Catheter Management^: Dill: Cath Placed During This Visit: yes Reason for Continuing Indwelling Catheter: Accurate Measurement of Urinary Output in Critically Ill Patients Urinary Catheter Date of Insertion: 04/12/20 Urinary Catheter Time of Insertion: 07:26 Data : 04/15/20 05:28 04/14/20 04:49 A&P Assessment and plan (1) Status post coronary artery bypass graft: Postop day #3 status post CABG. Out of bed in chair. Increase activities. I will consider discontinuing mediastinal and pleural drains later today after evaluation of output. Consider further diuresis secondary to third spaced fluid. I will await review of this morning's BMP. Resume beta-kassy. Continue aspirin. Add statin. CBC, BMP, chest x-ray in a.m. Greatly appreciate the expertise and assistance of our cardiology and pulmonary colleagues. Status: Acute Attestations Medical Necessity Statement*: Postop day #3 status post CABG Time Spent in Patient Care: 16 - 35 minutes Coding Level of Care Code Acute Epic [employer] for Chg Fwd Diagnoses Status post coronary artery bypass graft Z95.1
--- NOTE | 2020-04-15 06:00 | XR_ITS ---
WS: [id number] CHEST XRAY TECHNIQUE: Portable chest. CLINICAL INFORMATION: POD #3 status post CABG COMPARISON: April 14, 2020 FINDINGS: Left chest tube in place. No definite visualized pneumothorax. Heart: Cardiomegaly. Sternotomy. Mediastinal drains. Lungs: Mild bibasilar congestion. Small bilateral pleural effusions. Bones: Normal visualized bony structures. XR/XR chest 1V portable [id number] IMPRESSION: 1. Postoperative sternotomy with mediastinal drains. 2. Left chest tube in place. No definite visualized pneumothorax. 3. Trace pleural fluid. 4. Stable cardiomegaly.
[2020-04-15 06:04] LABS: Anion Gap 11.9 (5-19); Blood Urea Nitrogen 21 mg/dL (8-23); Calcium 7.4 mg/dL (8.5-10.5); Carbon Dioxide 25 mmol/L (22-29); Chloride 108 mmol/L (98-107); Glomerular Filtration Rate 63.4 mL/min (90-130); Glucose 136 mg/dL (65-115); Osmolality Calculated 291 mOsm/kg (285-295); Potassium 3.9 mmol/L (3.5-5.1); Sodium 141 mmol/L (136-145)
[2020-04-15 08:06] LABS: Glucose Point of Care 121 mg/dL (70-110)
[2020-04-15] MEDS: amiodarone 200 mg Tablet PO ×2 (08:21→17:58)
[2020-04-15] MEDS: aspirin 81 mg Chew Tablet PO (08:22)
[2020-04-15] MEDS: metoprolol tartrate 25 mg Tablet PO (08:22)
[2020-04-15] MEDS: chlorhexidine gluconate 0.12% Btl 473 mL 15 ML MUCOUS MEM ×2 (10:05→18:02)
--- NOTE | 2020-04-15 11:43 | PM.PN ---
Subjective Subjective: Interval history: Patient is sitting in chair denies any complaint had brief episode of bradycardia mostly vagal Medications: Reviewed: Yes Vitals/I&O/Wt Last Vital Signs Temp 98.5 F 04/15/20 08:00 Pulse 90 04/15/20 11:07 Resp 16 04/15/20 11:06 BP 144/73 04/15/20 11:00 Pulse Ox 95 04/15/20 11:06 04/14/20 04/15/20 04/15/20 22:59 06:59 14:59 Intake Total 340 / 340 200 / 540 700 / 700 Output Total 633 / 953 205 / 1158 Balance -293 / -613 -5 / -618 681 / 681 Weight last 48 hrs Weight 250 lb 8 oz Weight 248 lb 11.2 oz Physical Exam Narrative: EXAM NARRATIVE: GENERAL: Patient awake and oriented sitting in the chair NECK: No jugular vein distension. HEENT: No cyanosis. No icterus. No pallor. HEART: Regular S1 and S2. No murmur, rub or gallop. LUNGS: Clear to auscultate bilaterally. ABDOMEN: Soft, nontender and nondistended. no bowel sounds. No guarding, rebound or tenderness. CENTRAL NERVOUS SYSTEM: Grossly nonfocal. EXTREMITIES: Lower extremities 1+ edema bilaterally. Urinary Catheter Management^: Dill: Cath Placed During This Visit: yes Reason for Continuing Indwelling Catheter: Accurate Measurement of Urinary Output in Critically Ill Patients Urinary Catheter Date of Insertion: 04/12/20 Urinary Catheter Time of Insertion: 07:26 Data : 04/15/20 05:28 04/15/20 05:28 A&P Assessment and plan (1) Status post coronary artery bypass graft: Status post day 3 doing fine from a cardiovascular perspective appear to be slightly volume overloaded may well give Lasix 20 mg IV. Continue aspirin statin beta-kassy as per surgery. Status: Acute (2) Atrial fibrillation: Continue amiodarone p.o. 200 mg twice daily Status: Acute Qualifiers: Atrial fibrillation type: paroxysmal Qualified Code(s): I48.0 - Paroxysmal atrial fibrillation Attestations Medical Necessity Statement*: Patient require continuation hospitalization for above defined care. Coding Level of Care Code Established Pt Acute Manhole Stripper for Chg Fwd Patient Type Established History Expanded Problem Focused Exam Expanded Problem Focused Medical Decision Making Moderate Complexity Diagnoses Status post coronary artery bypass graft Z95.1 Atrial fibrillation I48.0 Atrial fibrillation type: paroxysmal
[2020-04-15] MEDS: potassium chloride ER 10 mEq Tablet 20 MEQ PO (12:23)
[2020-04-15] MEDS: FUROsemide 10 mg/mL SDV 2mL 20 MG IVP (12:24)
[2020-04-15 12:38] LABS: Glucose Point of Care 128 mg/dL (70-110)
[2020-04-15 16:58] LABS: Glucose Point of Care 95 mg/dL (70-110)
[2020-04-15] MEDS: levofloxacin-dextrose 5 % 500 MG/100 ML PREMIX 100 MG IV (17:58)
[2020-04-15] MEDS: metoprolol tartrate 50 mg Tablet PO (18:01)
[2020-04-15] MEDS: mupirocin oint 22 gm 1 APPLIC NASAL (18:02)
[2020-04-15] MEDS: docusate sodium 100 mg Capsule PO (20:57)
[2020-04-15] MEDS: atorvastatin 40 mg Tablet PO (20:57)
[2020-04-15 20:59] LABS: Glucose Point of Care 149 mg/dL (70-110)
[2020-04-15] MEDS: sodium chloride 0.9% 1,000 ML 30 ML IV (20:59)
[2020-04-16] VITALS (24 sets, daily range): BP systolic 92–164; BP diastolic 55–89; PULSE 75–99; RESP 12–32; TEMP 36.6–37.3; O2SAT 91–100
[2020-04-16] MEDS: oxyCODONE-APAP 5-325 mg Tablet PO ×3 (01:22→20:18)
[2020-04-16] MEDS: morphine 4 mg/mL SDV 1 mL 2 MG IVP (04:34)
--- NOTE | 2020-04-16 06:00 | XRR_ITS ---
PROCEDURE INFORMATION: Exam: XR Chest, 1 View Exam date and time: 04/16/2020 6:35 AM Age: 64 years old Clinical indication: Chest pain; Other: Diuresing; Prior surgery; Surgery date: 3-7 days post-operative; Surgery type: Cabg; Additional info: Postop day #4 status post cabg, diuresing TECHNIQUE: Imaging protocol: XR of the chest Views: 1 view. COMPARISON: CR XR chest 1V portable [id number] 04/15/2020 5:22 AM FINDINGS: Tubes, catheters and devices: Left thoracostomy tube present. Lungs: Right epicardial fat pad versus volume loss in the right lung base, present before. Pleural space: No pneumothorax. No gross pleural effusion. Heart/Mediastinum: The cardiac silhouette is enlarged. Prior CABG. Bones/joints: Prior median sternotomy. XR/XR chest 1V portable [id number] IMPRESSION: Postoperative changes.
--- NOTE | 2020-04-16 07:00 | PC.NURSE ---
Dr Serna at bedside with nightshift nurses, Chest tubes being removed.
[2020-04-16 07:06] LABS: Basophils % 0.2 %; Eosinophils # 0.3 10^3/uL (0.0-0.8); Eosinophils % 3.3 %; Hematocrit 32.8 % (37.0-47.0); Hemoglobin 9.7 g/dL (11.5-15.3); Lymphocytes # 1.7 10^3/uL (0.8-4.8); Lymphocytes % 18.6 %; Mean Corpuscular HGB Conc 29.6 g/dL (30.0-36.0); Mean Corpuscular Hemoglobin 29.7 pg (28.0-34.0); Mean Corpuscular Volume 100.3 fL (81-99); Mean Platelet Volume 10.7 fL (7.4-10.4); Monocytes % 10.8 %; Neutrophils # 6.17 10^3/uL (1.8-7.7); Neutrophils % 66.7 %; Nucleated Red Blood Cells % 0 %; Platelet Count 202 10^3/cmm (130-400); Red Blood Count 3.27 10^6/uL (4.1-5.3); Red Cell Distribution Width 16.4 % (12.1-15.1); White Blood Count 9.3 10^3/uL (4.0-10.0)
[2020-04-16 07:43] LABS: Glucose Point of Care 85 mg/dL (70-110)
[2020-04-16 08:04] LABS: Anion Gap 12.5 (5-19); Blood Urea Nitrogen 14 mg/dL (8-23); Calcium 7.7 mg/dL (8.5-10.5); Carbon Dioxide 24 mmol/L (22-29); Chloride 106 mmol/L (98-107); Glomerular Filtration Rate 84.8 mL/min (90-130); Glucose 133 mg/dL (65-115); Osmolality Calculated 286 mOsm/kg (285-295); Potassium 3.5 mmol/L (3.5-5.1); Sodium 139 mmol/L (136-145)
[2020-04-16] MEDS: aspirin 325 mg EC Tablet PO (08:38)
[2020-04-16] MEDS: amiodarone 200 mg Tablet PO ×2 (08:38→18:40)
[2020-04-16] MEDS: metoprolol tartrate 50 mg Tablet PO ×2 (08:41→18:41)
[2020-04-16] MEDS: mupirocin oint 22 gm 1 APPLIC NASAL ×2 (09:53→18:41)
[2020-04-16] MEDS: chlorhexidine gluconate 0.12% Btl 473 mL 15 ML MUCOUS MEM (09:53)
[2020-04-16 11:11] LABS: Glucose Point of Care 130 mg/dL (70-110)
--- NOTE | 2020-04-16 13:05 | P.PN_ITS ---
Subjective Subjective: Interval history: Postop day #4 status post CABG. Up in chair this morning. Has made to laps around the ICU. Good report from the nurses and physical therapy. Low mediastinal drain output. Mediastinal and pleural drains were removed as well as pacing wires. Wound VAC dressing removed. Sternotomy incision is clean, dry, and intact. Pain with Betadine and recovered. Intake and output was +500 cc. Chest x-ray is clear. Dr. Blas suspects some mild volume overload. Vitals/I&O/Wt Last Vital Signs Temp 98.8 F 04/16/20 07:30 Pulse 81 04/16/20 07:30 Resp 22 H 04/16/20 08:40 BP 134/89 04/16/20 07:30 Pulse Ox 99 04/16/20 08:40 04/15/20 04/16/20 04/16/20 22:59 06:59 14:59 Intake Total 700.5 / 3300.0 120 / 3420.0 390.5 / 390.5 Output Total 382 / 401 481 / 882 Balance 318.5 / 2899.0 -361 / 2538.0 390.5 / 390.5 Weight last 48 hrs Weight 253 lb 14.4 oz Weight 250 lb 8 oz Physical Exam Chest: COMMONS NORMALS: normal inspection of the chest (Incision line intact.) and normal palpation of entire chest wall (Sternum stable) Resp: COMMON NORMALS: normal respiratory effort, No retractions, No use of accessory muscles and clear to auscultation bilaterally EFFORT & INSPECTION: Yes able to speak in complete sentences AUSCULTATION: clear to auscultation bilaterally Cardio: COMMON NORMALS: regular rate, regular rhythm, S1 normal heart sound present, No gallops present (Cardio), No murmurs present (Cardio) and No rub (Cardio) RATE: regular rate RHYTHM: regular rhythm HEART SOUNDS: S1 normal heart sound present PERIPHERAL PULSES: radial pulses present positive bilateral 2+ Extremity: GENERAL: Yes edema (Still with bit of edema, though improving.) Urinary Catheter Management^: Dill: Cath Placed During This Visit: yes Reason for Continuing Indwelling Catheter: Accurate Measurement of Urinary Output in Critically Ill Patients Urinary Catheter Date of Insertion: 04/12/20 Urinary Catheter Time of Insertion: 07:26 Data : 04/16/20 06:15 07/17/20 06:15 A&P Assessment and plan (1) Status post coronary artery bypass graft: Postop day #4 status post CABG. Plan: Mediastinal/pleural drains removed. Pacer wires removed. Wound VAC dressing removed. Lasix 20 mg p.o. now Will transfer to intermediate care pending bed availability. Greatly appreciate the expertise and oversight of Dr. Blas and Dr. Arana. Status: Acute Attestations Medical Necessity Statement*: Postop day #4 status post CABG Time Spent in Patient Care: Greater than 35 minutes Coding Level of Care Code Acute Cash Applications Coordinator for Chg Fwd Diagnoses Status post coronary artery bypass graft Z95.1
[2020-04-16] MEDS: FUROsemide 20 mg Tablet PO (13:15)
--- NOTE | 2020-04-16 16:10 | PM.PN ---
Subjective Subjective: Interval history: Feeling better. Chest tubes are out still has not passed stool Vitals/I&O/Wt Last Vital Signs Temp 98.3 F 04/16/20 14:00 Pulse 85 04/16/20 15:47 Resp 16 04/16/20 15:47 BP 143/79 04/16/20 15:00 Pulse Ox 98 04/16/20 15:47 04/16/20 04/16/20 04/16/20 06:59 14:59 22:59 Intake Total 120 / 3420.0 1240.5 / 1240.5 Output Total 481 / 882 Balance -361 / 2538.0 1240.5 / 1240.5 Weight last 48 hrs Weight 253 lb 14.4 oz Weight 250 lb 8 oz Physical Exam Narrative: EXAM NARRATIVE: GENERAL: Patient is alert, awake and oriented x3. NECK: No jugular vein distension. HEENT: No cyanosis. No icterus. No pallor. HEART: Regular S1 and S2. No murmur, rub or gallop. LUNGS: Clear to auscultate bilaterally. ABDOMEN: Soft, nontender and nondistended. Positive bowel sounds. No guarding, rebound or tenderness. CENTRAL NERVOUS SYSTEM: Grossly nonfocal. EXTREMITIES: Lower extremities with 1+ edema bilaterally. Pulses palpable in the lower extremities, both dorsalis pedis and posterior tibial. Urinary Catheter Management^: Dill: Cath Placed During This Visit: yes Reason for Continuing Indwelling Catheter: Accurate Measurement of Urinary Output in Critically Ill Patients Urinary Catheter Date of Insertion: 04/12/20 Urinary Catheter Time of Insertion: 07:26 Data : 04/16/20 06:15 04/16/20 06:15 A&P Assessment and plan (1) Status post coronary artery bypass graft: Status post CABG. Chest tubes are out appear to be stable. Continue to optimize medicine with beta-kassy ARB and statin. Status: Acute (2) Atrial fibrillation: Continues with sinus rhythm. Continue current regimen and amiodarone. I will start patient on Eliquis for anticoagulation due to atrial fibrillation Status: Acute Qualifiers: Atrial fibrillation type: paroxysmal Qualified Code(s): I48.0 - Paroxysmal atrial fibrillation (3) Essential hypertension: Stable and well-controlled. Continue med Status: Acute Attestations Medical Necessity Statement*: Patient require continuation hospitalization for above defined care. Coding Level of Care Code Established Pt Acute Hemming And Tacking Machine Operator for Chg Fwd Patient Type Established History Expanded Problem Focused Exam Expanded Problem Focused Medical Decision Making Moderate Complexity Diagnoses Status post coronary artery bypass graft Z95.1 Atrial fibrillation I48.0 Atrial fibrillation type: paroxysmal Essential hypertension I10
[2020-04-16 16:50] LABS: Glucose Point of Care 124 mg/dL (70-110)
[2020-04-16] MEDS: duloxetine 60 mg Capsule PO (18:40)
[2020-04-16] MEDS: apixaban 5 mg Tablet PO (18:41)
--- NOTE | 2020-04-16 19:36 | PC.NURSE ---
pt attempted to have a bm on beside commode. no success. passed gas. tolerated moving from beside commode to bed well with walker. pt now resting in bed. Dill removed as well balloon intact.
--- NOTE | 2020-04-16 19:43 | PC.NURSE ---
pt alert and oriented x4. clear lungs sounds in all lobes . bowel sounds present in all quadrants. dependent 2+ edema in legs while in chair and beside commode. pedal pulsed present. chest incision and dressing dry and intact. donor incision site on right leg looks good and approximated pt tolerated removal of Dill catheter well. resting comfortably in bed now
[2020-04-16 20:15] LABS: Glucose Point of Care 106 mg/dL (70-110)
[2020-04-16] MEDS: atorvastatin 40 mg Tablet PO (20:19)
--- NOTE | 2020-04-16 21:22 | PC.NURSE ---
pt talking with on the phone. states pain is a 3 on 0-10 scale.
[2020-04-17] VITALS (14 sets, daily range): BP systolic 100–159; BP diastolic 56–106; PULSE 81–96; RESP 16–26; TEMP 36.4–36.9; O2SAT 85–98; BMI 49.6
[2020-04-17] MEDS: levoFLOXacin 500 mg Tablet PO (05:33)
[2020-04-17] MEDS: ondansetron 2 mg/ML SDV 2 mL 4 MG IVP (06:00)
--- NOTE | 2020-04-17 06:13 | PC.NURSE ---
pt rested well through the night, up to chair at 0545.
[2020-04-17 07:21] LABS: Glucose Point of Care 107 mg/dL (70-110)
[2020-04-17] MEDS: oxyCODONE-APAP 5-325 mg Tablet PO (09:15)
[2020-04-17] MEDS: metoprolol tartrate 50 mg Tablet PO ×2 (09:15→17:50)
[2020-04-17] MEDS: losartan 50 mg Tablet 100 MG PO (09:15)
[2020-04-17] MEDS: apixaban 5 mg Tablet PO ×2 (09:15→17:49)
[2020-04-17] MEDS: aspirin 325 mg EC Tablet PO (09:15)
[2020-04-17] MEDS: levothyroxine 100 mcg Tablet PO (09:15)
[2020-04-17] MEDS: duloxetine 60 mg Capsule PO ×2 (09:15→17:49)
[2020-04-17] MEDS: amiodarone 200 mg Tablet PO ×2 (09:16→17:49)
[2020-04-17] MEDS: FUROsemide 20 mg Tablet PO (09:16)
[2020-04-17] MEDS: mupirocin oint 22 gm 1 APPLIC NASAL ×2 (09:17→17:50)
[2020-04-17] MEDS: tamsulosin 0.4 mg Capsule PO (09:17)
[2020-04-17] MEDS: chlorhexidine gluconate 0.12% Btl 473 mL 15 ML MUCOUS MEM ×2 (09:17→17:50)
[2020-04-17 11:45] LABS: Glucose Point of Care 88 mg/dL (70-110)
[2020-04-17 17:26] LABS: Glucose Point of Care 136 mg/dL (70-110)
--- NOTE | 2020-04-17 17:27 | PM.PN ---
Subjective Subjective: Interval history: Denies any complaint today. She had a good bowel movement. Stable vital ascencio. She is waiting to go on the second floor pertaining to availability of the room Medications: Reviewed: Yes Vitals/I&O/Wt Last Vital Signs Temp 98.3 F 04/17/20 14:00 Pulse 96 04/17/20 17:00 Resp 18 04/17/20 17:00 BP 154/71 04/17/20 17:00 Pulse Ox 93 04/17/20 17:00 04/17/20 04/17/20 04/17/20 06:59 14:59 22:59 Intake Total 750 / 2390.5 750 / 750 Output Total 225 / 1775 650 / 650 Balance 525 / 615.5 100 / 100 Weight last 48 hrs Weight 253 lb 14.4 oz Weight 253 lb 14.4 oz Physical Exam Narrative: EXAM NARRATIVE: GENERAL: Patient is alert, awake and oriented x3. NECK: No jugular vein distension. HEENT: No cyanosis. No icterus. No pallor. HEART: Regular S1 and S2. No murmur, rub or gallop. LUNGS: Clear to auscultate bilaterally. ABDOMEN: Soft, nontender and nondistended. Positive bowel sounds. No guarding, rebound or tenderness. CENTRAL NERVOUS SYSTEM: Grossly nonfocal. EXTREMITIES: Lower extremities with 1+ edema bilaterally. Urinary Catheter Management^: Dill: Cath Placed During This Visit: yes, but has since been removed by the nurse Reason for Continuing Indwelling Catheter: Decision to DC Catheter Urinary Catheter Date of Insertion: 04/12/20 Urinary Catheter Time of Insertion: 07:26 Date Urinary Catheter Removed: 04/16/20 Time Urinary Catheter Discontinued: 19:15 Data : 04/16/20 06:15 04/16/20 06:15 A&P Assessment and plan (1) Status post coronary artery bypass graft: Stable doing fine from a coronary disease perspective status post CABG day 4. Continued to optimize medicine. Patient is on statin beta-kassy aspirin and isosorbide mononitrate along with ARB Status: Acute (2) Atrial fibrillation: Patient is sinus rhythm. Continue amiodarone. Continue anticoagulation Status: Acute Qualifiers: Atrial fibrillation type: paroxysmal Qualified Code(s): I48.0 - Paroxysmal atrial fibrillation (3) Essential hypertension: Well-controlled continue medicine Status: Acute Attestations Medical Necessity Statement*: Patient require continuation of hospitalization for above defined care plan Coding Level of Care Code Established Pt Acute Wedding Makeup Artist for Chg Fwd Patient Type Established History Expanded Problem Focused Exam Expanded Problem Focused Medical Decision Making Moderate Complexity Diagnoses Status post coronary artery bypass graft Z95.1 Atrial fibrillation I48.0 Atrial fibrillation type: paroxysmal Essential hypertension I10
--- NOTE | 2020-04-17 17:30 | PC.NURSE ---
Report faxed to [facility]. Further verbal report given to Francheska.
--- NOTE | 2020-04-17 18:00 | PC.NURSE ---
P transferred to [facility]. All belongings with pt. came along to see pt's new room.
[2020-04-17 20:41] LABS: Glucose Point of Care 110 mg/dL (70-110)
[2020-04-17] MEDS: atorvastatin 40 mg Tablet PO (20:53)
[2020-04-18] VITALS (9 sets, daily range): BP systolic 127–159; BP diastolic 66–83; PULSE 71–99; RESP 16–18; TEMP 36.5–36.9; O2SAT 92–96
[2020-04-18] MEDS: levoFLOXacin 500 mg Tablet PO (06:16)
--- NOTE | 2020-04-18 07:53 | P.PN_ITS ---
Subjective Subjective: Interval history: Postop day #6 status post CABG. Up in chair on rounds. Looks quite good. Nausea has resolved. No arrhythmias reported by nursing service. Good bowel movement yesterday. Continues to have flatus. In good spirits. Eager for discharge home. Vitals/I&O/Wt Last Vital Signs Temp 97.9 F 04/18/20 04:00 Pulse 90 04/18/20 04:00 Resp 18 04/18/20 04:00 BP 132/73 04/18/20 04:00 Pulse Ox 92 04/18/20 04:00 04/17/20 04/18/20 04/18/20 22:59 06:59 14:59 Intake Total 300 / 1050 480 / 1530 Output Total 300 / 950 Balance 0 / 100 480 / 580 Weight last 48 hrs Weight 253 lb 14.4 oz Physical Exam Chest: COMMONS NORMALS: normal inspection of the chest (Chest wall is stable. Incision line remains intact and dry.) and normal palpation of entire chest wall Resp: COMMON NORMALS: normal respiratory effort, No retractions, No use of accessory muscles and clear to auscultation bilaterally AUSCULTATION: clear to auscultation bilaterally OTHER: She is able to pull between 1012 50 on incentive spirometry. Our goal is 1500. Cardio: COMMON NORMALS: regular rate, regular rhythm, S1 normal heart sound present, No gallops present (Cardio), No murmurs present (Cardio) and No rub (Cardio) RATE: regular rate RHYTHM: regular rhythm HEART SOUNDS: S1 normal heart sound present PERIPHERAL PULSES: radial pulses present positive bilateral 2+ Extremity: COMMON NORMALS: normal to inspection OTHER: There is still just a bit of lower extremity edema though clearly improved. Upper extremity edema has resolved. Urinary Catheter Management^: Dill: Cath Placed During This Visit: yes, but has since been removed by the nurse Reason for Continuing Indwelling Catheter: Decision to DC Catheter Urinary Catheter Date of Insertion: 04/12/20 Urinary Catheter Time of Insertion: 07:26 Date Urinary Catheter Removed: 04/16/20 Time Urinary Catheter Discontinued: 19:15 Data : 04/16/20 06:15 04/16/20 06:15 A&P Assessment and plan (1) Status post coronary artery bypass graft: Postop day #6 status post CABG Plan: No medication adjustments today. Shower today with Betasept and then redress incisions. Plan for discharge to home tomorrow. It is still unclear is whether we will be able to have home health services arranged due to home health availability. I would strongly prefer this. Status: Acute Attestations Medical Necessity Statement*: Postop day #6 Dale post CABG Time Spent in Patient Care: 16 - 35 minutes Coding Level of Care Code Acute Air Cargo Specialist Supervisor for Amna Colunga Diagnoses Status post coronary artery bypass graft Z95.1
[2020-04-18 08:15] LABS: Glucose Point of Care 85 mg/dL (70-110)
[2020-04-18] MEDS: chlorhexidine gluconate 4% Btl 118 mL 1 APPLIC TOPICAL (08:59)
[2020-04-18] MEDS: tamsulosin 0.4 mg Capsule PO (09:01)
[2020-04-18] MEDS: duloxetine 60 mg Capsule PO ×2 (09:01→17:20)
[2020-04-18] MEDS: losartan 50 mg Tablet 100 MG PO (09:01)
[2020-04-18] MEDS: metoprolol tartrate 50 mg Tablet PO ×2 (09:01→17:20)
[2020-04-18] MEDS: apixaban 5 mg Tablet PO ×2 (09:01→17:20)
[2020-04-18] MEDS: aspirin 325 mg EC Tablet PO (09:01)
[2020-04-18] MEDS: chlorhexidine gluconate 0.12% Btl 473 mL 15 ML MUCOUS MEM ×2 (09:01→17:20)
[2020-04-18] MEDS: amiodarone 200 mg Tablet PO ×2 (09:02→17:20)
[2020-04-18] MEDS: FUROsemide 20 mg Tablet PO (09:02)
[2020-04-18] MEDS: levothyroxine 100 mcg Tablet PO (09:02)
[2020-04-18 12:26] LABS: Glucose Point of Care 93 mg/dL (70-110)
--- NOTE | 2020-04-18 14:18 | P.PN_ITS ---
Subjective Subjective: Interval history: Denies any overnight event. Little short of breath when she talks to me could be due to volume overload. Medications: Reviewed: Yes Vitals/I&O/Wt Last Vital Signs Temp 98.0 F 04/18/20 11:25 Pulse 88 04/18/20 11:25 Resp 18 04/18/20 11:25 BP 138/83 04/18/20 11:25 Pulse Ox 96 04/18/20 11:25 04/17/20 04/18/20 04/18/20 22:59 06:59 14:59 Intake Total 300 / 1050 480 / 1530 Output Total 300 / 950 700 / 700 Balance 0 / 100 480 / 580 -700 / -700 Weight last 48 hrs Weight 253 lb 14.4 oz Physical Exam Narrative: EXAM NARRATIVE: GENERAL: Patient is alert, awake and oriented x3. Sternotomy wound looks good under bandage NECK: No jugular vein distension. HEENT: No cyanosis. No icterus. No pallor. HEART: Regular S1 and S2. No murmur, rub or gallop. LUNGS: Clear to auscultate bilaterally. ABDOMEN: Soft, nontender and nondistended. Positive bowel sounds. No guarding, rebound or tenderness. CENTRAL NERVOUS SYSTEM: Grossly nonfocal. EXTREMITIES: Lower extremities without edema bilaterally. Urinary Catheter Management^: Dill: Cath Placed During This Visit: yes, but has since been removed by the nurse Reason for Continuing Indwelling Catheter: Decision to DC Catheter Urinary Catheter Date of Insertion: 04/12/20 Urinary Catheter Time of Insertion: 07:26 Date Urinary Catheter Removed: 04/16/20 Time Urinary Catheter Discontinued: 19:15 Data : 04/16/20 06:15 04/16/20 06:15 A&P Assessment and plan (1) Status post coronary artery bypass graft: Status post bypass surgery day 6. Doing fine from cardiovascular perspective. Appear to be slightly volume overload. I will give him IV Lasix. Continue beta-kassy aspirin statin and vasodilator. She is working with physical therapy. Status: Acute (2) Atrial fibrillation: Patient is in sinus rhythm on Eliquis. Continue meds. We will lower aspirin to 81 mg once a day Status: Acute Qualifiers: Atrial fibrillation type: paroxysmal Qualified Code(s): I48.0 - Paroxysmal atrial fibrillation (3) Right ureteral calculus: She will be following up with Dr. Tran/urology Status: Acute Attestations Medical Necessity Statement*: Patient requires continuation hospitalization most likely discharge tomorrow Coding Level of Care Code Established Pt Acute Ultimate Hoops Referee for Chg Fwd Patient Type Established History Expanded Problem Focused Exam Expanded Problem Focused Medical Decision Making Moderate Complexity Diagnoses Status post coronary artery bypass graft Z95.1 Atrial fibrillation I48.0 Atrial fibrillation type: paroxysmal Right ureteral calculus N20.1
[2020-04-18] MEDS: FUROsemide 10 mg/mL SDV 2mL 20 MG IVP ×2 (15:09→23:41)
[2020-04-18] MEDS: potassium chloride ER 10 mEq Tablet 20 MEQ PO (15:53)
[2020-04-18 17:01] LABS: Glucose Point of Care 162 mg/dL (70-110)
[2020-04-18 20:25] LABS: Glucose Point of Care 138 mg/dL (70-110)
[2020-04-18] MEDS: atorvastatin 40 mg Tablet PO (20:28)
[2020-04-18] MEDS: potassium chloride ER 10 mEq Tablet PO (23:41)
[2020-04-19] VITALS (16 sets, daily range): BP systolic 88–148; BP diastolic 48–78; PULSE 77–100; RESP 16–27; TEMP 36.6–36.8; O2SAT 92–100
[2020-04-19] MEDS: levoFLOXacin 500 mg Tablet PO (06:10)
[2020-04-19 06:31] LABS: Glucose Point of Care 99 mg/dL (70-110)
--- NOTE | 2020-04-19 06:31 | P.DS_ITS ---
Discharge Providers Date of Admission: 04/12/20 15:00 Date of Discharge: April 19, 2020 Attending Provider at Admission: Joey Serna MD Attending Provider at Discharge: Joey Serna MD Primary Care Provider: Antonio Walls DO Diagnoses at Discharge Discharge Diagnosis (1) Status post coronary artery bypass graft: Status: Acute (2) Atrial fibrillation: Status: Acute Qualifiers: Atrial fibrillation type: paroxysmal Qualified Code(s): I48.0 - Paroxysmal atrial fibrillation (3) Right ureteral calculus: Status: Acute Reason for Visit Reason for Visit: CAD Hospital Course Hospital Course: Ms. Simpson is a short statured, obese, 64-year-old female with a complex LAD/diagonal lesion that was identified on left heart catheterization on March [address] Blas as part of continued evaluation for suspected coronary artery disease with a history of progressive chest discomfort with exertion and original presentation with A. fib and RVR and abnormal ST changes on EKG. Due to the configuration and complexity of the lesion after careful consideration between Dr. Blas, myself, and Ms. Simpson and her , it was felt that surgical revascularization should be considered. She underwent outpatient preparation and was separately admitted on April 12 with he underwent two-vessel coronary bypass grafting utilizing in situ left internal mammary artery to the LAD and vein graft to the diagonal artery. Postoperatively, she convalesced in the ICU. She was a slow to wean from the respirator and we simply consulted Dr. Arana from pulmonary medicine who assisted in weaning and subsequent extubation. She has made slow but steady progress through her hospital course. She has a right ureteral stent in position due to calculus and is being followed by Dr. Tran. She has had no arrhythmias postop. She underwent active diuresis with good response. Subsequently, mediastinal and pleural drains were discontinued. She has been very cooperative and good use of incentive spirometry. She had been placed on Levaquin preoperatively empirically due to her ureteral stent and this was continued postoperatively. She was transferred to the intermediate care johnson which continued to do well. Bowel function has returned to normal. No urinary problems. Dill catheter is been removed. Tolerating a diet well. Per our routine, we have recommended home health services, but apparently, there are no available services at this time. I simply recommended consideration for retirement care to allow for 2 weeks of inpatient rehab though she has refused despite my strong concerns and lengthy and very luis felipe conversation with her. She actually had a bit of a stumble last night though she did not fall and was assisted by nursing service. I again discussed my concerns with her, though she does not agree to skilled care. As she has received maximal inpatient hospitalization benefit, we will plan for discharge to home despite my reluctance that she refuses retirement care. At the time of discharge she is in stable condition. She will follow-up with me on April 22. At his request, we schedule follow-up with Dr. Tran in 2 weeks. Physical Exam Chest: COMMONS NORMALS: normal inspection of the chest (Incision line is intact. Sternum stable to palpation.) and normal palpation of entire chest wall Resp: COMMON NORMALS: normal respiratory effort, No retractions, No use of accessory muscles and clear to auscultation bilaterally AUSCULTATION: clear to auscultation bilaterally Cardio: COMMON NORMALS: regular rate, regular rhythm and S1 normal heart sound present RATE: regular rate RHYTHM: regular rhythm HEART SOUNDS: S1 normal heart sound present Extremity: OTHER: There is some swelling of the right lower extremity which is her vein harvest site. We will obtain venous duplex study to rule out DVT prior to discharge. She is already on Eliquis 5 mg twice daily per Dr. Blas for concerns of possible intermittent atrial fibrillation. Fortunately, she has had none during this hospital stay after surgery. Urinary Catheter Management^: Dill: Cath Placed During This Visit: yes, but has since been removed by the nurse Reason for Continuing Indwelling Catheter: Decision to DC Catheter Urinary Catheter Date of Insertion: 04/12/20 Urinary Catheter Time of Insertion: 07:26 Date Urinary Catheter Removed: 04/16/20 Time Urinary Catheter Discontinued: 19:15 Discharge Data Data Completed and Pending: Completed Studies During Hospitalization Category Date Time Status XR chest 1V 86252 Routine Exams 04/12/20 Completed XR chest 1V rosalia ble 69487 Routine Exams 04/12/20 Completed XR chest 1V rosalia ble 13088 Routine Exams 04/12/20 20:19 Completed XR chest 1V rosalia ble 85148 Routine Exams 04/13/20 06:00 Completed XR chest 1V rosalia ble 46675 Routine Exams 04/14/20 05:00 Completed XR chest 1V rosalia ble 82821 Routine Exams 04/15/20 06:00 Completed XR chest 1V rosalia ble 25786 Routine Exams 04/16/20 06:00 Completed XR chest 2V* 7104 6 Routine Exams 04/07/20 09:15 Completed Pending at discharge Category Date Time Status Complete Crossmat ch Routine Lab 04/07/20 09:45 Results Leukocyte Reduced RBC Routine Lab 04/07/20 09:45 Results Leukrd/Plat Phere sis 1st Cont Routi ne Lab 04/07/20 09:45 Results Retype for XM Rou dimitris Lab 04/07/20 09:45 Results Type and Screen - Cardiac Routine Lab 04/07/20 09:45 Results Type and Screen R outine Lab 04/07/20 09:45 [place] [id number] Routin e Ultrasound 04/19/20 06:22 Ordered Labs from last 24 hours 04/19/20 04/18/20 04/18/20 06:23 20:22 16:52 POC Glucose 99 138 162 04/18/20 04/18/20 11:28 08:06 POC Glucose 93 85 Vitals: Last Vital Signs Temp 98.1 F 04/19/20 05:00 Pulse 92 04/19/20 05:00 Resp 18 04/19/20 05:00 BP 134/73 04/19/20 05:00 Pulse Ox 93 04/19/20 05:00 Discharge Plan Discharge Patient Disposition: Home, Self-Care Condition: Stable Prescriptions: [place] 5-325 mg tablet 1 tab PO Q6H PRN (Reason: pain) 14 Days Qty: 30 RF: 0 amiodarone [Pacerone] 200 mg Tablet 200 mg PO BID Qty: 60 RF: 0 Eliquis 5 mg Tablet 5 mg PO BID Qty: 60 RF: 0 Continued tamsulosin 0.4 mg capsule 0.4 mg PO DAILY 30 Days Qty: 30 RF: 1 atenolol 50 mg tablet 50 mg PO DAILY Qty: 30 RF: 6 furosemide 20 mg tablet 20 mg PO DAILY Qty: 30 RF: 6 losartan 100 mg tablet 100 mg PO DAILY Qty: 30 RF: 6 aspirin 81 mg tablet,delayed release (DR/EC) 81 mg PO DAILY Qty: 30 RF: 6 atorvastatin 40 mg tablet 40 mg PO BEDTIME Qty: 30 RF: 6 isosorbide mononitrate 30 mg tablet extended release 24 hr 30 mg PO DAILY Qty: 30 RF: 6 levothyroxine 100 mcg tablet 100 mcg PO DAILY 30 Days Qty: 30 RF: 0 duloxetine 60 mg capsule,delayed release(DR/EC) 60 mg PO BID 30 Days Qty: 60 RF: 0 metformin 500 mg tablet 500 mg PO DAILY Qty: 30 RF: 0 nitroglycerin 0.4 mg tablet, sublingual 0.4 mg SUBLINGUAL Q5M Qty: 30 RF: 2 Discharge Orders: Discharge Order (Routine); Ordered 04/19/20 Ordered By: Joey Serna Referrals: Sumeet Tran MD [Physician] - 2 weeks Joey Serna MD [Physician] - 04/22/20 Discharge Diet: Diabetic Discharge Activity: Limit activity as instructed Activity Restrictions/Additional Instructions: No lifting or pushing more than 5 pounds for the next 8 weeks Use shower chair when showering Dry incisions completely after shower, place gauze between breast and resecure bra. Wear a bra at all times except when showering or cleaning incision Elevate legs as much as possible Keep heart pillow close to allow for support with deep breathing, coughing or sneezing Use incentive spirometer frequently Report any fever, incision redness, increasing chest pain, shortness of breath, productive cough, or incision drainage. Discharge Attestations Time Spent in Discharge Care*: greater than 30 min Specific Discharge Activities: Specific discharge activities: educating patient, discussing with pcp/other providers, discussing with spring encaser/social workers/dc planners, documenting/other paperwork and evaluating patient/reviewing data Status at Discharge: Cognitive status at discharge: cognitively intact , Behavioral status at discharge: cooperative , Quality Metrics Clinical Quality Measures During this hospital stay, did patient experience: None Coding Level of Care Code Acute Corporate Representative for Chg Fwd Diagnoses Status post coronary artery bypass graft Z95.1 Atrial fibrillation I48.0 Atrial fibrillation type: paroxysmal Right ureteral calculus N20.1
--- NOTE | 2020-04-19 06:39 | USCV_ITS ---
Amanda Simpson Age: 64 Gender: F : 1955 Exam Date: 04/19/2020 07:21 Ordering Phys: Joey Serna MD (Andy) ([email or web address]) Technologist: Dana Shea Exam Location: [facility] [place] Indication: Right lower extremity swelling post right gsv harvest HISTORY: Right lower extremity edema. Recent CABG and Rt GSV harvest. PROCEDURES: Venous duplex imaging was performed in only the right lower extremity. The following venous structures were evaluated: common femoral vein, profunda vein, proximal portion of the greater saphenous vein, superficial femoral vein, and the popliteal vein. In addition, the posterior tibial and peroneal trunk were evaluated. FINDINGS: Normal 2-D Doppler and augmentation and compressibility throughout the lower extremity venous structures. Additional imaging through the proximal calf veins also reveals no thrombus. Limited evaluation of the greater saphenous vein due to harvest for CABG. There appears to be a thrombus in the right GSV BK near the incision site. Area of edema noted near medial right knee at incision site. Right EDITORIAL WRITER pseudoaneurysm. Marked increased velocity with to and fro flow. CONCLUSIONS No DVT right lower extremity. Right EDITORIAL WRITER pseudoaneurysm. Report called by ring stamper at time of exam. Dr. Francia Finley DO (Electronically Signed) Final Date: 19 April 2020 09:15 S
--- NOTE | 2020-04-19 08:36 | PC.NURSE ---
Rcvd call from Dr Serna stating to make patient NPO and hold Eliquis and hold discharge. Broker notified Dr Serna that patient ate about 10% of meal.
[2020-04-19] MEDS: levothyroxine 100 mcg Tablet PO (09:39)
[2020-04-19] MEDS: amiodarone 200 mg Tablet PO ×2 (09:40→17:31)
[2020-04-19] MEDS: FUROsemide 20 mg Tablet PO (09:40)
[2020-04-19] MEDS: tamsulosin 0.4 mg Capsule PO (09:40)
[2020-04-19] MEDS: duloxetine 60 mg Capsule PO (09:40)
[2020-04-19] MEDS: metoprolol tartrate 50 mg Tablet PO (09:40)
[2020-04-19] MEDS: losartan 50 mg Tablet 100 MG PO (09:40)
[2020-04-19] MEDS: chlorhexidine gluconate 0.12% Btl 473 mL 15 ML MUCOUS MEM ×2 (09:41→17:31)
[2020-04-19] MEDS: mupirocin oint 22 gm 1 APPLIC NASAL ×2 (09:43→17:32)
--- NOTE | 2020-04-19 10:31 | ANES.PREANE2 ---
Pre-Anesthetic Assessment Pre-Anesthetic Assessment: Height/Weight: Height 1.52 m Weight 115.167 kg Temp Pulse Resp BP Pulse Ox 97.8 F 85 18 138/71 96 04/19/20 07:42 04/19/20 07:42 04/19/20 07:42 04/19/20 09:40 04/19/20 07:42 Preop Diagnosis: Complex LAD/diagonal stenosis Proposed Procedure: Operation Date: 04/12/20 07:00 Proposed Procedures p CABG(Not Applicable) - Joey Serna MD Operation Date: 04/19/20 16:00 Proposed Procedures p Repair of pseudoaneurysm lower extremity(Right) - Joey Serna MD Familial anesthetic complications: none Was Beta Divine taken within 24 hours: Yes Last intake: Intake Patient had bites of sausage and egg at 0800 Last Liquid Date 04/11/20 Last Liquid Time 04:00 Last Solid Date 04/11/20 Last Solid Time 16:30 Exam: Pre-Anes Outpt Exam: alert, oriented x 3, clear to auscultation bilaterally and regular rate & rhythm Airway: Cervical ROM: WNL MP: 3 Dentition: Full CV/HEM: CV/HEM: Afib, CAD and HTN Comments: s/p cabg 04/19 Metabolic: Metabolic: DM, Morbid obesity and Thyroid Anesthetic Plan: ASA status: 4 Anesthesia: MAC Risk of > 500 ml blood loss (7ml/kg in children): No Meds/Allergies Current Medications: Current Medications Generic Name Dose Route Start Last Admin Trade Name Freq PRN Reason Stop Dose Admin Amiodarone HCl 200 mg 04/13/20 18:00 04/19/20 09:40 Cordarone PO 200 mg BID GABRIEL Administration Apixaban 5 mg 04/16/20 18:00 04/19/20 08:38 Eliquis PO Not Given BID GABRIEL Aspirin 325 mg 04/16/20 09:00 04/19/20 09:45 Aspirin Ec PO Not Given DAILY GABRIEL Atorvastatin Calci um 40 mg 04/12/20 21:00 04/18/20 20:28 Lipitor PO 40 mg BEDTIME GABRIEL Administration Chlorhexidine Gluc harper 15 ml 04/12/20 18:00 04/19/20 09:41 Perigard MUCOUS MEM 15 applic BID GABRIEL Administration Chlorhexidine Gluc harper 1 applic 04/18/20 09:00 04/18/20 08:59 Betasept TOPICAL 1 dose DAILY GABRIEL Administration Diphenhydramine HC l 25 mg 04/13/20 15:31 04/13/20 20:45 Benadryl PO 25 mg BEDTIME PRN Administration SLEEP Docusate Sodium 100 mg 04/13/20 15:31 04/15/20 20:57 Colace PO 100 mg BID PRN Administration Constipation (Use 1st) Duloxetine HCl 60 mg 04/16/20 18:00 04/19/20 09:40 Cymbalta PO 60 mg BID GABRIEL Administration Furosemide 20 mg 04/17/20 09:00 04/19/20 09:40 Lasix PO 20 mg DAILY GABRIEL Administration Insulin Aspart 0 unit 04/14/20 08:00 04/19/20 07:07 Novolog SUBCUT Not Given WM&BEDTIME GABRIEL Protocol Levofloxacin 500 mg 04/17/20 06:00 04/19/20 06:10 Levaquin PO 500 mg DAILY@0600 GABRIEL Administration Protocol Levothyroxine Sodi um 100 mcg 04/17/20 09:00 04/19/20 09:39 Synthroid PO 100 mcg DAILY GABRIEL Administration Losartan Potassium 100 mg 04/17/20 09:00 04/19/20 09:40 Cozaar PO 100 mg DAILY GABRIEL Administration Metoprolol Tartrat e 50 mg 04/15/20 18:00 04/19/20 09:40 Lopressor PO 50 mg BID GABRIEL Administration Mupirocin 1 applic 04/12/20 18:00 04/19/20 09:43 Bactroban NASAL 1 applic BID GABRIEL Administration Ondansetron HCl 4 mg 04/12/20 16:41 04/17/20 06:00 Zofran IVP 4 mg Q6H PRN Administration NAUSEA Oxycodone/Acetamin ophen 1 - 2 tab 04/16/20 20:07 04/17/20 09:15 Percocet 5-325 M g PO 1 tab Q4H PRN Administration MODERATE TO SEVER E PAIN Tamsulosin HCl 0.4 mg 04/17/20 09:00 04/19/20 09:40 Flomax PO 0.4 mg DAILY GABRIEL Administration PFSH Anesthesia PFSH: Medical History (Updated 04/13/20 @ 19:20 by Jaxson Arana MD) Abnormal finding on EKG -Noted to have ST depression on EKG -Troponins noted, delta not calculated -Telemetry monitoring -Echo limited study but no noted gross wall motion abnormalities, G1DD -Nuclear stress testing with noted small area of old MT surrounded by moderate area of medium sized neel-infarct ischemia noted in leads to distal anterior wall suggestive of possible lesion in the LAD territory, TID ratio is elevated. Will likely need further evaluation with cardiac catheterization. Results discussed with Dr. Blas. -on aspirin, statin, Plavix, beta-divine. We will hold anticoagulation for planned procedure today. Given non-invasive nature of procedure, do not anticipate higher than average risk for complications -BP controlled, continue to monitor vital signs Anxiety Atrial fibrillation DM type 2 (diabetes mellitus, type 2) Essential hypertension Fibromyalgia GERD (gastroesophageal reflux disease) -on famotidine Hydronephrosis Hypertension -Presented with hypertensive urgency, BP controlled -Continue to monitor vital signs -Continue losartan, Lasix, atenolol Hypothyroidism -TSH wnl -on levothyroxine Right ureteral calculus Surgical History (Updated 04/13/20 @ 19:18 by Jaxson Arana MD) H/O: hysterectomy Family History Grandfather Family history of premature coronary artery disease Grandfather of [place] at age 50 Social History Smoking and tobacco status: never smoked Alcohol intake: never Adopted: No Caregiver/support person: No Lives independently: No Household members: spouse and family Housing: House Marital status: Current occupational status: employed Current gender identity: Female Data Anesthesia CBC & Chem 7: 04/16/20 06:15 04/16/20 06:15 Other Labs: Laboratory Results - last 48 hr 04/07/20 04/17/20 04/17/20 09:45 11:30 17:23 POC Glucose 88 136 Crossmatch See Detail 04/17/20 04/18/20 04/18/20 20:32 08:06 11:28 POC Glucose 110 85 93 Crossmatch 04/18/20 04/18/20 04/19/20 16:52 20:22 06:23 POC Glucose 162 138 99 Crossmatch Cardiac Studies: No Data to Display
[2020-04-19 10:49] LABS: Glucose Point of Care 109 mg/dL (70-110)
--- NOTE | 2020-04-19 11:56 | P.PN_ITS ---
Subjective Subjective: Interval history: Ms. Simpson is now 7 days status post CABG. We were preparing for discharge earlier today. She complained of right lower extremity swelling, which is the side where her vein graft was harvested. I did elect to perform a venous duplex study to assess for DVT. This was negative for DVT but we did incidentally find a 2 cm pseudoaneurysm at the femoral artery where she previously had an arterial line. I will prepare for an attempt at thrombin injection later this evening or if not feasible or unsuccessful, prepare for open exploration and repair of the femoral artery. She did have breakfast so we will be unable to proceed with surgery until about 4 PM. Vitals/I&O/Wt Last Vital Signs Temp 98.0 F 04/19/20 10:53 Pulse 95 04/19/20 10:53 Resp 18 04/19/20 10:53 BP 146/73 04/19/20 10:53 Pulse Ox 92 04/19/20 10:53 04/18/20 04/19/20 04/19/20 22:59 06:59 14:59 Intake Total 360 / 360 240 / 240 Output Total 650 / 1350 800 / 2150 Balance -290 / -990 -800 / -1790 240 / 240 Physical Exam Extremity: OTHER: There is some generalized swelling of the right lower extremity which is slightly more so than the left. Tenderness in the groin though no frankly obviously palpable pulsatile mass or substantial ecchymosis. There is ecchymosis along the medial thigh from the vein harvest site. Urinary Catheter Management^: Dill: Cath Placed During This Visit: yes, but has since been removed by the nurse Reason for Continuing Indwelling Catheter: Decision to DC Catheter Urinary Catheter Date of Insertion: 04/12/20 Urinary Catheter Time of Insertion: 07:26 Date Urinary Catheter Removed: 04/16/20 Time Urinary Catheter Discontinued: 19:15 Data : 04/16/20 06:15 04/16/20 06:15 A&P Assessment and plan (1) Femoral artery pseudo-aneurysm, right: We will plan for attempt at thrombin injection this afternoon, and if unsuccessful, proceed with right groin exploration. Rationale was carefully discussed. Details with the procedure also carefully reviewed with Ms. Simpson. She is agreeable to proceed. She is currently n.p.o. Status: Acute Attestations Medical Necessity Statement*: 7 days status post CABG. Right femoral artery pseudoaneurysm. Time Spent in Patient Care: 16 - 35 minutes Coding Level of Care Code Acute Technical Project Lead for Sammyg Fwd Diagnoses Femoral artery pseudo-aneurysm, right I72.4
--- NOTE | 2020-04-19 12:09 | PC.NURSE ---
signed surgery consent in file
[2020-04-19] MEDS: lidocaine 1% INJ 20 mL INJECTION (16:25)
[2020-04-19] MEDS: thrombin 5,000 unit SDV 5000 UNIT XX (16:25)
--- NOTE | 2020-04-19 16:36 | SUR.PHASEI ---
1626 PATIENT TO PACU FROM OR. RESTING ON BED, RR EVEN AND UNLABORED. SPO2, 100% ON SIMPLE MASK AT 8L.
--- NOTE | 2020-04-19 16:37 | PM.OP ---
Operative Report Date of procedure: April 19, 2020 Pre-op Diagnosis: Right common femoral artery pseudoaneurysm Post-op diagnosis: same Procedure Done: Thrombin injection of right common femoral artery pseudoaneurysm Pathology: none sent Surgeon: Joey Serna Anesthesia: MAC and Local (2 cc 1% lidocaine infiltrated locally) Condition: stable Disposition: PACU Brief History: 64-year-old female 1 week status post CABG x2. Ultrasound earlier today the right lower extremity due to swelling, which was the vein harvest side, was negative for DVT but did reveal incidental 2 cm right common femoral artery pseudoaneurysm. After evaluation discussion with ultrasonography, I recommended planned elective thrombin injection to attempt to obliterate the pseudoaneurysm. Details of risk the procedure were carefully discussed. Rationale for this approach the possibility of requiring open repair were also carefully discussed. Proper consents have been reviewed and signed. Procedure: Ms. Simpson was taken operating room theater carefully positioned on the OR table. She received IV conscious sedation with continuous anesthesia monitoring. Additionally, the right groin region was carefully inspected with ultrasonography identifying this 2 cm by 1.5 cm pseudoaneurysm which was 2 cm deep to the skin and with a 0.4 cm neck. We felt the location and anatomy was such that was amenable to consider thrombin injection obliteration. Following this, her entire right groin and lower abdomen as well as upper right thigh was sterilely prepped and draped. Sterile ultrasound probe was then placed on the field to again visualize the pseudoaneurysm. 1% lidocaine was infiltrated just lateral to the probe and then utilizing a 22-gauge needle under direct ultrasound guidance, this was inserted into the peripheral portion of the pseudoaneurysm with blood easily aspirated. Saline injection under ultrasonography was performed to confirm appropriate communication with the pseudoaneurysm. Following this, again under direct ultrasound visualization, a total of 0.4 cc of thrombin solution of 1000 units/cc was injected into the pseudoaneurysm at 0.2 cc aliquots with subsequent abrupt obliteration of flow within the pseudoaneurysm. Continued inspection confirmed unobstructed flow through the common femoral artery. This was observed for 1 minute confirming continued obliteration of flow in the pseudoaneurysm and normal flow through the common femoral artery. Needle was withdrawn. Sterile dressing was applied. She tolerated procedure well and was transferred to the transport [facility] and taken to the postoperative care unit. Her right lower extremity remains warm without evidence of embolic phenomenon. I did drug abuse counselor with her at the completion of the procedure.
--- NOTE | 2020-04-19 17:02 | SUR.PHASEI ---
1651 PATIENT TO MED SURG. NO DISTRESS. SPO2 94% ON RA.
--- NOTE | 2020-04-19 17:07 | PC.NURSE ---
patient arrived back on floor, on bedside
--- NOTE | 2020-04-19 17:19 | PC.OT ---
OT note: RN requested pt be placed on hold today due to procedure.
[2020-04-19 17:24] LABS: Glucose Point of Care 104 mg/dL (70-110)
--- NOTE | 2020-04-19 18:25 | P.PN_ITS ---
Subjective Subjective: Interval history: Patient had pain and swelling in the right leg she was noted to have pseudoaneurysm at the site of art line. Medications: Reviewed: Yes Vitals/I&O/Wt Last Vital Signs Temp 98.0 F 04/19/20 17:16 Pulse 77 04/19/20 17:16 Resp 18 04/19/20 17:16 BP 133/74 04/19/20 17:16 Pulse Ox 92 04/19/20 17:16 04/19/20 04/19/20 04/19/20 06:59 14:59 22:59 Intake Total 240 / 240 410 / 650 Output Total 800 / 2150 350 / 350 0 / 350 Balance -800 / -1790 -110 / -110 410 / 300 Physical Exam Narrative: EXAM NARRATIVE: GENERAL: Patient is alert, awake and oriented x3. Sternotomy wound looks good under bandage NECK: No jugular vein distension. HEENT: No cyanosis. No icterus. No pallor. HEART: Regular S1 and S2. No murmur, rub or gallop. LUNGS: Clear to auscultate bilaterally. ABDOMEN: Soft, nontender and nondistended. Positive bowel sounds. No guarding, rebound or tenderness. CENTRAL NERVOUS SYSTEM: Grossly nonfocal. EXTREMITIES: Lower extremities without edema bilaterally. Right leg swollen with bruised and tender to touch near groin. Urinary Catheter Management^: Dill: Cath Placed During This Visit: yes, but has since been removed by the nurse Reason for Continuing Indwelling Catheter: Decision to DC Catheter Urinary Catheter Date of Insertion: 04/12/20 Urinary Catheter Time of Insertion: 07:26 Date Urinary Catheter Removed: 04/16/20 Time Urinary Catheter Discontinued: 19:15 Data : 04/16/20 06:15 04/16/20 06:15 A&P Assessment and plan (1) Femoral artery pseudo-aneurysm, right: Dr. Serna will inject thrombin today. We will discontinue Eliquis Status: Acute (2) Atrial fibrillation: Sinus rhythm. Discontinue Eliquis for pseudoaneurysm and thrombin injection Status: Acute Qualifiers: Atrial fibrillation type: paroxysmal Qualified Code(s): I48.0 - Paroxysmal atrial fibrillation (3) Essential hypertension: Well-controlled. Continue medicine Status: Acute (4) Status post coronary artery bypass graft: Stable from a cardiac perspective. Continue meds Status: Acute Attestations 2 Medical Necessity Statement*: Require continuation hospitalization for above defined care. Coding Level of Care Code Established Pt Acute Custom Shop Worker for Chg Fwd Patient Type Established History Expanded Problem Focused Exam Expanded Problem Focused Medical Decision Making Moderate Complexity Diagnoses Femoral artery pseudo-aneurysm, right I72.4 Atrial fibrillation I48.0 Atrial fibrillation type: paroxysmal Essential hypertension I10 Status post coronary artery bypass graft Z95.1
[2020-04-19] MEDS: atorvastatin 40 mg Tablet PO (19:50)
[2020-04-19 20:14] LABS: Glucose Point of Care 120 mg/dL (70-110)
[2020-04-19] MEDS: oxyCODONE-APAP 5-325 mg Tablet PO (21:55)
[2020-04-19] MEDS: ondansetron 2 mg/ML SDV 2 mL 4 MG IVP (21:58)
[2020-04-20] MEDS: diphenhydrAMINE 25 mg Capsule PO (00:05)
[2020-04-20 04:23] VITALS: RESP 17
[2020-04-20] MEDS: oxyCODONE-APAP 5-325 mg Tablet PO (04:23)
[2020-04-20] MEDS: ondansetron 2 mg/ML SDV 2 mL 4 MG IVP (04:27)
[2020-04-20 04:30] VITALS: BP 122/74; PULSE 97; RESP 20; TEMP 36.8; O2SAT 93
[2020-04-20 06:21] LABS: Glucose Point of Care 118 mg/dL (70-110)
--- NOTE | 2020-04-20 06:23 | USCV_ITS ---
Amanda Simpson Age: 64 Gender: F : 1955 Exam Date: 04/20/2020 06:53 Ordering Phys: Joey Serna MD (Andy) ([email or web address]) Technologist: Ulysses Vinson Exam Location: [facility] [place] Indication: CHECK THROMBOSED PSUEDO ANUR Findings THERE IS NO FLOW IN THE PSUEDO ANEUR THERE IS NORMAL FLOW IN THE NURSING ADMIN AND ANKLE ARTS. No Doppler flow signals in the aneurysm sac Conclusions Possibly thrombosed pseudo-aneurysm sac with no evidence of any blood flow based on the Doppler examination. Dr Bautista Yoon MD FACC (Electronically Signed) Final Date: 20 April 2020 14:17 S
--- NOTE | 2020-04-20 06:40 | PM.PN ---
Subjective Subjective: Interval history: Slept well last night. Status post CABG x2. Status post thrombin injection for pseudoaneurysm with obliteration. Vitals/I&O/Wt Last Vital Signs Temp 98.2 F 04/20/20 04:30 Pulse 97 04/20/20 04:30 Resp 20 H 04/20/20 04:30 BP 122/74 04/20/20 04:30 Pulse Ox 93 04/20/20 04:30 04/19/20 04/19/20 04/20/20 14:59 22:59 06:59 Intake Total 240 / 240 410 / 650 0 / 650 Output Total 350 / 350 300 / 650 200 / 850 Balance -110 / -110 110 / 0 -200 / -200 Weight last 48 hrs Weight 264 lb 1.6 oz Physical Exam Chest: COMMONS NORMALS: normal inspection of the chest (Tenotomy incision clean and dry. Sternum stable. Drain sites well approximated.) Resp: COMMON NORMALS: normal respiratory effort, No retractions, No use of accessory muscles and clear to auscultation bilaterally EFFORT & INSPECTION: Yes able to speak in complete sentences AUSCULTATION: clear to auscultation bilaterally Cardio: COMMON NORMALS: regular rate, regular rhythm, S1 normal heart sound present, No gallops present (Cardio) and No murmurs present (Cardio) RATE: regular rate RHYTHM: regular rhythm HEART SOUNDS: S1 normal heart sound present Extremity: OTHER: Ecchymosis medial right thigh and leg from vein harvest. Right groin is minimally tender with no evidence for swelling. Urinary Catheter Management^: Dill: Cath Placed During This Visit: yes, but has since been removed by the nurse Reason for Continuing Indwelling Catheter: Decision to DC Catheter Urinary Catheter Date of Insertion: 04/12/20 Urinary Catheter Time of Insertion: 07:26 Date Urinary Catheter Removed: 04/16/20 Time Urinary Catheter Discontinued: 19:15 Data : 04/16/20 06:15 04/16/20 06:15 A&P Assessment and plan (1) Femoral artery pseudo-aneurysm, right: Will repeat arterial Doppler interrogation this morning to confirm obliteration Status: Acute (2) Status post coronary artery bypass graft: Will plan for discharge to home later today once arterial Doppler study has been completed and pseudoaneurysm obliteration has been confirmed Status: Acute Attestations Medical Necessity Statement*: Status post CABG Time Spent in Patient Care: 16 - 35 minutes Coding Level of Care Code Acute Montessori Lead Teacher for Amna Fwd Diagnoses Femoral artery pseudo-aneurysm, right I72.4 Status post coronary artery bypass graft Z95.1
--- NOTE | 2020-04-20 07:14 | P.DS_ITS ---
Discharge Providers Date of Admission: 04/12/20 15:00 Date of Discharge: April 20, 2020 Attending Provider at Admission: Joey Serna MD Attending Provider at Discharge: Joey Serna MD Primary Care Provider: Antonio Walls DO Diagnoses at Discharge Discharge Diagnosis (1) Femoral artery pseudo-aneurysm, right: Status: Acute Problem details: Femoral artery pseudoaneurysm resolve status post thrombin injection with obliteration (2) Status post coronary artery bypass graft: Status: Acute Problem details: 1 week status post CABG x2 Reason for Visit Reason for Visit: CAD Hospital Course Hospital Course: Ms. Simpson is a short statured, obese, 64-year-old female with a complex LAD/diagonal lesion that was identified on left heart catheterization on March [address] Blas as part of continued evaluation for suspected coronary artery disease with a history of progressive chest discomfort with exertion and original presentation with A. fib and RVR and abnormal ST changes on EKG. Due to the configuration and complexity of the lesion after careful consideration between Dr. Blas, myself, and Ms. Simpson and her , it was felt that surgical revascularization should be considered. She underwent outpatient preparation and was separately admitted on April 12 with he underwent two-vessel coronary bypass grafting utilizing in situ left internal mammary artery to the LAD and vein graft to the diagonal artery. Postoperatively, she convalesced in the ICU. She was a slow to wean from the respirator and we simply consulted Dr. Arana from pulmonary medicine who assisted in weaning and subsequent extubation. She has made slow but steady progress through her hospital course. She has a right ureteral stent in position due to calculus and is being followed by Dr. Tran. She has had no arrhythmias postop. She underwent active diuresis with good response. Subsequently, mediastinal and pleural drains were discontinued. She has been very cooperative and good use of incentive spirometry. She had been placed on Levaquin preoperatively empirically due to her ureteral stent and this was continued postoperatively. She was transferred to the intermediate care [facility] which continued to do well. Bowel function has returned to normal. No urinary problems. Dill catheter is been removed. Tolerating a diet well. Per our routine, we have recommended home health services, but apparently, there are no available services at this time. I simply recommended consideration for alf care to allow for 2 weeks of inpatient rehab though she has refused despite my strong concerns and lengthy and very luis felipe conversation with her. She actually had a bit of a stumble last night though she did not fall and was assisted by nursing service. I again discussed my concerns with her, though she does not agree to skilled care. As she has received maximal inpatient hospitalization benefit, we will plan for discharge to home despite my reluctance that she refuses alf care. We had originally planned for discharge yesterday, Sunday, April 19. Due to some right lower extremity swelling, on the side of vein harvest, venous duplex study was performed to rule out DVT. This was negative for DVT though an incidental finding of a 2 cm right common femoral artery pseudoaneurysm was noted. Therefore, she underwent thrombin injection yesterday afternoon with obliteration of the pseudoaneurysm. Follow-up repeat ultrasound interrogation this morning, again confirms obliteration of the pseudoaneurysm. Incision line remains clean and dry. Sternum stable. At the time of discharge she is in stable condition. She will follow-up with me on April 22. At his request, we schedule follow-up with Dr. Tran in 2 weeks. We have also made arrangements for follow-up with Ms. Alexander Aleman, who has graciously agreed to assist with incision inspection. Physical Exam Chest: COMMONS NORMALS: normal inspection of the chest (Incision is intact and dry. Drain sites well approximated. Sternum stable to palpation.) Resp: COMMON NORMALS: normal respiratory effort, No retractions and clear to auscultation bilaterally EFFORT & INSPECTION: Yes able to speak in complete sentences AUSCULTATION: clear to auscultation bilaterally Cardio: COMMON NORMALS: regular rate, regular rhythm, S1 normal heart sound present, No gallops present (Cardio), No murmurs present (Cardio) and No rub (Cardio) RATE: regular rate RHYTHM: regular rhythm HEART SOUNDS: S1 normal heart sound present Extremity: OTHER: Ecchymosis along the medial aspect of the right thigh from vein harvest. Right groin with minimal tenderness no evidence for localized swelling. Follow-up arterial duplex done this morning, again confirms obliteration of the pseudoaneurysm status post thrombin injection yesterday. There is unobstructed femoral artery flow distally. No evidence for embolic phenomenon to the right lower extremity by exam. Urinary Catheter Management^: Dill: Cath Placed During This Visit: yes, but has since been removed by the nurse Reason for Continuing Indwelling Catheter: Decision to DC Catheter Urinary Catheter Date of Insertion: 04/12/20 Urinary Catheter Time of Insertion: 07:26 Date Urinary Catheter Removed: 04/16/20 Time Urinary Catheter Discontinued: 19:15 Discharge Data Data Completed and Pending: Completed Studies During Hospitalization Category Date Time Status XR chest 1V 87968 Routine Exams 04/12/20 Completed XR chest 1V rosalia ble 70812 Routine Exams 04/12/20 Completed XR chest 1V rosalia ble 55251 Routine Exams 04/12/20 20:19 Completed XR chest 1V rosalia ble 05261 Routine Exams 04/13/20 06:00 Completed XR chest 1V rosalia ble 65157 Routine Exams 04/14/20 05:00 Completed XR chest 1V rosalia ble 24840 Routine Exams 04/15/20 06:00 Completed XR chest 1V rosalia ble 22044 Routine Exams 04/16/20 06:00 Completed XR chest 2V* 7104 6 Routine Exams 04/07/20 09:15 [place] [address] Routin e Ultrasound 04/19/20 06:39 Completed Pending at discharge Category Date Time Status Complete Crossmat ch Routine Lab 04/07/20 09:45 Results Leukocyte Reduced RBC Routine Lab 04/07/20 09:45 Results Leukocyte Reduced RBC Routine Lab 04/19/20 14:26 Results Leukrd/Plat Phere sis 1st Cont Routi ne Lab 04/07/20 09:45 Results Retype for XM Rou dimitris Lab 04/07/20 09:45 Results Type and Screen - Cardiac Routine Lab 04/07/20 09:45 Results Type and Screen R outine Lab 04/07/20 09:45 Results Type and Screen R outine Lab 04/19/20 14:26 [place] [address] Rout ine Ultrasound 04/20/20 06:23 Taken CV guide vascular access 77748 Rout ine Ultrasound 04/19/20 Taken Labs from last 24 hours 04/20/20 04/19/20 04/19/20 06:08 20:11 17:19 POC Glucose 118 120 104 Blood Type Rho(D) Type Antibody Screen Crossmatch 04/19/20 04/19/20 14:26 10:38 POC Glucose 109 Blood Type A Positive Rho(D) Type Positive Antibody Screen Negative Crossmatch See Detail Vitals: Last Vital Signs Temp 98.2 F 04/20/20 04:30 Pulse 97 04/20/20 04:30 Resp 20 H 04/20/20 04:30 BP 122/74 04/20/20 04:30 Pulse Ox 93 04/20/20 04:30 Discharge Plan Discharge Patient Disposition: Home, Self-Care Condition: Stable Prescriptions: [place] 5-325 mg tablet 1 tab PO Q6H PRN (Reason: pain) 14 Days Qty: 30 RF: 0 [place] 5-325 mg tablet 1 tab PO Q6H PRN (Reason: pain) Qty: 30 RF: 0 amiodarone [Pacerone] 200 mg Tablet 200 mg PO BID Qty: 60 RF: 0 Continued tamsulosin 0.4 mg capsule 0.4 mg PO DAILY 30 Days Qty: 30 RF: 1 atenolol 50 mg tablet 50 mg PO DAILY Qty: 30 RF: 6 furosemide 20 mg tablet 20 mg PO DAILY Qty: 30 RF: 6 losartan 100 mg tablet 100 mg PO DAILY Qty: 30 RF: 6 aspirin 81 mg tablet,delayed release (DR/EC) 81 mg PO DAILY Qty: 30 RF: 6 atorvastatin 40 mg tablet 40 mg PO BEDTIME Qty: 30 RF: 6 isosorbide mononitrate 30 mg tablet extended release 24 hr 30 mg PO DAILY Qty: 30 RF: 6 levothyroxine 100 mcg tablet 100 mcg PO DAILY 30 Days Qty: 30 RF: 0 duloxetine 60 mg capsule,delayed release(DR/EC) 60 mg PO BID 30 Days Qty: 60 RF: 0 metformin 500 mg tablet 500 mg PO DAILY Qty: 30 RF: 0 nitroglycerin 0.4 mg tablet, sublingual 0.4 mg SUBLINGUAL Q5M Qty: 30 RF: 2 Discharge Orders: Discharge Order (Routine); Ordered 04/19/20 Ordered By: Joey Serna Other Ambulatory Orders: Physical Therapy Eval and Treat Outpatient (Order) Timeframe: 2 Days Facility: [facility] - Location: Physical Therapy Ordered By: Joey Serna Referrals: Alexander Aleman FNP-C [Nurse Practitioner] - (1st Appointment on 04/27/2020 9:20am with Alexander CAVAZOS. Will check surgical site, vitals and ensure doing well post discharge. 2nd Appointment on 04/29/2020 9:20am with Alexander CAVAZOS for same post follow up on surgical site and check vitals, etc.) Sumeet Tran MD [Physician] - 2 weeks (You have an appointment with Dr. Tran on May 03 at 9:00am) Joey Serna MD [Physician] - 04/22/20 12:15 pm (You have an appointment on April 22 at 12:15 and check in at 12:00pm) Discharge Diet: Diabetic Discharge Activity: Limit activity as instructed Patient Instructions: Hydrocodone/Acetaminophen (By mouth), Amiodarone (By mo uth), Coronary Artery Bypass Graft (DC) Activity Restrictions/Additional Instructions: No lifting or pushing more than 5 pounds for the next 8 weeks Use shower chair when showering Dry incisions completely after shower, place gauze between breast and resecure bra. Wear a bra at all times except when showering or cleaning incision Elevate legs as much as possible Keep heart pillow close to allow for support with deep breathing, coughing or sneezing Use incentive spirometer frequently Report any fever, incision redness, increasing chest pain, shortness of breath, productive cough, or incision drainage. When outpatient therapy calls to set you up with appointment please mention you would prefer the [facility]. You have been scheduled to see Alexander twice next week for surgical site check, vitals etc. If further appointments are needed please schedule on last appt 04/29/2020 for the following week. Recommend going a few more times to ensure things are going well post surgery. Discharge Attestations Time Spent in Discharge Care*: less than 30 min Specific Discharge Activities: Specific discharge activities: educating patient, discussing with pcp/other providers, discussing with director of casework services/social workers/dc planners, documenting/other paperwork and evaluating patient/reviewing data Status at Discharge: Cognitive status at discharge: cognitively intact , Behavioral status at discharge: cooperative , Quality Metrics Clinical Quality Measures During this hospital stay, did patient experience: None Coding Level of Care Code Acute Chef Passenger Vessel for Sammyg Fwd Diagnoses Femoral artery pseudo-aneurysm, right I72.4 Status post coronary artery bypass graft Z95.1
[2020-04-20 07:38] VITALS: BP 104/67; PULSE 90; RESP 18; TEMP 36.9; O2SAT 95
[2020-04-20 08:08] VITALS: BP 104/67; PULSE 90; RESP 18; TEMP 36.9; O2SAT 95
[2020-04-20] MEDS: amiodarone 200 mg Tablet PO (08:45)
[2020-04-20] MEDS: atenolol 50 mg Tablet PO (08:45)
[2020-04-20] MEDS: metformin 500 mg Tablet PO (08:45)
[2020-04-20] MEDS: aspirin 81 mg EC Tablet PO (08:45)
[2020-04-20] MEDS: mupirocin oint 22 gm 1 APPLIC NASAL (08:45)
[2020-04-20] MEDS: chlorhexidine gluconate 4% Btl 118 mL 1 APPLIC TOPICAL (08:46)
[2020-04-20] MEDS: chlorhexidine gluconate 0.12% Btl 473 mL 15 ML MUCOUS MEM (08:46)
[2020-04-20] MEDS: isosorbide mononitrate ER 30 mg Tablet PO (08:46)
--- NOTE | 2020-04-20 10:16 | PC.NURSE ---
Patient and given discharge instructions and they both verbalized understanding of instructions. Teaching done with patient and on dressing change and patient and advised to hold eliquis per Dr Serna. [facility] delivered home medications. Patient taken to private vehicle via wheelchair by staff.
[2020-04-20 11:29] VITALS: BP 104/67; PULSE 90; RESP 18; TEMP 36.9; O2SAT 95
== END 2020-04-20 10:16 | disposition home or self-care (01) | DRG 235 ==
LOC: ICU 15:01 → MEDSURG 04-17 17:48
PROVIDERS: Internal Medicine Pulmonary Disease; Admitting Provider Thoracic Surgery (Cardiothoracic Vascular Surgery); PCP Family Medicine; Visit Provider Thoracic Surgery (Cardiothoracic Vascular Surgery)
PROC: 02100A9 Bypass Coronary Artery, One Artery from Left Internal Mammary with Autologous Arterial Tissue, Open Approach (ICD-10-PCS; principal; 2020-04-12 07:00)
PROC: 3E05317 Introduction of Other Thrombolytic into Peripheral Artery, Percutaneous Approach (ICD-10-PCS; principal; 2020-04-19 16:00)
DX: I25.119 Atherosclerotic heart disease of native coronary artery with unspecified angina pectoris (principal); J96.00 Acute respiratory failure, unspecified whether with hypoxia or hypercapnia; N20.1 Calculus of ureter; Z68.42 Body mass index [BMI] 45.0-49.9, adult; T81.718A Complication of other artery following a procedure, not elsewhere classified, initial encounter; I10 Essential (primary) hypertension; I48.0 Paroxysmal atrial fibrillation; E11.9 Type 2 diabetes mellitus without complications; I72.4 Aneurysm of artery of lower extremity; Z79.82 Long term (current) use of aspirin; Z79.84 Long term (current) use of oral hypoglycemic drugs; Y69 Unspecified misadventure during surgical and medical care; Y92.230 Patient room in hospital as the place of occurrence of the external cause
CPT/HCPCS: 12345; 36415; 36416; 36600; 71045; 71046; 76000; 76937; 80048; 80051; 80076; 81001; 81003; 82803; 82810; 82947; 82962; 83735; 83986; 84100; 84439; 84443; 85014; 85018; 85025; 85347; 85610; 85730; 86850; 86900; 86920; 87086; 93005; 93926; 93971; 94002; 94003; 94640; 94660; 94799; 96372; 96375; 97110; 97116; 97124; 97161; 97167; 97530; 97535; C9113; J0690; J0697; J1250; J1644; J1815; J1940; J1956; J2250; J2270; J2370; J2405; J2440; J2704; J3010; J3370; J3480; J3490; J7030; J7040; P9016; P9041

== ENCOUNTER → 2020-04-30 09:56 | Outpatient (BNVA) | payer OTHER, SELFPAY | PROVIDERS: PCP Family Medicine; Visit Provider Nurse Practitioner | DX: E11.9 Type 2 diabetes mellitus without complications (principal) | CPT/HCPCS: 80053; 83036; 85025 ==

== ENCOUNTER 2020-05-03 07:11 | Outpatient (CLI) | payer OTHER, SELFPAY ==
--- NOTE | 2020-05-03 08:15 | XR_ITS ---
WS: [id number] ABDOMEN 1 VIEW(S) HISTORY: Stones COMPARISON: 03/10/2020 Normal bowel gas pattern. RIGHT ureteral double pigtail stent catheter remains in good position. No calcifications along the co urse of the stent. No renal calcifications. No bone abnormality. XR/XR KUB [id number] IMPRESSION: RIGHT ureteral stent remains in good position. No associated calcifications.
== END 2020-05-03 07:12 | disposition home or self-care (01) ==
PROVIDERS: PCP Family Medicine; Visit Provider Nurse Practitioner Family
DX: N20.1 Calculus of ureter (principal); Z96.0 Presence of urogenital implants
CPT/HCPCS: 74018; 81001

== ENCOUNTER 2020-05-06 09:38 | Day surgery (SDC) | payer OTHER, SELFPAY ==
[2020-05-05 10:26] VITALS: BMI 47.2
--- NOTE | 2020-05-05 10:31 | ECG_ITS ---
[facility] Test Date: 2020-05-05 Pat Name: Amanda Simpson Department: Room: Gender: Female Tools Developer: : 1955 Requested By: Ilda Cunningham Order Number: [id number] Inder MD: Niko Yoon M.D. Measurements Intervals [place] Rate: 69 P: 67 [place]: 166 QRS: 70 QRSD: 100 T: 134 QT: 402 QTc: 433 Interpretive Statements SINUS RHYTHM POSSIBLE LEFT ATRIAL ENLARGEMENT [-0.1mV P WAVE IN V1/V2] ST DEVIATION AND MODERATE T-WAVE ABNORMALITY, CONSIDER LATERAL ISCHEMIA [-0.1+ mV T WAVE IN I/aVL/V5/V6] Compared to ECG 04/13/2020 05:29:22 T-wave abnormality now present Possible ischemia now present Atrial-paced complex(es) or rhythm no longer present Ventricular-paced complex(es) or rhythm no longer present Electronically Signed On 05-05-2020 18:04:00 CDT by Niko Yoon M.D. [email or web address]
--- NOTE | 2020-05-05 11:43 | ANES.PREANE2 ---
Pre-Anesthetic Assessment Pre-Anesthetic Assessment: Height/Weight: Height 1.52 m Weight 109.769 kg Preop Diagnosis: Right proximal ureteral stone Proposed Procedure: Operation Date: 05/06/20 12:00 Proposed Procedures p Cystoscopy 60895 [id number] N20.1(Right) - MD tere Contreras Retrograde Pyelogram(Not Applicable) - MD tere Contreras Ureteroscopy(Not Applicable) - MD tere Conterras Laser Lithotripsy(Not Applicable) - MD tere Contreras Ureteral Stent Exchange(Not Applicable) - Sumeet Tran MD Familial anesthetic complications: None Social: Social History: No alcohol and No tobacco Exam: Pre-Anes Outpt Exam: alert, oriented x 3, clear to auscultation bilaterally and regular rate & rhythm Airway: Cervical ROM: WNL MP: 4 Dentition: Full Pulmonary: Pulmonary: Sleep apnea (cpap) CV/HEM: CV/HEM: Arrythmia, CAD and HTN Comments: CABG in March 2020 : : None reported Hepatic: Hepatic: None reported Metabolic: Metabolic: DM and Morbid obesity Musc/skel: Comments: s/p sternotomy Neuropsych: Neuropsych: None reported Anesthetic Plan: ASA status: 4 Anesthesia: General Risk of > 500 ml blood loss (7ml/kg in children): No PFSH Anesthesia PFSH: Medical History Abnormal finding on EKG -Noted to have ST depression on EKG -Troponins noted, delta not calculated -Telemetry monitoring -Echo limited study but no noted gross wall motion abnormalities, G1DD -Nuclear stress testing with noted small area of old AR surrounded by moderate area of medium sized neel-infarct ischemia noted in leads to distal anterior wall suggestive of possible lesion in the LAD territory, TID ratio is elevated. Will likely need further evaluation with cardiac catheterization. Results discussed with Dr. Blas. -on aspirin, statin, Plavix, beta-kassy. We will hold anticoagulation for planned procedure today. Given non-invasive nature of procedure, do not anticipate higher than average risk for complications -BP controlled, continue to monitor vital signs Anxiety Atrial fibrillation DM type 2 (diabetes mellitus, type 2) Essential hypertension Fibromyalgia GERD (gastroesophageal reflux disease) -on famotidine Hydronephrosis Hypertension -Presented with hypertensive urgency, BP controlled -Continue to monitor vital signs -Continue losartan, Lasix, atenolol Hypothyroidism -TSH wnl -on levothyroxine Right ureteral calculus Surgical History H/O: hysterectomy Status post coronary artery bypass graft 1 week status post CABG x2 Family History Grandfather Family history of premature coronary artery disease Grandfather of AR at age 50 Social History Smoking and tobacco status: never smoked Alcohol intake: never Adopted: No Caregiver/support person: No Lives independently: No Household members: family Housing: House Marital status: Current occupational status: employed Current gender identity: Female Data Anesthesia Cardiac Studies: No Data to Display
[2020-05-06] VITALS (8 sets, daily range): BP systolic 131–171; BP diastolic 54–85; PULSE 56–60; RESP 16–18; TEMP 36.6–36.9; O2SAT 93–100
--- NOTE | 2020-05-06 | SCC_ITS ---
Procedure Done: 1. Cystoscopy with right ureteral stent removal. 2. Right ureteroscopy, laser lithotripsy, stent placement 26.1 seconds of fluoroscopic guidance, for a cumulative dose of 12.53 mGy, was provided to Dr. Tran by the radiology department. No permanent C-maria l images were obtained. [facility]
[2020-05-06 04:29] LABS: Alanine Aminotransferase 22 U/L (0-33); Albumin Level 3.7 g/dL (3.5-5.2); Alkaline Phosphatase 107 IU/L (35-105); Anion Gap 15.1 (5-19); Aspartate Amino Transferase 19 U/L (0-32); Blood Urea Nitrogen 14 mg/dL (8-23); Calcium 8.6 mg/dL (8.5-10.5); Carbon Dioxide 26 mmol/L (22-29); Chloride 100 mmol/L (98-107); Glomerular Filtration Rate 56.2 mL/min (90-130); Glucose 118 mg/dL (65-115); Osmolality Calculated 281 mOsm/kg (285-295); Potassium 4.1 mmol/L (3.5-5.1); Sodium 137 mmol/L (136-145); Total Bilirubin 0.6 mg/dL (0.15-1.2); Total Protein 6.7 g/dL (6.6-8.7)
--- NOTE | 2020-05-06 10:00 | SC_ITS ---
WS: [id number] C-ARM RADIOGRAPHS ABDOMEN; 2 IMAGES HISTORY: Right ureteroscopy COMPARISON: None available. Intraoperative imaging during RIGHT ureteral stent placement. Stent projects over the upper pole of t he RIGHT kidney. SC/C-arm [place] for Urology IMPRESSION: Intraoperative imaging during RIGHT ureteral stent placement.
[2020-05-06] MEDS: sodium chloride 0.9% 1,000 ML 30 ML IV (10:35)
[2020-05-06 10:40] LABS: Glucose Point of Care 100 mg/dL (70-110)
--- NOTE | 2020-05-06 12:02 | W.PM.OPSUD ---
Surgery/Procedure H&P Update DATE OF PROCEDURE: May 06, 2020 DATE H&P PERFORMED: 05/03/20 H&P UPDATE INFORMATION: I have reviewed H&P completed within last 30 days, I have examined patient prior to procedure, No changes to prior documentation and H&P is in [facility] EMR on date indicated CHANGES TO PREVIOUS DOCUMENTATION: Discussed the procedure again with the patient and her . All questions answered. PREOP DIAGNOSIS: Right proximal ureteral stone PLANNED PROCEDURE: Operation Date: 05/06/20 12:00 Proposed Procedures p Cystoscopy [id number] N20.1(Right) - Sumeet Tran MD s Retrograde Pyelogram(Not Applicable) - MD tere Contreras Ureteroscopy(Not Applicable) - MD tere Contreras Laser Lithotripsy(Not Applicable) - MD tere Contreras Ureteral Stent Exchange(Not Applicable) - Sumeet Tran MD
--- NOTE | 2020-05-06 12:03 | PM.OP ---
Operative Report Date of procedure: May 06, 2020 Pre-op Diagnosis: Right proximal ureteral stone Post-op diagnosis: same Procedure Done: 1. Cystoscopy with right ureteral stent removal. 2. Right ureteroscopy, laser lithotripsy, stent placement Specimens removed/disposition: Stone Surgeon: Marc Anesthesia: General Urine output: Not measured Condition: stable Brief History: Amanda is a very pleasant 64-year-old white female who was recently diagnosed with an obstructing right ureteral stone that was treated with endoscopy and stenting. She was known to have another stone in her right kidney and plans were made to remove the stent and follow that stone with possible delayed ESWL pending her choice. Unfortunately that stone dropped down into the right proximal ureter prior to stent removal and plans were made to remove it endoscopically but she developed increasing chest pain and required CABG since that time. She is now about 3 weeks postop and was felt to be cleared enough to proceed with treatment of the stone. She has had a stent indwelling since the initial procedure on 02/26/2020. Procedure: After routine preoperative evaluation examination and obtaining of informed consent she was taken to the operating suite on 05/06/2020 where general anesthesia was administered without difficulty after appropriate timeout was performed, SCDs confirmed to be functioning, preoperative antibiotics administered, beta-kassy protocol confirmed. Prepped and draped in the usual sterile fashion in dorsolithotomy position pain careful attention to avoiding pressure points. 21 Martiniquais cystoscope with 30 degree lens was introduced into the urethral meatus and advanced into the bladder under videoscopy. Bladder was systematically examined. Stent was in the expected position. Some mild inflammatory changes related to the stent. The stent was grasped with grasping forceps and withdrawn through the urethral meatus. A flexible tip guidewire was then advanced up the stent without difficulty with uncurling of the proximal end. The stent was then withdrawn over the guidewire. The wire was secured to the drapes as a safety wire and the offset semirigid ureteroscope was then advanced up the right ureter next to the stent where the stone was encountered in the mid ureter. It was too large to pull out intact and for that reason a 365 ?m homing laser fiber was utilized to fragment into very small pieces mostly sand size much of which were flushed through the scope. A parachute basket was used to remove the remaining pieces and 2 passes. Final inspection revealed no significant fragments remaining. The site where the stone had been located was quite inflamed consistent with the time that it has been in place and for that reason it was decided to leave a stent indwelling. The cystoscope was then backloaded over the safety wire and a 4.7 Martiniquais by 24 cm double-pigtail stent was advanced over the guidewire through the cystoscope into appropriate position as confirmed via fluoroscopy and cystoscopy. Bladder was drained and the procedure completed. Tolerated procedure well without complications and was awakened in the operating room and returned to the cover him in stable condition. PLANS: 1. Follow-up in my office late next week for cystoscopy and stent removal
[2020-05-06] MEDS: levofloxacin-dextrose 5 % 750 MG/150 ML PREMIX 100 MG IV (12:58)
--- NOTE | 2020-05-06 13:46 | SUR.PHASEI ---
PT SLEEPING QUIETLY VSS IV PATENT TO LT AC RT FOREARM IV DCD IN OR DUE TO INFILTRATION, RT ARM FIRM COOL WITH WARM FINGERS AND CAP REFILL LESS THAN 3 SECONDS.
--- NOTE | 2020-05-06 14:02 | SUR.PHASEI ---
1358 PT TO OPS PER BED HANDOFF AT BEDSIDE, VSS PT ALERT AND ASKING FOR JUICE.
[2020-05-06] MEDS: HYDROcodone-acetaminophen 5-325 mg Tablet 1 TAB PO (14:35)
[2020-05-12 14:10] LABS: Stone Source RIGHT URETER
== END 2020-05-06 15:00 | disposition home or self-care (01) ==
PROVIDERS: Anesthesiology; PCP Family Medicine; Visit Provider Urology
PROC: 0TJB8ZZ Inspection of Bladder, Via Natural or Artificial Opening Endoscopic (ICD-10-PCS; CPT 52000; principal; 2020-05-06 12:00)
PROC: 0TJ98ZZ Inspection of Ureter, Via Natural or Artificial Opening Endoscopic (ICD-10-PCS; CPT 52351; 2020-05-06 12:00)
PROC: (CPT 52356; 2020-05-06 12:00)
PROC: (CPT 52356; 2020-05-06 12:00)
DX: N20.1 Calculus of ureter (principal); G47.30 Sleep apnea, unspecified; I25.10 Atherosclerotic heart disease of native coronary artery without angina pectoris; I10 Essential (primary) hypertension; Z95.1 Presence of aortocoronary bypass graft; E11.9 Type 2 diabetes mellitus without complications; E66.01 Morbid (severe) obesity due to excess calories; Z68.42 Body mass index [BMI] 45.0-49.9, adult; M79.7 Fibromyalgia; E03.9 Hypothyroidism, unspecified
CPT/HCPCS: 52356; 12345; 36416; 76000; 80053; 82365; 82962; 88300; 93005; 93010; J1956; J2250; J2405; J2704; J2765; J3010; J3490; J7030

== ENCOUNTER 2020-05-14 08:56 | Outpatient (CLI) | payer OTHER, SELFPAY ==
--- NOTE | 2020-05-14 09:03 | XRR_ITS ---
PROCEDURE INFORMATION: Exam: XR Abdomen, 1 View Exam date and time: 05/14/2020 9:16 AM Age: 64 years old Clinical indication: Condition or disease; Kidney or ureter condition; Calculus (stone) in ureter; Prior surgery; Surgery date: <1 month; Surgery type: Stents placed; Patient HX: Stone follow up; Ureteral stent exchanged; Additional info: Stones TECHNIQUE: Imaging protocol: XR of the abdomen. Views: Frontal supine view of the abdomen. 1 View. COMPARISON: CR XR KUB [id number] 05/03/2020 7:23 AM FINDINGS: Gastrointestinal tract: There is mildly increased stool noted in the ascending and transverse colon. Organs: No urinary tract calcifications identified. Stable right internalized double-J ureteral stent placement. Vasculature: Calcified phleboliths are present in the lower pelvis bilaterally. Bones/joints: Bilateral lower lumbar facet primary osteoarthritis. Lumbar spine vertebral body marginal osteophytes are noted at multiple levels. XR/XR KUB [id number] IMPRESSION: 1. Mild abdominal colonic constipation. 2. Stable right internalized double-J ureteral stent placement.
== END 2020-05-14 08:57 | disposition home or self-care (01) ==
LOC: RAD 08:58
PROVIDERS: PCP Family Medicine; Visit Provider Urology
DX: N20.1 Calculus of ureter (principal); K59.00 Constipation, unspecified; Z96.0 Presence of urogenital implants
CPT/HCPCS: 74018; 81001